=== PATIENT | female | born 1955 | race Caucasian/White ===

== ENCOUNTER 2017-11-27 12:50 | Emergency (ER) | payer BC ==
[2017-11-27] MEDS ORDERED: KETOROLAC 30 MG/ML INJ ONE (13:36)
[2017-11-27] MEDS ORDERED: NA CHLORIDE 0.9% 1,000 ML ONE (13:36)
[2017-11-27 13:37] LABS: Absolute Lymphocytes (CBC) 1.9 K/uL (0.7-4.9); Absolute Monocytes 0.3 K/uL (0.1-1.3); Absolute Neutrophil 3.4 K/uL (1.8-8.0); Basophils % 0.6 % (0-1.3); Eosinophils % 1.9 % (0-4.4); Hematocrit 38.2 % (36.0-45.0); Lymphocytes % 33.7 % (15.3-44.8); MCH 29.7 pg (27.0-35.0); MCV 87.5 fL (80-100); MPV 7.9 fL (7.6-11.3); Monocytes % 4.6 % (3.3-12.3); RBC Red Blood Cell Count 4.36 M/uL (3.86-4.86)
[2017-11-27 13:57] LABS: ALT/SGPT 28 U/L (12-78); AST/SGOT 16 U/L (15-37); Albumin 3.6 g/dL (3.4-5.0); Alkaline Phosphatase 112 U/L (45-117); BUN Blood Urea Nitrogen 13 mg/dL (7-18); Bicarbonate 28 mmol/L (21-32); Bilirubin Direct < 0.1 mg/dL (0-0.2); Bilirubin Total 0.4 mg/dL (0.2-1.0); Glucose Level 192 mg/dL (74-106); Lipase 107 U/L (73-393); Potassium 3.7 mmol/L (3.5-5.1); Protein, Total 7.3 g/dL (6.4-8.2); Sodium Level 146 mmol/L (136-145)
[2017-11-27 14:32] LABS: Urine Blood TRACE (NEG); Urine Glucose NEGATIVE (NEG); Urine Protein NEGATIVE (NEG); Urine Specific Gravity >1.030 (1.005-1.030); Urine pH 5.5 (5.0-7.0)
[2017-11-27 14:33] LABS: Urine Bacteria <20 /HPF (<20); Urine Culture Reflex Order NOT NEEDED; Urine Mucus 2+ /HPF (NONE SEEN); Urine RBC <5 /HPF (NONE SEEN)
--- NOTE | 2017-11-27 16:10 | RAD REPORT ---
EXAM DESCRIPTION: CT - Abdomen Pelvis W Contrast - 11/27/2017 3:13 pm CLINICAL HISTORY: Abdominal pain. Left lower quadrant pain COMPARISON: 2008 TECHNIQUE: Computed axial tomography of the abdomen and pelvis was obtained. 100 cc Isovue-300 is ad ministered intravenously. Oral contrast was given. All CT scans are performed using dose optimization technique as appropriate and may include automated exposure control or mA/KV adjustment according to patient size. FINDINGS: The gallbladder has been removed. The liver, spleen, pancreas, adrenals and kidneys appear unremarkable. There is no evidence of diverticulitis IMPRESSION: No acute abnormality is displayed
[2017-11-27] MEDS ORDERED: FENTANYL CITR 100 MCG/2 ML ONE (16:13)
--- NOTE | 2017-11-27 16:54 | EDPHYS ---
Physician Documentation [facility] Name: Ina Colmenares Age: 62 yrs Sex: Female : 1955 Arrival Date: 11/27/2017 Time: 12:52 Bed 27 Private MD: Shar Webb R ED Physician Kike Pro HPI: 11/27 17:13 This 62 yrs old Female presents to ER via Ambulatory with complaints of wa Abdominal Pain - x1 Week. 17:13 The patient presents with abdominal pain in the left lower quadrant. Onset: The wa symptoms/episode began/occurred 1 week(s) ago. The symptoms do not radiate. Associated signs and symptoms: Pertinent negatives: nausea and vomiting, diarrhea, fever, palpitations, shortness of breath, vomiting. Associated signs and symptoms:. The symptoms are described as sharp. Modifying factors: The symptoms are alleviated by nothing, the symptoms are aggravated by nothing. Severity of pain: At its worst the pain was moderate in the emergency department the pain is actually worse moderately. The patient has not experienced similar symptoms in the past. The patient has not recently seen a physician. Historical: - Allergies: 13:11 No Known Allergies; ph - PMHx: 13:11 Hypothyroidism; breast cancer; Hyperlipidemia; Depression; ph - PSHx: 13:11 bilateral mastectomy; cyst removal to dorsal right foot; ; Appendectomy; ph shoulder sx; Knee surgery; Hysterectomy; - Immunization history:: Adult Immunizations unknown. - Social history:: Smoking status: Patient/guardian denies using tobacco. - Ebola Screening: : No symptoms or risks identified at this time. - Family history:: not pertinent. - Hospitalizations: : No recent hospitalization is reported. ROS: 17:15 Constitutional: Negative for fever, chills, and weight loss, Eyes: Negative for injury, wa pain, redness, and discharge, ENT: Negative for injury, pain, and discharge, Neck: Negative for injury, pain, and swelling, Cardiovascular: Negative for chest pain, palpitations, and edema, Respiratory: Negative for shortness of breath, cough, wheezing, and pleuritic chest pain, Back: Negative for injury and pain, : Negative for injury, bleeding, discharge, and swelling, MS/Extremity: Negative for injury and deformity, Skin: Negative for injury, rash, and discoloration, Neuro: Negative for headache, weakness, numbness, tingling, and seizure. 17:15 Abdomen/GI: Positive for abdominal pain, of the left lower quadrant, Negative for nausea, vomiting, diarrhea. 17:15 All other systems are negative. Exam: 17:15 Constitutional: This is a well developed, well nourished patient who is awake, alert, wa and in no acute distress. Head/Face: Normocephalic, atraumatic. Eyes: Pupils equal round and reactive to light, extra-ocular motions intact. Lids and lashes normal. Conjunctiva and sclera are non-icteric and not injected. Cornea within normal limits. Periorbital areas with no swelling, redness, or edema. ENT: Nares patent. No nasal discharge, no septal abnormalities noted. Tympanic membranes are normal and external auditory canals are clear. Oropharynx with no redness, swelling, or masses, exudates, or evidence of obstruction, uvula midline. Mucous membranes moist. Neck: Trachea midline, no thyromegaly or masses palpated, and no cervical lymphadenopathy. Supple, full range of motion without nuchal rigidity, or vertebral point tenderness. No Meningismus. Cardiovascular: Regular rate and rhythm with a normal S1 and S2. No gallops, murmurs, or rubs. Normal PMI, no JVD. No pulse deficits. Respiratory: Lungs have equal breath sounds bilaterally, clear to auscultation and percussion. No rales, rhonchi or wheezes noted. No increased work of breathing, no retractions or nasal flaring. Back: No spinal tenderness. No costovertebral tenderness. Full range of motion. Skin: Warm, dry with normal turgor. Normal color with no rashes, no lesions, and no evidence of cellulitis. MS/ Extremity: Pulses equal, no cyanosis. Neurovascular intact. Full, normal range of motion. Neuro: Awake and alert, GCS 15, oriented to person, place, time, and situation. Cranial nerves II-XII grossly intact. Motor strength 5/5 in all extremities. Sensory grossly intact. Cerebellar exam normal. Normal gait. Psych: Awake, alert, with orientation to person, place and time. Behavior, mood, and affect are within normal limits. 17:15 Abdomen/GI: Inspection: abdomen appears normal, Bowel sounds: normal, in all quadrants, Palpation: soft, in all quadrants, moderate abdominal tenderness, in the suprapubic area, left upper quadrant and left lower quadrant. Vital Signs: 13:11 BP 129 / 76; Pulse 100; Resp 16; Temp 97.4; Pulse Ox 98% on R/A; Weight 81.65 kg; ph Height 5 ft. 7 in. (170.18 cm); Pain 9/10; 14:27 BP 116 / 71; Pulse 78; Resp 17; Pulse Ox 98% on R/A; kr2 14:45 BP 114 / 70; Pulse 76; Resp 19; Pulse Ox 99% on R/A; kr2 16:08 BP 148 / 82; Pulse 74; Resp 17; Pulse Ox 98% on R/A; kr2 17:11 BP 136 / 78; Pulse 72; Resp 16; Pulse Ox 99% on R/A; kr2 13:11 Body Mass Index 28.19 (81.65 kg, 170.18 cm) ph MDM: 13:01 Patient medically screened. me 17:16 Differential diagnosis: bowel obstruction, diverticulitis, non-specific abd pain, wa Pyelonephritis, Ureterolithiasis, urinary tract infection. 17:16 Data reviewed: vital signs, nurses notes, lab test result(s), radiologic studies. Test wa interpretation: by ED physician or midlevel provider: labs noted wnl. CT abd/pelvis: no acute process.. Test interpretation: by ED physician or midlevel provider: labs noted for hyperglycemia. Response to treatment: the patient's symptoms have markedly improved after treatment. Special discussion: negative work up in pt with LLQ abd pain. discussed hyperglycemia and the need to get f/u. will have f/u closely with GI and or PMD. 11/27 13:24 Order name: Basic Metabolic Panel 11/27 13:24 Order name: CBC with Diff; Complete Time: 15:08 11/27 13:24 Order name: Hepatic Function 11/27 13:24 Order name: Lipase; Complete Time: 15: me 11/27 13:24 Order name: Urine Microscopic Only; Complete Time: 15:11/27 13:25 Order name: Basic Metabolic Panel; Complete Time: 15:08 EDMS 11/27 13:24 Order name: IV Saline Lock; Complete Time: 13:31 me 11/27 13:24 Order name: Labs collected and sent; Complete Time: 13:31 me 11/27 13:25 Order name: Liver (Hepatic) Function; Complete Time: 15:08 [facility] 11/27 13:25 Order name: CT Abd/Pelvis - W/Contrast; Complete Time: 16:37 me 11/27 14:08 Order name: Urine Dipstick--Ancillary (enter results); Complete Time: 15:07 11/27 13:24 Order name: Urine Dipstick-Ancillary (obtain specimen); Complete Time: 13:31 me Administered Medications: 13:37 Drug: NS 0.9% 1000 ml Route: IV; Rate: 1 bolus; Site: right forearm; kr2 14:45 Follow up: Response: No adverse reaction; IV Status: Completed infusion kr2 13:37 Drug: TORadol 30 mg Route: IVP; Site: right forearm; kr2 14:00 Follow up: Response: No adverse reaction; Pain is decreased kr2 16:40 Drug: fentaNYL (PF) 50 mcg Route: IVP; Site: right forearm; kr2 17:10 Follow up: Response: No adverse reaction; Pain is decreased kr2 Disposition: 11/27/17 16:53 Discharged to Home. Impression: Acute left-Sided Abdominal Pain. - Condition is Stable. - Discharge Instructions: Abdominal Pain, Adult. - Prescriptions for Zofran 4 mg Oral Tablet - take 1 tablet by ORAL route every 12 hours As needed; 6 tablet. Woodson 5- 325 mg Oral Tablet - take 1 tablet by ORAL route every 6 hours As needed; 15 tablet. - Medication Reconciliation Form, Thank You Letter, Antibiotic Education, Prescription Opioid Use form. - Follow up: Kike Gloria MD; When: 1 - 2 days; Reason: Recheck today's complaints. - Problem is new. - Symptoms have improved. - Notes: return immediately for rapidly worsening pain adn or vomiting and or fever. see your doctor or the gastro doctor prescribed you within 72 hours for further assessment as the reason for your pain is not entirely clear at the moment Signatures: Dispatcher [employer] Susan Rivas RN RN Kike Pro MD MD wa Reaves, Karey, RN RN kr2 Corrections: (The following items were deleted from the chart) 17:12 16:53 11/27/2017 16:53 Discharged to Home. Impression: Acute left-Sided Abdominal Pain. kr2 Condition is Stable. Forms are Medication Reconciliation Form, Thank You Letter, Antibiotic Education, Prescription Opioid Use. Follow up: Kike Gloria; When: 1 - 2 days; Reason: Recheck today's complaints. Problem is new. Symptoms have improved. wa
--- NOTE | 2017-11-27 16:54 | ER ---
Nurse's Notes [facility] Name: Ina Colmenares Age: 62 yrs Sex: Female : 1955 Arrival Date: 11/27/2017 Time: 12:52 Bed 27 Private MD: Shar Webb R Diagnosis: Acute left-Sided Abdominal Pain Presentation: 11/27 13:08 Presenting complaint: Patient states: " I have been having pain in my side that comes ph around, I can't even stand up straight." Pt reports L flank pain that radiates to LLQ, also reports diarrhea, denies N/V or urinary symptoms. Transition of care: patient was not received from another setting of care. Onset of symptoms was November 27, 2017. Risk Assessment: Do you want to hurt yourself or someone else? Patient reports no desire to harm self or others. Initial Sepsis Screen: Does the patient meet any 2 criteria? No. Patient's initial sepsis screen is negative. Does the patient have a suspected source of infection? No. Patient's initial sepsis screen is negative. Care prior to arrival: None. 13:08 Method Of Arrival: Ambulatory ph 13:08 Acuity: SHE 3 ph Historical: - Allergies: 13:11 No Known Allergies; ph - PMHx: 13:11 Hypothyroidism; breast cancer; Hyperlipidemia; Depression; ph - PSHx: 13:11 bilateral mastectomy; cyst removal to dorsal right foot; ; Appendectomy; ph shoulder sx; Knee surgery; Hysterectomy; - Immunization history:: Adult Immunizations unknown. - Social history:: Smoking status: Patient/guardian denies using tobacco. - Ebola Screening: : No symptoms or risks identified at this time. - Family history:: not pertinent. - Hospitalizations: : No recent hospitalization is reported. Screenin:10 Abuse screen: Denies threats or abuse. Denies injuries from another. Nutritional kr2 screening: No deficits noted. Tuberculosis screening: No symptoms or risk factors identified. Fall Risk None identified. Assessment: 13:10 General: Appears in no apparent distress. uncomfortable, well groomed, well developed, kr2 well nourished, Behavior is cooperative, appropriate for age, anxious. Pain: Complains of pain in suprapubic area, anterior aspect of left lateral abdomen, left upper quadrant and left lower quadrant Pain currently is 8 out of 10 on a pain scale. Quality of pain is described as sharp, shooting, stabbing, Pain began 1 week ago, worse today Is continuous, Alleviated by rest, Aggravated by increased activity, repositioning. Neuro: Level of Consciousness is awake, alert, obeys commands, Oriented to person, place, time, situation, Appropriate for age. Cardiovascular: Capillary refill < 3 seconds in bilateral fingers. Respiratory: Airway is patent Respiratory effort is even, unlabored, Respiratory pattern is regular, symmetrical. GI: Bowel sounds present X 4 quads. Abd is soft X 4 quads Abdomen is tender to palpation in suprapubic area, left upper quadrant and left lower quadrant Reports upper abdominal pain. : Urine is clear. EENT: Oral mucosa is moist. Derm: Skin is intact, is healthy with good turgor, Skin is pink, warm \\T\\ dry. Musculoskeletal: Circulation, motion, and sensation intact. 14:26 Reassessment: Patient appears in no apparent distress at this time. Patient and/or kr2 family updated on plan of care and expected duration. Pain level reassessed. Patient is alert, oriented x 3, equal unlabored respirations, skin warm/dry/pink. Patient states symptoms have improved. 14:44 Reassessment: Patient appears in no apparent distress at this time. Patient and/or kr2 family updated on plan of care and expected duration. Pain level reassessed. Patient is alert, oriented x 3, equal unlabored respirations, skin warm/dry/pink. Patient reports having diarrhea, more than usual. States she normally takes a laxative so it is not unusual for her to have diarrhea but she has had more frequent "bouts today". 15:23 Reassessment: Patient appears in no apparent distress at this time. Patient and/or kr2 family updated on plan of care and expected duration. Pain level reassessed. Patient is alert, oriented x 3, equal unlabored respirations, skin warm/dry/pink. Patient states feeling better. 16:07 Reassessment: Patient appears in no apparent distress at this time. Patient and/or kr2 family updated on plan of care and expected duration. Pain level reassessed. Patient is alert, oriented x 3, equal unlabored respirations, skin warm/dry/pink. Patient reports pain is starting to return to left lower quadrant, provider notified. 17:11 Reassessment: Patient appears in no apparent distress at this time. Patient and/or kr2 family updated on plan of care and expected duration. Pain level reassessed. Patient is alert, oriented x 3, equal unlabored respirations, skin warm/dry/pink. Patient states feeling better. Patient states symptoms have improved. Vital Signs: 13:11 BP 129 / 76; Pulse 100; Resp 16; Temp 97.4; Pulse Ox 98% on R/A; Weight 81.65 kg; ph Height 5 ft. 7 in. (170.18 cm); Pain 9/10; 14:27 BP 116 / 71; Pulse 78; Resp 17; Pulse Ox 98% on R/A; kr2 14:45 BP 114 / 70; Pulse 76; Resp 19; Pulse Ox 99% on R/A; kr2 16:08 BP 148 / 82; Pulse 74; Resp 17; Pulse Ox 98% on R/A; kr2 17:11 BP 136 / 78; Pulse 72; Resp 16; Pulse Ox 99% on R/A; kr2 13:11 Body Mass Index 28.19 (81.65 kg, 170.18 cm) ph ED Course: 12:52 Patient arrived in ED. as 12:53 Shar Webb MD is Private Physician. as 13:01 Kike Pro MD is Attending Physician. wa 13:01 Josseline Cohen, ALBERT is Primary Nurse. kr2 13:10 Triage completed. ph 13:10 Patient has correct armband on for positive identification. Bed in low position. Call kr2 light in reach. Side rails up X 1. Pulse ox on. NIBP on. Door closed. Warm blanket given. Head of bed elevated. 13:12 Arm band placed on. ph 13:20 Urine collected: clean catch specimen, clear. Inserted saline lock: 20 gauge in right kr2 forearm, using aseptic technique. Blood collected. 15:13 CT Abd/Pelvis - W/Contrast In Process Unspecified. EDMS 16:52 Kike Gloria MD is Referral Physician. wa 17:10 No provider procedures requiring assistance completed. IV discontinued, intact, kr2 bleeding controlled, No redness/swelling at site. Pressure dressing applied. Administered Medications: 13:37 Drug: NS 0.9% 1000 ml Route: IV; Rate: 1 bolus; Site: right forearm; kr2 14:45 Follow up: Response: No adverse reaction; IV Status: Completed infusion kr2 13:37 Drug: TORadol 30 mg Route: IVP; Site: right forearm; kr2 14:00 Follow up: Response: No adverse reaction; Pain is decreased kr2 16:40 Drug: fentaNYL (PF) 50 mcg Route: IVP; Site: right forearm; kr2 17:10 Follow up: Response: No adverse reaction; Pain is decreased kr2 Outcome: 16:53 Discharge ordered by . naveen 17:10 Discharged to home via wheelchair, with family. kr2 17:10 Condition: stable 17:10 Discharge instructions given to patient, family, Instructed on discharge instructions, follow up and referral plans. medication usage, Demonstrated understanding of instructions, follow-up care, medications, Prescriptions given X 2. 17:12 Patient left the ED. kr2 Signatures: Dispatcher [employer] EDTaniya Jones Patricia, RN RN Kike Pro MD MD wa Reaves, Karey, RN RN kr2
[2017-11-27 17:19] VITALS: TEMP 97.4
[2017-11-27 17:24] VITALS: BP 136/78; O2SAT 99
== END 2017-11-27 17:12 | disposition home or self-care (01) ==
LOC: ER 12:50
DX: R10.32 Left lower quadrant pain (principal); E03.9 Hypothyroidism, unspecified; Z85.3 Personal history of malignant neoplasm of breast; Z90.13 Acquired absence of bilateral breasts and nipples
CPT/HCPCS: 36415; 74177; 80048; 80076; 81003; 81015; 83690; 85025; 96361; 96374; 96375; 99284; J3010; J7030; Q9967

== ENCOUNTER 2018-02-14 16:29 | Emergency (ER) | payer BC ==
[2018-02-14 17:21] LABS: Absolute Lymphocytes (CBC) 2.9 K/uL (0.7-4.9); Absolute Monocytes 0.3 K/uL (0.1-1.3); Absolute Neutrophil 5.7 K/uL (1.8-8.0); Basophils % 0.5 % (0-1.3); Eosinophils % 0.5 % (0-4.4); Hematocrit 35.4 % (36.0-45.0); Lymphocytes % 32.3 % (15.3-44.8); MCH 30.3 pg (27.0-35.0); MCV 88.5 fL (80-100); MPV 7.9 fL (7.6-11.3); Monocytes % 3.5 % (3.3-12.3)
[2018-02-14] MEDS ORDERED: NA CHLORIDE 0.9% 1,000 ML ONE (17:23)
[2018-02-14] MEDS ORDERED: ONDANSETRON 4 MG/2 ML VIAL ONE (17:23)
--- NOTE | 2018-02-14 17:23 | RAD REPORT ---
EXAM DESCRIPTION: CT - Head Brain Wo Cont - 02/14/2018 5:16 pm CLINICAL HISTORY: DIZZINESS Syncope, head injury COMPARISON: Head Brain Wo Cont dated 03/06/2017; HEAD BRAIN W O CONTRAST dated 03/04/2014 TECHNIQUE: All CT scans are performed using dose optimization technique as appropriate and may inclu de automated exposure control or mA/KV adjustment according to patient size. FINDINGS: No intracranial hemorrhage, hydrocephalus or extra-axial fluid collection.No areas of brai n edema or evidence of midline shift. The paranasal sinuses and mastoids are clear. The calvarium is intact. IMPRESSION: No acute intracranial abnormality.
[2018-02-14 17:27] LABS: Protime INR 1.05
--- NOTE | 2018-02-14 17:31 | RAD REPORT ---
EXAM DESCRIPTION: RAD - Chest Single View - 02/14/2018 5:25 pm CLINICAL HISTORY: Dizziness Chest pain. COMPARISON: CHEST PA AND LAT 2 VIEW dated 03/10/2015; CHEST SINGLE VIEW dated 03/04/2014; ABDOMEN 1 VIEW KUB dated 09/17/2013; CHEST PA AND LAT 2 VIEW dated 09/17/2013 FINDINGS: Portable technique limits examination quality. The lungs are grossly clear. The heart is normal in size. No displaced fractures. IMPRESSION: No acute intrathoracic process suspected.
[2018-02-14] MEDS ORDERED: MECLIZINE HCL 12.5 MG TAB ONE (17:38)
[2018-02-14 17:43] LABS: ALT/SGPT 23 U/L (12-78); AST/SGOT 12 U/L (15-37); Albumin 3.3 g/dL (3.4-5.0); Alkaline Phosphatase 97 U/L (45-117); BUN Blood Urea Nitrogen 40 mg/dL (7-18); Bicarbonate 25 mmol/L (21-32); Bilirubin Direct < 0.1 mg/dL (0-0.2); Bilirubin Total 0.3 mg/dL (0.2-1.0); Glucose Level 161 mg/dL (74-106); Magnesium 2.2 mg/dL (1.8-2.4); NT PRO-BNP 40 pg/mL (<125); Potassium 3.8 mmol/L (3.5-5.1); Protein, Total 6.9 g/dL (6.4-8.2); Sodium Level 144 mmol/L (136-145); Troponin (Emerg Dept Use Only) < 0.02 ng/mL (0.0-0.045)
--- NOTE | 2018-02-14 18:32 | RAD REPORT ---
EXAM DESCRIPTION: CT - Neck Angio - 02/14/2018 6:19 pm CLINICAL HISTORY: dizziness,weakness TIA, CVA COMPARISON: Head Brain Wo Cont dated 02/14/2018 TECHNIQUE: CT angiography of the neck vessels was performed with MIPs. All CT scans are performed using dose optimization technique as appropriate and may include automated exposure control or mA/KV adjustment according to patient size. FINDINGS: A left aortic arch is identified with normal three vessel configuration of the great vesse ls. No significant flow abnormality is seen of the common carotid bilaterally. No significant stenosis is identified involving the cervical segments of both internal carotid arteri es. Normal flow is seen within both vertebral arteries. Cervical spine postsurgical fusion changes are noted spanning C4-7. IMPRESSION: No significant flow abnormality of the neck vessels is identified.
--- NOTE | 2018-02-14 18:34 | RAD REPORT ---
EXAM DESCRIPTION: CT - Head angio - 02/14/2018 6:19 pm CLINICAL HISTORY: dizziness,weakness TIA, CVA COMPARISON: Head Brain Wo Cont dated 02/14/2018; Head Brain Wo Cont dated 03/06/2017 TECHNIQUE: CT angiography of the head was performed with MIPs. All CT scans are performed using dose optimization technique as appropriate and may include automated exposure control or mA/KV adjustment according to patient size. FINDINGS: No evidence of aneurysm is detected. No flow-limiting stenosis or vascular malformation id entified. Antegrade flow is seen in the vertebral arteries. The vertebral arteries are codominant. The visualized dural venous sinuses are patent. IMPRESSION: No significant flow abnormality is detected.
--- NOTE | 2018-02-14 18:51 | ER ---
Nurse's Notes [facility] Name: Ina Gaffney Age: 62 yrs Sex: Female : 1955 Arrival Date: 02/14/2018 Time: 16:30 Bed 8 Private MD: Shar Webb R Diagnosis: CVA;Dizziness;Blurred Vision Presentation: 02/14 16:39 Presenting complaint: Patient states: "When I stand up and walk I get really dizzy and aj1 I everything is blurry and I start sweating." Patient denies any other symptoms. Denies N/V/D. Denies fever. Denies cough,congestion. Denies CP, SOB. Transition of care: patient was not received from another setting of care. 16:39 Method Of Arrival: Wheelchair aj1 16:41 Onset of symptoms was February 14, 2018 at 09:00. Risk Assessment: Do you want to hurt aj1 yourself or someone else? Patient reports no desire to harm self or others. Initial Sepsis Screen: Does the patient meet any 2 criteria? HR > 90 bpm. No. Patient's initial sepsis screen is negative. Care prior to arrival: None. 16:41 Acuity: SHE 2 aj1 17:06 Initial Sepsis Screen: Does the patient have a suspected source of infection? No. ph Patient's initial sepsis screen is negative. Triage Assessment: 16:44 General: Appears uncomfortable, Behavior is calm, cooperative, appropriate for age. aj1 Pain: Complains of pain in left lateral anterior chest Pain currently is 9 out of 10 on a pain scale. Neuro: Level of Consciousness is awake, alert, obeys commands. Cardiovascular: Denies chest pain, shortness of breath. Respiratory: Airway is patent Respiratory effort is even, unlabored, Respiratory pattern is regular, symmetrical. Derm: Skin is clammy, Skin is pale. Historical: - Allergies: 16:44 No Known Allergies; aj1 - Home Meds: 16:44 atorvastatin oral oral [Active]; Zoloft Oral [Active]; Omeprazole Oral [Active]; aj1 Bupropion Oral [Active]; sertraline oral oral [Active]; - PMHx: 16:44 breast cancer; Depression; Hyperlipidemia; Hypothyroidism; aj1 - PSHx: 16:44 mass removed from stomach; Mastectomy, Left; aj1 - Immunization history:: Flu vaccine is not up to date. - Social history:: Smoking status: Patient/guardian denies using tobacco, the patient reports quitting approximately 0.5 years ago. - Ebola Screening: : Patient denies travel to an Ebola-affected area in the 21 days before illness onset. Screenin:04 Abuse screen: Denies threats or abuse. Denies injuries from another. Nutritional ph screening: No deficits noted. Tuberculosis screening: No symptoms or risk factors identified. Fall Risk No fall in past 12 months (0 pts). No secondary diagnosis (0 pts). IV access (20 points). Ambulatory Aid- None/Bed Rest/Nurse Assist (0 pts). Gait- Weak (10 pts.). Mental Status- Oriented to own ability (0 pts). 17:40 Patient has been NPO before screening. The patient is alert, able to follow commands. ph The patient does not exhibit slurred or garbled speech The patient is not exhibiting difficulty speaking. The patient does not exhibit difficulty understanding words. The patient is able to swallow own secretions with no drooling or need for suction. Patient tolerated one teaspoon of water. No drooling, immediate coughing, gurgling, or clearing of the throat was noted. The patient tolerated 90mL of water. No drooling, immediate coughing, gurgling, or clearing of the throat was noted. The patient passed the bedside swallow screening. Oral medications may be given as ordered. Contact Physician for further diet orders. Assessment: 17:02 General: Appears in no apparent distress. comfortable, well groomed, Behavior is calm, ph cooperative, appropriate for age, Denies fever, feeling ill. Pain: Denies pain. Neuro: Level of Consciousness is awake, alert, obeys commands, Oriented to person, place, time, situation, Bellows Assembler are equal bilaterally Moves all extremities. Full function Speech is normal, Facial symmetry appears normal, Facial symmetry: tongue is midline, Pupils are PERRLA, Intact Reports dizziness, weakness " all over". Cardiovascular: Capillary refill < 3 seconds in bilateral fingers Patient's skin is warm and dry. Respiratory: Airway is patent Respiratory effort is even, unlabored. GI: Reports nausea, Patient currently denies abdominal pain, vomiting. Derm: Skin is intact, Skin is pale. Musculoskeletal: Circulation, motion, and sensation intact. Range of motion: intact in all extremities. 17:45 Reassessment: Patient appears in no apparent distress at this time. Patient and/or ph family updated on plan of care and expected duration. Pain level reassessed. Patient is alert, oriented x 3, equal unlabored respirations, skin warm/dry/pink. Pt resting quietly, awaiting lab and radiology results, family at bedside. 18:00 Reassessment: Patient appears in no apparent distress at this time. Patient is alert, ph oriented x 3, equal unlabored respirations, skin warm/dry/pink. Pt c/o headache, states, " My head started hurting all of a sudden." ERP notified and Dr Manuel at bedside to see pt. Neuro: Reports blurred vision headache frontal area. 18:40 Reassessment: Pt assisted up to the bedside commode. c/o dizziness. Urine specimen sv obtained. 20:23 Reassessment: Patient and/or family updated on plan of care and expected duration. Pain ea level reassessed. Patient is alert, oriented x 3, equal unlabored respirations, skin warm/dry/pink. [facility] at facility for transport to [facility] in the [facility]. Pt transported via stretcher per EMS. Vital Signs: 16:44 BP 92 / 67; Pulse 121; Resp 20; Temp 98.1; Pulse Ox 97% on R/A; Weight 79.38 kg (R); aj1 Height 5 ft. 6 in. (167.64 cm) (R); Pain 9/10; 17:44 BP 99 / 68; Pulse 94; Resp 20; Pulse Ox 98% on R/A; ph 18:18 BP 113 / 71; Pulse 96; Resp 16; Pulse Ox 98% on R/A; ph 19:09 BP 117 / 74; Pulse 87; Resp 18; Pulse Ox 97% on R/A; tl2 20:21 BP 121 / 78; Pulse 80; Resp 18; Temp 97.6; Pulse Ox 98% ; ea 16:44 Body Mass Index 28.25 (79.38 kg, 167.64 cm) aj1 NIH Stroke Scale Scores: 17:05 NIHSS Score: 0 ph ED Course: 16:30 Patient arrived in ED. as 16:31 Shar Webb MD is Private Physician. as 16:42 Triage completed. aj1 16:44 Arm band placed on Patient placed in an exam room. aj1 16:48 Susan Garcia, RN is Primary Nurse. ph 16:49 Allan Nevarez PA is PHCP. jmm 16:49 Saad Manuel MD is Attending Physician. jmm 17:05 Inserted saline lock: 20 gauge in right forearm, using aseptic technique. Blood ph collected. 17:06 Patient has correct armband on for positive identification. Placed in gown. Bed in low ph position. Call light in reach. Side rails up X2. rubber printing machine operator on. Pulse ox on. NIBP on. Warm blanket given. 17:12 EKG done, by medical technologist prn. reviewed by Allan MCGINNIS. sm3 17:[address] jg6 17:15 CT completed. Patient tolerated procedure well. Patient moved back from [place]. n[place] 17:15 CT Head Brain wo Cont In Process Unspecified. EDMS 17:25 XRAY Chest (1 view) In Process Unspecified. EDMS 18:19 Head angio In Process Unspecified. EDMS 18:19 Neck Angio In Process Unspecified. EDMS 18:43 initiated transfer with Ligia Cisse from the [facility] transfer center. eb 18:45 Urine collected: clean catch specimen, clear. sv 18:[address] Harvey with Allan MCGINNIS for patient transfer consultation. eb 18:57 connected the hospitalist production planning manager from [facility] with Allan MCGINNIS. eb 18:58 No provider procedures requiring assistance completed. Patient transferred, IV remains ph in place. 19:08 Received admin approval for transfer from Ligia Cisse. Pt to go to Room 2263. cc Administered Medications: 17:42 Drug: NS 0.9% 1000 ml Route: IV; Rate: 1 bolus; Site: right forearm; ph 20:26 Follow up: Response: No adverse reaction; IV Status: Completed infusion ea 17:43 Drug: Zofran 4 mg Route: IVP; Site: right forearm; ph 19:01 Follow up: Response: No adverse reaction ph 17:44 Drug: Meclizine 25 mg Route: PO; ph 19:01 Follow up: Response: No adverse reaction ph Output: 18:53 Urine: 120ml (Voided); Total: 120ml. sv Outcome: 18:51 ER care complete, transfer ordered by MD. weller 20:22 Transferred by ground [place] [facility] [place]. kailee 20:22 Condition: stable 20:22 Instructed on the need for transfer. 20:26 Patient left the ED. kailee NIH Stroke Scale - NIH Stroke Score Date: 02/14/2018 Time: 17:05 Total Score = 0 1a. Level of Consciousness (LOC) - 0(Alert) 1b. Level of Consciousness (LOC) (Year \\T\\ Age) - 0(Both) 1c. LOC Commands (Open \\T\\ Closes Eyes/Maintenance Service Dispatcher) - 0(Both) 2. Best Gaze (Lateral Gaze Paresis) - 0(Normal) 3. Visual Field Loss - 0(No visual loss) 4. Facial Palsy - 0(Normal) 5a. Left Arm: Motor (10-second hold) - 0(No drift) 5b. Right Arm: Motor (10-second hold) - 0(No drift) 6a. Left Leg: Motor (5-second hold - always test supine) - 0(No drift) 6b. Right Leg: Motor (5-second hold - always test supine) - 0(No drift) 7. Limb Ataxia (finger/nose \\T\\ heel/zelaya - test with eyes open) - 0(Absent) 8. Sensory Loss (pinprick arms/legs/face) - 0(Normal) 9. Best Language: Aphasia (description/naming/reading) - 0(No aphasia) 10. Dysarthria (speech clarity - read or repeat words) - 0(Normal) 11. Extinction and Inattention (visual/tactile/auditory/spatial/personal) - 0(No abnormality) Initials: ph Signatures: Dispatcher [employer] EDMS Linda Wilkinson RN RN ajJennifer Morton RN RN Allan Love PA PA jmm Martinez, Amelia as Christian, Chelsea cc Hall, Patricia, RN RN ph Knox, Taylor, RN RN tl2 Boo Goodwin Elena, RN RN ea Botello, Elizabeth eb Montes, Shakira 3 Saida Hall Corrections: (The following items were deleted from the chart) 17:19 17:02 GI: No signs and/or symptoms were reported involving the gastrointestinal ph system. ph 18:50 18:49 initiated transfer with Ligia Cisse from the [facility] transfer eb center eb
--- NOTE | 2018-02-14 18:51 | EDPHYS ---
Physician Documentation [facility] Name: Ina Gaffney Age: 62 yrs Sex: Female : 1955 Arrival Date: 02/14/2018 Time: 16:30 Bed 8 Private MD: Shar Webb R ED Physician Saad Manuel HPI: 02/14 17:02 This 62 yrs old Female presents to ER via Wheelchair with complaints of [facility] Dizziness, Weakness. 17:02 The patient presents with dizziness. Onset: The symptoms/episode began/occurred at [facility] 09:30. Modifying factors: The symptoms are alleviated by holding head still, the symptoms are aggravated by movement of head, standing up, changing position. Associated signs and symptoms: Pertinent positives: headache, nausea. This is a 62 year old female with a history of HLP that presents to the ED with acute onset dizziness beginning at 0930 that is exacerbated by change in position. Patient complains of headache, denies chest pain. Patient also states having blurred vision which is not exacerbated by change in position or movement. . Historical: - Allergies: 16:44 No Known Allergies; aj1 - Home Meds: 16:44 atorvastatin oral oral [Active]; Zoloft Oral [Active]; Omeprazole Oral [Active]; aj1 Bupropion Oral [Active]; sertraline oral oral [Active]; - PMHx: 16:44 breast cancer; Depression; Hyperlipidemia; Hypothyroidism; aj1 - PSHx: 16:44 mass removed from stomach; Mastectomy, Left; aj1 - Immunization history:: Flu vaccine is not up to date. - Social history:: Smoking status: Patient/guardian denies using tobacco, the patient reports quitting approximately 0.5 years ago. - Ebola Screening: : Patient denies travel to an Ebola-affected area in the 21 days before illness onset. ROS: 17:02 Constitutional: Negative for fever, chills, and weight loss, Eyes: Negative for injury, jmm pain, redness, and discharge, Cardiovascular: Negative for chest pain, palpitations, and edema, Respiratory: Negative for shortness of breath, cough, wheezing, and pleuritic chest pain, Abdomen/GI: Negative for abdominal pain, nausea, vomiting, diarrhea, and constipation. 17:02 Neuro: Positive for dizziness, headache. 17:02 All other systems are negative. Exam: 17:02 Constitutional: This is a well developed, well nourished patient who is awake, alert, jmm and in no acute distress. 17:02 Constitutional: The patient appears alert, awake, anxious, uncomfortable. 17:02 Eyes: Extraocular movements: intact throughout, Conjunctiva: normal. 17:02 Cardiovascular: Rate: tachycardic, Rhythm: regular. 17:02 Respiratory: the patient does not display signs of respiratory distress, Respirations: normal, Breath sounds: are clear throughout. 17:02 Abdomen/GI: Inspection: abdomen appears normal, Bowel sounds: normal, Palpation: abdomen is soft and non-tender. 17:02 Musculoskeletal/extremity: ROM: intact in all extremities. 17:02 Skin: Appearance: Color: normal in color. 17:02 Neuro: Orientation: is normal, Mentation: is normal, Memory: is normal, Cerebellar function: normal finger to nose testing. 17:02 Psych: Behavior/mood is pleasant, cooperative. Vital Signs: 16:44 BP 92 / 67; Pulse 121; Resp 20; Temp 98.1; Pulse Ox 97% on R/A; Weight 79.38 kg (R); aj1 Height 5 ft. 6 in. (167.64 cm) (R); Pain 9/10; 17:44 BP 99 / 68; Pulse 94; Resp 20; Pulse Ox 98% on R/A; ph 18:18 BP 113 / 71; Pulse 96; Resp 16; Pulse Ox 98% on R/A; ph 19:09 BP 117 / 74; Pulse 87; Resp 18; Pulse Ox 97% on R/A; tl2 20:21 BP 121 / 78; Pulse 80; Resp 18; Temp 97.6; Pulse Ox 98% ; ea 16:44 Body Mass Index 28.25 (79.38 kg, 167.64 cm) aj1 NIH Stroke Scale Scores: 17:05 NIHSS Score: 0 ph MDM: 17:02 Patient medically screened. [facility] 18:49 Data reviewed: vital signs, nurses notes. Counseling: I had a detailed discussion with janee the patient and/or guardian regarding: the historical points, exam findings, and any diagnostic results supporting the discharge/admit diagnosis, the need to transfer to another facility. ED course: I discussed the patient with Dr. Mcbride whom accepted transfer. . 18:49 Data reviewed: lab test result(s), EKG, radiologic studies, CT scan. [facility] 02/14 17:03 Order name: Basic Metabolic Panel; Complete Time: 17:44 [facility] 02/14 17:03 Order name: CBC with Diff; Complete Time: 17:29 [facility] 02/14 17:03 Order name: LFT's; Complete Time: 17:44 [facility] 02/14 17:03 Order name: Magnesium; Complete Time: 17:44 [facility] 02/14 17:03 Order name: NT PRO-BNP; Complete Time: 17:44 [facility] 02/14 17:03 Order name: PT-INR; Complete Time: 17:29 [facility] 02/14 17:03 Order name: Troponin (emerg Dept Use Only); Complete Time: 17:44 [facility] 02/14 17:03 Order name: XRAY Chest (1 view); Complete Time: 17:42 [facility] 02/14 17:03 Order name: CT Head Brain wo Cont; Complete Time: 17:29 [facility] 02/14 17:58 Order name: Head angio; Complete Time: 18:37 [facility] 02/14 17:58 Order name: Neck Angio; Complete Time: 18:37 [facility] 02/14 18:54 Order name: Urine Dipstick--Ancillary (enter results); Complete Time: 19:24 02/14 17:03 Order name: EKG; Complete Time: 17:04 [facility] 02/14 17:03 Order name: Cardiac monitoring; Complete Time: 17:09 [facility] 02/14 17:03 Order name: EKG - Nurse/Tech; Complete Time: 17:09 [facility] 02/14 17:03 Order name: IV Saline Lock; Complete Time: 17:09 [facility] 02/14 17:03 Order name: Labs collected and sent; Complete Time: 17:09 [facility] 02/14 17:03 Order name: O2 Per Protocol; Complete Time: 17:09 [facility] 02/14 17:03 Order name: O2 Sat Monitoring; Complete Time: 17:09 [facility] 02/14 18:43 Order name: Urine Dipstick-Ancillary (obtain specimen); Complete Time: 18:52 [facility] Administered Medications: 17:42 Drug: NS 0.9% 1000 ml Route: IV; Rate: 1 bolus; Site: right forearm; ph 20:26 Follow up: Response: No adverse reaction; IV Status: Completed infusion ea 17:43 Drug: Zofran 4 mg Route: IVP; Site: right forearm; ph 19:01 Follow up: Response: No adverse reaction ph 17:44 Drug: Meclizine 25 mg Route: PO; ph 19:01 Follow up: Response: No adverse reaction ph Disposition: 02/15 10:24 Co-signature as Attending Physician, Saad Manuel MD I agree with the assessment and rn plan of care. PA/OPHTHALMIC ASSISTANT's history reviewed, patient interviewed, and examined. Attestation: The patient's history, exam findings, diagnostics, and a summary of any interventions or procedures was reviewed in detail with Allan MCGINNIS. Disposition: 02/14/18 18:[address] [facility]. Diagnosis are CVA, Dizziness, Blurred Vision. - Reason for transfer: Higher level of care. - Accepting physician is Reed. - Condition is Stable. - Problem is new. - Symptoms are unchanged. NIH Stroke Scale - NIH Stroke Score Date: 02/14/2018 Time: 17:05 Total Score = 0 1a. Level of Consciousness (LOC) - 0(Alert) 1b. Level of Consciousness (LOC) (Year \T\ Age) - 0(Both) 1c. LOC Commands (Open \T\ Closes Eyes/Studio Musician) - 0(Both) 2. Best Gaze (Lateral Gaze Paresis) - 0(Normal) 3. Visual Field Loss - 0(No visual loss) 4. Facial Palsy - 0(Normal) 5a. Left Arm: Motor (10-second hold) - 0(No drift) 5b. Right Arm: Motor (10-second hold) - 0(No drift) 6a. Left Leg: Motor (5-second hold - always test supine) - 0(No drift) 6b. Right Leg: Motor (5-second hold - always test supine) - 0(No drift) 7. Limb Ataxia (finger/nose \T\ heel/zelaya - test with eyes open) - 0(Absent) 8. Sensory Loss (pinprick arms/legs/face) - 0(Normal) 9. Best Language: Aphasia (description/naming/reading) - 0(No aphasia) 10. Dysarthria (speech clarity - read or repeat words) - 0(Normal) 11. Extinction and Inattention (visual/tactile/auditory/spatial/personal) - 0(No abnormality) Initials: ph Signatures: Dispatcher [employer] EDLinda Gordon RN RN aj1 Allan Nevarez PA PA jmm Nieto, Roman, MD MD rn Hall, Patricia, RN RN ph Antunez, Elena, RN RN ea Corrections: (The following items were deleted from the chart) 02/14 20:26 18:51 02/14/2018 18:[address] [facility]. ea Diagnosis is CVA; Dizziness; Blurred Vision. Reason for transfer: Higher level of care. Accepting physician is Reed. Condition is Stable. Problem is new. Symptoms are unchanged. janee
[2018-02-14 19:10] LABS: Urine Blood NEGATIVE (NEG); Urine Glucose NEGATIVE (NEG); Urine Protein NEGATIVE (NEG)
[2018-02-14 20:42] VITALS: BP 121/78; TEMP 97.6; O2SAT 98
--- NOTE | 2018-02-15 07:50 | EKG ---
Test Date: 2018-02-14 Test Time: 17:05:17 Business Advisor: AYALA MEASUREMENT RESULTS: Intervals: Rate: 110 CO: 150 QRSD: 78 QT: 346 QTc: 468 [place]: P: 37 CO: 150 QRS: 24 T: 33 INTERPRETIVE STATEMENTS: Sinus tachycardia Otherwise normal ECG Compared to ECG 10/27/2007 00:25:31 No significant changes Electronically Signed On 02-15-18 07:48:47 CDT by Brenden Vaz
== END 2018-02-14 20:26 | disposition short-term general hospital (02) ==
LOC: ER 16:29
DX: I63.9 Cerebral infarction, unspecified (principal); H53.8 Other visual disturbances; E03.9 Hypothyroidism, unspecified; E78.5 Hyperlipidemia, unspecified; F32.9 Major depressive disorder, single episode, unspecified; Z85.3 Personal history of malignant neoplasm of breast; Z90.12 Acquired absence of left breast and nipple
CPT/HCPCS: 36415; 70450; 70496; 70498; 71045; 80048; 80076; 81003; 83735; 83880; 84484; 85025; 85610; 93005; 96361; 96374; 99285; J2405; J7030; Q9967

== ENCOUNTER 2020-12-22 18:58 | Emergency (ER) | payer BC, OTHER ==
--- OUTSIDE RECORDS SUMMARY | 2020-12-22 19:02 | XMS REPORT | Continuity of Care Document ---
:1955 Author Organization [facility] t Address [address] [place] [address] Care Team Providers Name Role Phone Alberto Bautista Primary Care Physician Unavailable Kike Kendrick Attending Clinician Stephie SANDERSON Attending Clinician Unavailable Stephie SANDERSON Admitting Clinician Unavailable Problems Condition Condition Condition Status Onset Resolution Last Treating Co mments Source Name Details Category Date Date Treatment Clinician Date Diplopia Diplopia Disease [facility] Anemia, Anemia, Disease Active 2017-[address] [facility] unspecifie unspecifie 0-09 Sharon kes - d type d type 00:00: [facility] Dizziness Dizziness Disease Active 2017-[address] [facility] Hypothyroi Hypothyroi Disease Active 2017-[address] [facility]m [facility]m [facility] Hyperlipid Hyperlipid Disease Active 2017-[address] emia emia [facility] Depression Depression Disease Active 2017-[address] [facility] Anemia Anemia Disease Active 2017-[address] [facility] Headache Headache Disease Active 2017[facility] [address] [place] [address] Cobalamin Problem Active 2019-09-05 Me moria deficiency 21:43:33 l (disorder) René n Cobalamin deficiency (disorder) Active Problem 09/05/2019 [facility] Malignant Problem Active 2019-09-05 Me moria tumor of 21:43:33 l breast [place] (disorder) Malignant tumor of breast (disorder) Active Problem 09/05/2019 [facility] Simple Problem Active 2019-09-05 Memor ia obesity 21:43:33 l (disorder) Simple Herm alan obesity (disorder) Active Problem 09/05/2019 [facility] Tremor Problem Active 2019-09-05 Memor ia (finding) 21:43:33 l Tremor [place] (finding) Active Problem 09/05/2019 [facility] Vertigo Problem Active 2019-09-05 Brandt filemon (finding) 21:43:33 l Vertigo Servando (finding) Active Problem 09/05/2019 [facility] Allergies, Adverse Reactions, Alerts This patient has no known allergies or adverse reactions. Social History Social Habit Start Date Stop Date Quantity Comments Source Sex Assigned At [facility] Cigarettes smoked 2015-09-13 2015-09-13 [facility] - current (pack per 00:00:00 00:00:00 [facility] Center day) - Reported Cigarette 2015-09-13 2015-09-13 [facility] - pack-years 00:00:00 00:00:00 [facility] Tobacco use and 2015-09-13 2015-09-13 Never used [facility] - exposure 00:00:00 00:00:00 [facility] Alcohol intake 2015-09-13 2015-09-13 [facility]00 of alcohol [facility] (finding) Alcohol Comment 2015-09-08 2015-09-08 twice monthly [facility] - 00:00:00 00:00:00 [facility] Smoking Status Start Date Stop Date Source Social History 2019-01-14 14:04:35 Chris handley Current every day smoker 2015-09-13 00:00:00 [facility] Medications Ordered Filled Start Stop Current Ordering Indication Dosage Frequency Signature Comments Components Source Medication Medication Date Date Medication? Clinician (SIG) Name Name topiramate 2018-05 Yes 50 mg = 1 Me moria 50 mg oral 0-01 cap, PO, l capsule, 12:50: Daily, # Rachel nn extended 00 30 cap, 3 release Refill(s), Pharmacy: [facility] #[id number] primidone 2019-0 Yes 50 mg = 1 Mem oria 50 mg oral 9-10 tab, PO, l tablet 14:36: BID, # 180 Rachel nn 37 tab, 3 Refill(s), Pharmacy: [facility] #[id number] primidone 2018-0 Yes 50 mg = 1 Mem oria 50 mg oral 9-04 tab, PO, l tablet 14:12: BID, # 60 René n 00 tab, 3 Refill(s), Pharmacy: [facility] #[id number] 24 HR Yes 50 mg = 1 Memoria topiramate 8-14 cap, PO, l 50 MG 15:55: Daily, # [place] Extended 00 30 cap, 4 Release Refill(s), Capsule Pharmacy: [[facility]] [id number] 24 HR Yes 25 mg = 1 Memoria topiramate 4-16 cap, PO, l 25 MG 14:15: Bedtime, # René n Extended 00 30 cap, 3 Release Refill(s), Capsule Pharmacy: [[facility]] [id number] topiramate 2018- No 25 mg = 1 Me moria 25 MG Oral 1-11 tab, PO, l Tablet 19:11: Bedtime, # Rachel nn [Topamax] 00 90 tab, 2 Refill(s), Pharmacy: [id number] topiramate 2017-05 No 25 mg = 1 Me moria 25 MG Oral 2-11 tab, PO, l Tablet 18:30: Bedtime, X Rachel nn [Topamax] 00 30 day, # 30 tab, 3 Refill(s), Pharmacy: [id number] Vitamin B12 2017-05 Yes 1,000 Memor ia 1000 mcg/mL 1-27 microgram l injectable 15:43: = 1 mL, Herm alan solution 00 IM, qWeek, # 10 mL, 0 Refill(s) atorvastati 2017-05 Yes 10 mg = 1 M emoria n 10 mg 1-27 tab, PO, l oral tablet 14:28: Bedtime, # [place] 00 30 tab, 0 Refill(s) levothyroxi 2017-05 Yes 50 Memori a ne 50 mcg 1-27 microgram l (0.05 mg) 14:28: = 1 tab, Herm alan oral tablet 00 PO, Daily, # 30 tab, 0 Refill(s) sertraline 2017-05 Yes 50 mg = 1 Me moria 50 mg oral 1-27 tab, PO, l tablet 14:28: Daily, # [place] 00 30 tab, 0 Refill(s) Aspirin 81 2017-05 Yes 81 mg = 1 Me moria MG Enteric -27 tab, PO, l Coated 14:28: Daily, # [place] Tablet 00 90 tab, 3 Refill(s) buPROPion 2017-05 Yes 100 mg = 1 Me moria 100 mg oral -27 tab, PO, l tablet 14:28: BID, # 180 Rachel nn 00 tab, 0 Refill(s) omeprazole 2017-05 Yes 10 mg = 1 Me moria 10 mg oral - cap, PO, l delayed 14:28: Daily, # René n release 00 30 cap, 0 capsule Refill(s) atorvastati 2017-05 Yes 10mg QD Take [address] [facility] (LIPITOR) 0-13 by mouth [facility] - 10 MG 10:56: daily. Medical tablet 59 Center sertraline 2017-05 Yes 50mg QD Take [address] (ZOLOFT) 50 0-13 by mouth [facility] - MG tablet 10:56: daily. Medica l 59 Center omeprazole 2017-05 Yes heartburn 10mg QD Take [address] [facility] (PRILOSEC) 0-13 [facility] - 10 MG 10:56: daily. Medical capsule 59 Center buPROPion 2017-05 Yes smoking 100mg Q.5D Take [address] [facility] [facility] (WELLBUTRIN 0-13 cessation mg by Sharon kes - ) 100 MG 10:56: mouth 2 Medica l tablet 59 (two) Center times daily. cyanocobala 2017-05 Yes 1000ug Q7D Inject [address] [facility] [facility] min 0-13 mL (1,000 [facility] - (VITAMIN 00:00: mcg total) Med ical B-12) 1,000 00 intramuscu Ce nter mcg/mL larly once injection a week. sod 2017-05 Yes 1{packe QD [address] chlor-bicar 0-12 t} by Nasal [facility] - b-squeez 00:00: route Medical bottle (AYR 00 daily. Center SALINE NASAL RINSE) pkdv Vital Signs Vital Name Observation Time Observation Value Comments Source Systolic (mm Hg) 2019-01-14 13:49:00 Brandt rial Servando Diastolic (mm Hg) 2019-01-14 13:49:00 Mem orial Servando Heart Rate 2019-01-14 13:49:00 [facility] [place] Respitory Rate 2019-01-14 13:49:00 Memori al [place] Height 2019-01-14 13:49:00 162.56 cm [facility] Weight 2019-01-14 13:49:00 [facility] BMI Calculated 2019-01-14 13:49:00 Memori al [place] Systolic (mm Hg) 2018-12-24 15:02:00 Brandt rial [place] Diastolic (mm Hg) 2018-12-24 15:02:00 Mem orial [place] Heart Rate 2018-12-24 15:02:00 [facility] [place] Respitory Rate 2018-12-24 15:02:00 Memori al [place] Height 2018-12-24 15:02:00 162.56 cm [facility] Weight 2018-12-24 15:02:00 [facility] [place] BMI Calculated 2018-12-24 15:02:00 Memori al [place] Height 2018-08-26 13:55:00 162.56 cm [facility] BMI Calculated 2018-08-26 13:55:00 Memori al [place] Weight 2018-08-26 13:55:00 [facility] [place] Respitory Rate 2018-08-26 13:55:00 Memori al [place] Systolic (mm Hg) 2018-08-26 13:55:00 Brandt rial [place] Diastolic (mm Hg) 2018-08-26 13:55:00 Mem orial Servando Heart Rate 2018-08-26 13:55:00 [facility] Weight 2018-06-03 20:29:00 [facility] [place] Height 2018-06-03 20:29:00 162.56 cm [facility] BMI Calculated 2018-06-03 20:29:00 Memori al [place] BMI Calculated 2018-04-08 14:16:00 Memori al [place] Weight 2018-04-08 14:16:00 [facility] [place] Systolic (mm Hg) 2018-04-08 14:16:00 Brandt ch [place] Diastolic (mm Hg) 2018-04-08 14:16:00 Mem mathieu [place] Height 2018-04-08 14:16:00 160.02 cm [facility] [place] Respitory Rate 2018-04-08 14:16:00 Kayla mcgarry [place] Heart Rate 2018-04-08 14:16:00 [facility] [place] Procedures This patient has no known procedures. Plan of Care Planned Activity Planned Date Details Comments Source Future Scheduled 2023-02-[address] [facility]:00 (procedure) [code = [facility] 67669398] Future Scheduled 2020-01-[address] [facility] Test 00:00:00 (#1) [code = [facility] INFLUENZA VACCINE (#1)] Future Scheduled 2019-02-[address] [facility] - [facility] 00:[facility]:00 malignant neoplasm Medical C enter of colon (procedure) [code = 791242754] Future Scheduled 2007 SHINGLES VACCINES ([address] [facility] - Test 00:00:00 of 2) [code = [facility] SHINGLES VACCINES (1 of 2)] Future Scheduled [address] [facility] - Test 00:00:00 malignant neoplasm Medical C enter of cervix (procedure) [code = 585509976] Future Scheduled 1976-02-20 DTAP/TDAP/TD [facility] - Test 00:[facility]:00 VACCINES (1 - Tdap) [facility] [code = DTAP/TDAP/TD VACCINES (1 - Tdap)] Future Scheduled [address] [facility] - Test 00:00:00 SCREENING [code = [facility] HEPATITIS C SCREENING] Future Scheduled [address] [facility] - Test 00:00:00 malignant neoplasm Medical C enter of breast (procedure) [code = 116372903] Encounters Start End Encounter Admission Attending Care Care Encounter Source Date/Time Date/Time Type Type Clinicians Facility Department ID 2020-02-16 2020-02-16 Outpatient STLMLC [facility] [id number] Nazia - Kamala l Outpati ent Clinics 2019-09-03 2019-09-03 Ambulatory nullFlavo MNA [id number] Memoria 19:45:00 19:45:00 Pre-Reg r Neurology 10 jorge [place] Servando 2019-09-03 2019-09-03 Outpatient MHIE MHIE [id number] Memoria 14:45:00 14:45:00 10 jorge [place] 2019-09-03 2019-09-03 Outpatient YAZMIN KendrickMISCHER MISCHER [id number] 14:45:00 14:45:00 Star Papi Kike 2019-03-26 2019-03-26 Ambulatory nullFlavo MNA [id number] Memoria 17:30:00 17:30:00 Pre-Reg r Neurology 07 jorge [place] Servando 2019-03-26 2019-03-26 Outpatient MHIE MHIE [id number] Memoria 11:30:00 11:30:00 Deanna patel Servando 2019-03-26 2019-03-26 Outpatient YAZMIN KendrickMISCHER MISCHER [id number] 11:30:00 11:30:00 Star Deanna Kike 2019-02-25 2019-02-25 Ambulatory nullFlavo MNA [id number] Memoria 14:15:00 14:15:00 Pre-Reg r Neurology 09 jorge Vladislav Al 2019-02-25 2019-02-25 Outpatient MHIE MHIE [id number] Memoria 09:15:00 09:15:00 09 jorge Servando 2019-02-25 2019-02-25 [id number] 09:15:00 09:15:00 Star 09 Kike 2019-01-14 2019-01-15 Outpatient nullFlavo MNA [id number] Memoria 14:00:00 04:59:59 r Neurology 08 jorge [place] Servando 2019-01-14 2019-01-14 Outpatient MIKHAIL KendrickSCHER MISCHER [id number] 09:00:00 23:59:59 Star 08 Kike 2019-01-14 2019-01-14 Outpatient MHIE MHIE [id number] Memoria 09:00:00 09:00:00 08 jorge Servando 2018-12-24 2018-12-25 Outpatient nullFlavo MNA [id number] Memoria 15:15:00 04:59:59 r Neurology 06 jorge Al 2018-12-24 2018-12-24 Outpatient Mireille MHMISCHER MHMISCHER [id number] 10:15:00 23:59:59 Star Gerard Stokes 2018-12-24 2018-12-24 Outpatient MHIE MHIE [id number] Memoria 10:15:00 10:15:00 06 jorge Al 2018-08-26 2018-08-27 Outpatient nullFlavo MNA [id number] Memoria 14:00:00 04:59:59 r Neurology 05 jorge Al 2018-08-26 2018-08-26 Outpatient Mireille MHMISCHER MHMISCHER [id number] 09:00:00 23:59:59 Star Holger Stokes 2018-08-26 2018-08-26 Outpatient MHIE MHIE [id number] Memoria 09:00:00 09:00:00 05 jorge Al 2018-06-03 2018-06-04 Outpatient nullFlavo MNA [id number] Memoria 20:30:00 05:59:59 r Neurology 04 jorge Loomis Servando 2018-06-03 2018-06-03 Outpatient YAZMIN KendrickMISCHER MISCHER [id number] 14:30:00 23:59:59 Star Tim Stokes 2018-06-03 2018-06-03 Outpatient MHIE MHIE [id number] Memoria 14:30:00 14:30:00 Tim Al 2018-05-23 2018-05-25 Phone nullFlavo MNA [id number] Memoria 16:45:00 05:59:59 Message r Neurology 01 jorge [place] Servando 2018-05-23 2018-05-24 Outpatient MHMISCHER MHMISCHER [id number] 10:45:00 23:59:59 2018-05-09 2018-05-09 Ambulatory nullFlavo MNA [id number] Memoria 21:45:00 21:45:00 Pre-Reg r Neurology 02 jorge [place] Servando 2018-05-09 2018-05-09 Outpatient MHIE MHIE [id number] Memoria 15:45:00 15:45:00 02 jorge Al 2018-05-09 2018-05-09 Outpatient Mireille MHMISCHER MHMISCHER [id number] 15:45:00 15:45:00 Star 02 Kike 2018-04-22 2018-04-23 Outpatient nullFlavo MNA [id number] Memoria 20:30:00 05:59:59 r Neurology 03 l Vladislav Al 2018-04-22 2018-04-22 Outpatient Patriciaganesh MHMISCHER MHMISCHER [id number] 14:30:00 23:59:59 Star 03 Kike 2018-04-22 2018-04-22 Outpatient MHIE MHIE [id number] Memoria 14:30:00 14:30:00 03 jorge Al 2018-04-15 2018-04-17 Phone nullFlavo MNA [id number] Memoria 21:03:00 05:59:59 Message r Neurology 00 l Vladislav Al 2018-04-15 2018-04-16 Outpatient MHMISCHER MHMISCHER [id number] 15:03:00 23:59:59 00 2018-04-11 2018-04-12 Outpatient nullFlavo MNA [id number] Memoria 21:00:00 05:59:59 r Neurology 01 l Vladislav Al 2018-04-11 2018-04-11 Outpatient Mireille, MHMISCHER MHMISCHER [id number] 15:00:00 23:59:59 Star 01 Kike 2018-04-11 2018-04-11 Outpatient MHIE MHIE [id number] Memoria 15:00:00 15:00:00 01 jorge Al 2018-04-08 2018-04-09 Outpatient nullFlavo MNA [id number] Memoria 15:45:00 05:59:59 r Neurology 00 l Vladislav Al 2018-04-08 2018-04-08 Outpatient Mireille, MHMISCHER MHMISCHER [id number] 09:45:00 23:59:59 Star 00 Kike 2018-04-08 2018-04-08 Outpatient MHIE MHIE [id number] Memoria 09:45:00 09:45:00 00 jorge [place] Results Test Description Test Time Test Comments Results Result Comments Source CHEM PANEL 2019-01-14 16 [facility] Rachel nn 14:39:00 CHEM PANEL 2019-01-14 0.74 [facility] Rachel nn 14:39:00 CHEM PANEL 2019-01-14 87 [facility] Rachel nn 14:39:00 CHEM PANEL 2019-01-14 101 [facility] Rachel nn 14:39:00 CHEM PANEL 2019-01-14 13 [facility] Rachel nn 14:39:00 CHEM PANEL 2019-01-14 14 [facility] Rachel nn 14:39:00 ELECTROLYTES 2019-01-14 143 Memorial Her handley 14:39:00 ELECTROLYTES 2019-01-14 3.5 Memorial Her handley 14:39:00 ELECTROLYTES 2019-01-14 106 Memorial Her handley 14:39:00 ELECTROLYTES 2019-01-14 29 Memorial Her handley 14:39:00 HEMATOLOGY 2019-01-14 6.0 [facility] Rachel nn 14:39:00 HEMATOLOGY 2019-01-14 4.54 [facility] Rachel nn 14:39:00 HEMATOLOGY 2019-01-14 13.0 [facility] Rachel nn 14:39:00 HEMATOLOGY 2019-01-14 38.8 [facility] Rachel nn 14:39:00 HEMATOLOGY 2019-01-14 85.5 [facility] Rachel nn 14:39:00 HEMATOLOGY 2019-01-14 14:39:00 Test Item Value Reference Range Interpretation Comme nts MCH (test code = MCH) 28.6 pg 27.0-33.0 Memorial [id number] 14:39:0033.5[facility] HermannHEMATOLOGY 2019-01-14 14:39:0013.4[facility] JbiahgdCDHXRSKZLD3057-56-19 14:39:03142Ybwnoysv FpaybybHTRJLPFCVH3671-22-34 14:39:0010.3[facility]orial XqimgzvHQSXZBMBKJ3541-54-68 14:39:200383Yvmqomvm IikagyjFZBENPQWHR0167-53-80 14:39:642896Dpyznvnv Servando UCWCGGFAVZ7670-70-59 14:39:56174Rtfhnrql WteecnaCXDIGFQBGT6602-03-76 14:39:40850 Memorial HhfdlsxSNQLUALIAZ6559-27-98 14:39:0030[facility] HermannHEMATOLOGY 2019-01-14 14:39:0060[facility] CeqbpvvDXMYMXNNAE1084-33-76 14:39:0032.2[facility] LrsiiikSVYXOCURYK5701-63-99 14:39:005.3[facility] HzdriifRXSZNUVLAA0803-62-15 14:39:002.0[facility] YgnnfxxLCQXLOWQEQ1424-69-68 14:39:000.5[facility] HermannAMINO ZZEP3809-96-37 18:41:12941Wtqcupqk HermannANEMIA HCXHT1064-53-37 18:41:49172 [facility] HermannCHEM EPTVZ0410-14-39 18:41:06567Rwfjhxuy HermannHEMATOLOGY 2018-04-08 18:41:0019[facility] KmadmhwEFSLJGQMTV8431-91-69 18:41:00<15[facility] LovsbteCYRVMYUEQS0014-31-21 18:41:00<0.30[facility] HermannCBC W/PLT COUNT & AUTO [id number] 06:12:00 Test Item Value Reference Range Interpretation Comments WHITE BLOOD CELL COUNT (BEAKER) 6.2 K/ L 3.5-10.5 (test code = 775) RED BLOOD CELL COUNT (BEAKER) 3.36 M/ L 3.93-5.22 L (test code = 761) HEMOGLOBIN (BEAKER) (test code = 9.9 GM/DL 11.2-15.7 L 410) HEMATOCRIT (BEAKER) (test code = 30.7 % 34.1-44.9 L 411) MEAN CORPUSCULAR VOLUME (BEAKER) 91.4 fL 79.4-94.8 (test code = 753) MEAN CORPUSCULAR HEMOGLOBIN 29.5 pg 25.6-32.2 (BEAKER) (test code = 751) MEAN CORPUSCULAR HEMOGLOBIN CONC 32.2 GM/DL 32.2-35.5 (BEAKER) (test code = 752) RED CELL DISTRIBUTION WIDTH 13.6 % 11.7-14.4 (BEAKER) (test code = 412) PLATELET COUNT (BEAKER) (test 229 K/CU MM 150-450 code = 756) MEAN PLATELET VOLUME (BEAKER) 9.2 fL 9.4-12.3 L (test code = 754) NUCLEATED RED BLOOD CELLS 0 /100 WBC 0-0 (BEAKER) (test code = 413) NEUTROPHILS RELATIVE PERCENT 51 % (BEAKER) (test code = 429) LYMPHOCYTES RELATIVE PERCENT 40 % (BEAKER) (test code = 430) MONOCYTES RELATIVE PERCENT 5 % (BEAKER) (test code = 431) EOSINOPHILS RELATIVE PERCENT 3 % (BEAKER) (test code = 432) BASOPHILS RELATIVE PERCENT 1 % (BEAKER) (test code = 437) NEUTROPHILS ABSOLUTE COUNT 3.18 K/ L 1.56-6.13 (BEAKER) (test code = 670) LYMPHOCYTES ABSOLUTE COUNT 2.50 K/ L 1.18-3.74 (BEAKER) (test code = 414) MONOCYTES ABSOLUTE COUNT (BEAKER) 0.28 K/ L 0.24-0.36 (test code = 415) EOSINOPHILS ABSOLUTE COUNT 0.20 K/ L 0.04-0.36 (BEAKER) (test code = 416) BASOPHILS ABSOLUTE COUNT (BEAKER) 0.03 K/ L 0.01-0.08 (test code = 417) IMMATURE GRANULOCYTES-RELATIVE 0 % 0-1 PERCENT (BEAKER) (test code = 2801) CBC W/PLT COUNT & AUTO [id number] 05:39:00 Test Item Value Reference Range Interpretation Comments WHITE BLOOD CELL COUNT (BEAKER) 5.8 K/ L 3.5-10.5 (test code = 775) RED BLOOD CELL COUNT (BEAKER) 3.21 M/ L 3.93-5.22 L (test code = 761) HEMOGLOBIN (BEAKER) (test code = 9.4 GM/DL 11.2-15.7 L 410) HEMATOCRIT (BEAKER) (test code = 29.4 % 34.1-44.9 L 411) MEAN CORPUSCULAR VOLUME (BEAKER) 91.6 fL 79.4-94.8 (test code = 753) MEAN CORPUSCULAR HEMOGLOBIN 29.3 pg 25.6-32.2 (BEAKER) (test code = 751) MEAN CORPUSCULAR HEMOGLOBIN CONC 32.0 GM/DL 32.2-35.5 L (BEAKER) (test code = 752) RED CELL DISTRIBUTION WIDTH 13.4 % 11.7-14.4 (BEAKER) (test code = 412) PLATELET COUNT (BEAKER) (test 216 K/CU MM 150-450 code = 756) MEAN PLATELET VOLUME (BEAKER) 9.1 fL 9.4-12.3 L (test code = 754) NUCLEATED RED BLOOD CELLS 0 /100 WBC 0-0 (BEAKER) (test code = 413) NEUTROPHILS RELATIVE PERCENT 51 % (BEAKER) (test code = 429) LYMPHOCYTES RELATIVE PERCENT 40 % (BEAKER) (test code = 430) MONOCYTES RELATIVE PERCENT 5 % (BEAKER) (test code = 431) EOSINOPHILS RELATIVE PERCENT 4 % (BEAKER) (test code = 432) BASOPHILS RELATIVE PERCENT 0 % (BEAKER) (test code = 437) NEUTROPHILS ABSOLUTE COUNT 2.90 K/ L 1.56-6.13 (BEAKER) (test code = 670) LYMPHOCYTES ABSOLUTE COUNT 2.30 K/ L 1.18-3.74 (BEAKER) (test code = 414) MONOCYTES ABSOLUTE COUNT (BEAKER) 0.29 K/ L 0.24-0.36 (test code = 415) EOSINOPHILS ABSOLUTE COUNT 0.20 K/ L 0.04-0.36 (BEAKER) (test code = 416) BASOPHILS ABSOLUTE COUNT (BEAKER) 0.02 K/ L 0.01-0.08 (test code = 417) IMMATURE GRANULOCYTES-RELATIVE 1 % 0-1 PERCENT (BEAKER) (test code = 2801) CBC W/PLT COUNT & AUTO [id number] 06:32:00 Test Item Value Reference Range Interpretation Comments WHITE BLOOD CELL COUNT (BEAKER) 6.5 K/ L 3.5-10.5 (test code = 775) RED BLOOD CELL COUNT (BEAKER) 3.41 M/ L 3.93-5.22 L (test code = 761) HEMOGLOBIN (BEAKER) (test code = 9.9 GM/DL 11.2-15.7 L 410) HEMATOCRIT (BEAKER) (test code = 31.3 % 34.1-44.9 L 411) MEAN CORPUSCULAR VOLUME (BEAKER) 91.8 fL 79.4-94.8 (test code = 753) MEAN CORPUSCULAR HEMOGLOBIN 29.0 pg 25.6-32.2 (BEAKER) (test code = 751) MEAN CORPUSCULAR HEMOGLOBIN CONC 31.6 GM/DL 32.2-35.5 L (BEAKER) (test code = 752) RED CELL DISTRIBUTION WIDTH 13.6 % 11.7-14.4 (BEAKER) (test code = 412) PLATELET COUNT (BEAKER) (test 240 K/CU MM 150-450 code = 756) MEAN PLATELET VOLUME (BEAKER) 9.4 fL 9.4-12.3 (test code = 754) NUCLEATED RED BLOOD CELLS 0 /100 WBC 0-0 (BEAKER) (test code = 413) NEUTROPHILS RELATIVE PERCENT 55 % (BEAKER) (test code = 429) LYMPHOCYTES RELATIVE PERCENT 37 % (BEAKER) (test code = 430) MONOCYTES RELATIVE PERCENT 5 % (BEAKER) (test code = 431) EOSINOPHILS RELATIVE PERCENT 3 % (BEAKER) (test code = 432) BASOPHILS RELATIVE PERCENT 0 % (BEAKER) (test code = 437) NEUTROPHILS ABSOLUTE COUNT 3.52 K/ L 1.56-6.13 (BEAKER) (test code = 670) LYMPHOCYTES ABSOLUTE COUNT 2.38 K/ L 1.18-3.74 (BEAKER) (test code = 414) MONOCYTES ABSOLUTE COUNT (BEAKER) 0.32 K/ L 0.24-0.36 (test code = 415) EOSINOPHILS ABSOLUTE COUNT 0.17 K/ L 0.04-0.36 (BEAKER) (test code = 416) BASOPHILS ABSOLUTE COUNT (BEAKER) 0.02 K/ L 0.01-0.08 (test code = 417) IMMATURE GRANULOCYTES-RELATIVE 1 % 0-1 PERCENT (BEAKER) (test code = 2801) CBC W/PLT COUNT & AUTO [id number] 05:43:00 Test Item Value Reference Range Interpretation Comments WHITE BLOOD CELL COUNT (BEAKER) 7.7 K/ L 3.5-10.5 (test code = 775) RED BLOOD CELL COUNT (BEAKER) 3.14 M/ L 3.93-5.22 L (test code = 761) HEMOGLOBIN (BEAKER) (test code = 9.2 GM/DL 11.2-15.7 L 410) HEMATOCRIT (BEAKER) (test code = 28.3 % 34.1-44.9 L 411) MEAN CORPUSCULAR VOLUME (BEAKER) 90.1 fL 79.4-94.8 (test code = 753) MEAN CORPUSCULAR HEMOGLOBIN 29.3 pg 25.6-32.2 (BEAKER) (test code = 751) MEAN CORPUSCULAR HEMOGLOBIN CONC 32.5 GM/DL 32.2-35.5 (BEAKER) (test code = 752) RED CELL DISTRIBUTION WIDTH 13.5 % 11.7-14.4 (BEAKER) (test code = 412) PLATELET COUNT (BEAKER) (test 220 K/CU MM 150-450 code = 756) MEAN PLATELET VOLUME (BEAKER) 9.2 fL 9.4-12.3 L (test code = 754) NUCLEATED RED BLOOD CELLS 0 /100 WBC 0-0 (BEAKER) (test code = 413) NEUTROPHILS RELATIVE PERCENT 63 % (BEAKER) (test code = 429) LYMPHOCYTES RELATIVE PERCENT 30 % (BEAKER) (test code = 430) MONOCYTES RELATIVE PERCENT 5 % (BEAKER) (test code = 431) EOSINOPHILS RELATIVE PERCENT 2 % (BEAKER) (test code = 432) BASOPHILS RELATIVE PERCENT 0 % (BEAKER) (test code = 437) NEUTROPHILS ABSOLUTE COUNT 4.86 K/ L 1.56-6.13 (BEAKER) (test code = 670) LYMPHOCYTES ABSOLUTE COUNT 2.31 K/ L 1.18-3.74 (BEAKER) (test code = 414) MONOCYTES ABSOLUTE COUNT (BEAKER) 0.37 K/ L 0.24-0.36 H (test code = 415) EOSINOPHILS ABSOLUTE COUNT 0.13 K/ L 0.04-0.36 (BEAKER) (test code = 416) BASOPHILS ABSOLUTE COUNT (BEAKER) 0.03 K/ L 0.01-0.08 (test code = 417) IMMATURE GRANULOCYTES-RELATIVE 1 % 0-1 PERCENT (BEAKER) (test code = 2801) ANTI-NUCLEAR ANTIBODY (YENI)2018 04:06:00 Test Item Value Reference Range Interpretation Comments ANTI-NUCLEAR ANTIBODY (YENI) (BEAKER) Positive Negative A (test code = 418) Test performed by IFA method.YENI TITER AND [id number] 04:06:00 Test Item Value Reference Range Interpretation Comments YENI TITER (BEAKER) (test code = :160 1541) YENI PATTERN (BEAKER) (test code = Homogeneous 1781) BASIC METABOLIC [id number] 16:49:00 Test Item Value Reference Range Interpretation Comments SODIUM (BEAKER) 143 meq/L 136-145 (test code = 381) POTASSIUM (BEAKER) 4.0 meq/L 3.5-5.1 Specimen slightly (test code = 379) hemolyzed CHLORIDE (BEAKER) 108 meq/L 98-107 H (test code = 382) CO2 (BEAKER) (test 28 meq/L 22-29 code = 355) BLOOD UREA NITROGEN 13 mg/dL 7-21 (BEAKER) (test code = 354) CREATININE (BEAKER) 0.76 mg/dL 0.57-1.25 Specimen slightly (test code = 358) hemolyzed GLUCOSE RANDOM 128 mg/dL 70-105 H (BEAKER) (test code = 652) CALCIUM (BEAKER) 9.0 mg/dL 8.4-10.2 (test code = 697) EGFR (BEAKER) (test 78 mL/min/1.73 ESTIMA AICHA GFR IS code = 1092) sq m NOT ACCURATE CREATININE CLEARANCE IN PREDICTING GLOMERULAR FILTRATION RATE . ESTIMATED GFR I S NOT APPLICABLE FOR DIALYSIS PATIEN TS. BASIC METABOLIC [id number] 07:04:00 Test Item Value Reference Range Interpretation Comments SODIUM (BEAKER) 142 meq/L 136-145 (test code = 381) POTASSIUM (BEAKER) 3.4 meq/L 3.5-5.1 L (test code = 379) CHLORIDE (BEAKER) 107 meq/L 98-107 (test code = 382) CO2 (BEAKER) (test 27 meq/L 22-29 code = 355) BLOOD UREA NITROGEN 11 mg/dL 7-21 (BEAKER) (test code = 354) CREATININE (BEAKER) 0.72 mg/dL 0.57-1.25 (test code = 358) GLUCOSE RANDOM 96 mg/dL 70-105 (BEAKER) (test code = 652) CALCIUM (BEAKER) 8.6 mg/dL 8.4-10.2 (test code = 697) EGFR (BEAKER) (test 83 mL/min/1.73 ESTIMA AICHA GFR IS code = 1092) sq m NOT ACCURATE CREATININE CLEARANCE IN PREDICTING GLOMERULAR FILTRATION RATE . ESTIMATED GFR I S NOT APPLICABLE FOR DIALYSIS PATIEN TS. CBC W/PLT COUNT & AUTO [id number] 06:36:00 Test Item Value Reference Range Interpretation Comments WHITE BLOOD CELL COUNT (BEAKER) 5.8 K/ L 3.5-10.5 (test code = 775) RED BLOOD CELL COUNT (BEAKER) 3.13 M/ L 3.93-5.22 L (test code = 761) HEMOGLOBIN (BEAKER) (test code = 9.2 GM/DL 11.2-15.7 L 410) HEMATOCRIT (BEAKER) (test code = 28.2 % 34.1-44.9 L 411) MEAN CORPUSCULAR VOLUME (BEAKER) 90.1 fL 79.4-94.8 (test code = 753) MEAN CORPUSCULAR HEMOGLOBIN 29.4 pg 25.6-32.2 (BEAKER) (test code = 751) MEAN CORPUSCULAR HEMOGLOBIN CONC 32.6 GM/DL 32.2-35.5 (BEAKER) (test code = 752) RED CELL DISTRIBUTION WIDTH 13.1 % 11.7-14.4 (BEAKER) (test code = 412) PLATELET COUNT (BEAKER) (test 222 K/CU MM 150-450 code = 756) MEAN PLATELET VOLUME (BEAKER) 9.5 fL 9.4-12.3 (test code = 754) NUCLEATED RED BLOOD CELLS 0 /100 WBC 0-0 (BEAKER) (test code = 413) NEUTROPHILS RELATIVE PERCENT 55 % (BEAKER) (test code = 429) LYMPHOCYTES RELATIVE PERCENT 37 % (BEAKER) (test code = 430) MONOCYTES RELATIVE PERCENT 6 % (BEAKER) (test code = 431) EOSINOPHILS RELATIVE PERCENT 2 % (BEAKER) (test code = 432) BASOPHILS RELATIVE PERCENT 0 % (BEAKER) (test code = 437) NEUTROPHILS ABSOLUTE COUNT 3.19 K/ L 1.56-6.13 (BEAKER) (test code = 670) LYMPHOCYTES ABSOLUTE COUNT 2.14 K/ L 1.18-3.74 (BEAKER) (test code = 414) MONOCYTES ABSOLUTE COUNT (BEAKER) 0.32 K/ L 0.24-0.36 (test code = 415) EOSINOPHILS ABSOLUTE COUNT 0.11 K/ L 0.04-0.36 (BEAKER) (test code = 416) BASOPHILS ABSOLUTE COUNT (BEAKER) 0.02 K/ L 0.01-0.08 (test code = 417) IMMATURE GRANULOCYTES-RELATIVE 1 % 0-1 PERCENT (BEAKER) (test code = 2801) OCCULT BLOOD, [id number] 05:30:00 Test Item Value Reference Range Interpretation Comments FECAL OCCULT BLOOD (BEAKER) (test Positive Negative A code = 618) [id number] 06:02:00 Test Item Value Reference Range Interpretation Comments PHOSPHORUS (BEAKER) (test code = 3.8 mg/dL 2.3-4.7 604) [id number] 06:02:00 Test Item Value Reference Range Interpretation Comments MAGNESIUM (BEAKER) (test code = 2.0 mg/dL 1.6-2.6 627) BASIC METABOLIC [id number] 06:02:00 Test Item Value Reference Range Interpretation Comments SODIUM (BEAKER) 143 meq/L 136-145 (test code = 381) POTASSIUM (BEAKER) 3.6 meq/L 3.5-5.1 (test code = 379) CHLORIDE (BEAKER) 108 meq/L 98-107 H (test code = 382) CO2 (BEAKER) (test 26 meq/L 22-29 code = 355) BLOOD UREA NITROGEN 13 mg/dL 7-21 (BEAKER) (test code = 354) CREATININE (BEAKER) 0.69 mg/dL 0.57-1.25 (test code = 358) GLUCOSE RANDOM 120 mg/dL 70-105 H (BEAKER) (test code = 652) CALCIUM (BEAKER) 8.9 mg/dL 8.4-10.2 (test code = 697) EGFR (BEAKER) (test 87 mL/min/1.73 ESTIMA AICHA GFR IS code = 1092) sq m NOT ACCURATE CREATININE CLEARANCE IN PREDICTING GLOMERULAR FILTRATION RATE . ESTIMATED GFR I S NOT APPLICABLE FOR DIALYSIS PATIEN TS. CBC W/PLT COUNT & AUTO [id number] 05:39:00 Test Item Value Reference Range Interpretation Comments WHITE BLOOD CELL COUNT (BEAKER) 6.7 K/ L 3.5-10.5 (test code = 775) RED BLOOD CELL COUNT (BEAKER) 3.03 M/ L 3.93-5.22 L (test code = 761) HEMOGLOBIN (BEAKER) (test code = 8.9 GM/DL 11.2-15.7 L 410) HEMATOCRIT (BEAKER) (test code = 27.8 % 34.1-44.9 L 411) MEAN CORPUSCULAR VOLUME (BEAKER) 91.7 fL 79.4-94.8 (test code = 753) MEAN CORPUSCULAR HEMOGLOBIN 29.4 pg 25.6-32.2 (BEAKER) (test code = 751) MEAN CORPUSCULAR HEMOGLOBIN CONC 32.0 GM/DL 32.2-35.5 L (BEAKER) (test code = 752) RED CELL DISTRIBUTION WIDTH 13.1 % 11.7-14.4 (BEAKER) (test code = 412) PLATELET COUNT (BEAKER) (test 190 K/CU MM 150-450 code = 756) MEAN PLATELET VOLUME (BEAKER) 9.5 fL 9.4-12.3 (test code = 754) NUCLEATED RED BLOOD CELLS 0 /100 WBC 0-0 (BEAKER) (test code = 413) NEUTROPHILS RELATIVE PERCENT 58 % (BEAKER) (test code = 429) LYMPHOCYTES RELATIVE PERCENT 34 % (BEAKER) (test code = 430) MONOCYTES RELATIVE PERCENT 5 % (BEAKER) (test code = 431) EOSINOPHILS RELATIVE PERCENT 2 % (BEAKER) (test code = 432) BASOPHILS RELATIVE PERCENT 0 % (BEAKER) (test code = 437) NEUTROPHILS ABSOLUTE COUNT 3.90 K/ L 1.56-6.13 (BEAKER) (test code = 670) LYMPHOCYTES ABSOLUTE COUNT 2.26 K/ L 1.18-3.74 (BEAKER) (test code = 414) MONOCYTES ABSOLUTE COUNT (BEAKER) 0.36 K/ L 0.24-0.36 (test code = 415) EOSINOPHILS ABSOLUTE COUNT 0.12 K/ L 0.04-0.36 (BEAKER) (test code = 416) BASOPHILS ABSOLUTE COUNT (BEAKER) 0.03 K/ L 0.01-0.08 (test code = 417) IMMATURE GRANULOCYTES-RELATIVE 1 % 0-1 PERCENT (BEAKER) (test code = 2801) CT, TEMPORAL BONES, WO [id number] 10:09:00FINAL REPORT CT temporal bones Comparison: None Reason for exam: Left ear pain, otorrhea Discussion: Axial and coronal high resolution CT imaging of the temporal bones was provided evaluated with bone and soft tissue windows. Dose modulation, iterative reconstruction, and/or weight based adjustment of the mA/kV was utilized to reduce the radiation dose to as low as reasonably ac hievable. On both sides, the external auditory canal, tympanic membrane, middle ear cavity, ossicles, mastoid air cells, inner ear structures, and IAC are within normal limits. The visualized orbital contents, remaining bones, and remaining soft tissues are unremarkable. Mucosal thickening and fluid are again noted left sphenoid sinus. Correlate clinically for sphenoid sinusitis. Impressions: 1. Temporal bones themselves are unremarkable. 2. Left-sided sphenoid sinus mucosal thickening and fluid may represent acute sphenoid sinusitis. Signed: Titus Gonzalez MDReport Verified Date/Time: 02/16/2018 10 :09:40 Reading Location: [address] Neuro Reading Room [id number] 07:09:00 Test Item Value Reference Range Interpretation Comments RPR SCREEN (BEAKER) (test code = Nonreactive Nonreactive 420) [id number] 06:11:00 Test Item Value Reference Range Interpretation Comments PHOSPHORUS (BEAKER) (test code = 3.9 mg/dL 2.3-4.7 604) [id number] 06:11:00 Test Item Value Reference Range Interpretation Comments MAGNESIUM (BEAKER) (test code = 2.0 mg/dL 1.6-2.6 627) BASIC METABOLIC [id number] 06:11:00 Test Item Value Reference Range Interpretation Comments SODIUM (BEAKER) 143 meq/L 136-145 (test code = 381) POTASSIUM (BEAKER) 3.2 meq/L 3.5-5.1 L (test code = 379) CHLORIDE (BEAKER) 108 meq/L 98-107 H (test code = 382) CO2 (BEAKER) (test 29 meq/L 22-29 code = 355) BLOOD UREA NITROGEN 15 mg/dL 7-21 (BEAKER) (test code = 354) CREATININE (BEAKER) 0.70 mg/dL 0.57-1.25 (test code = 358) GLUCOSE RANDOM 107 mg/dL 70-105 H (BEAKER) (test code = 652) CALCIUM (BEAKER) 8.6 mg/dL 8.4-10.2 (test code = 697) EGFR (BEAKER) (test 85 mL/min/1.73 ESTIMA AICHA GFR IS code = 1092) sq m NOT ACCURATE CREATININE CLEARANCE IN PREDICTING GLOMERULAR FILTRATION RATE . ESTIMATED GFR I S NOT APPLICABLE FOR DIALYSIS PATIEN TS. CBC W/PLT COUNT & AUTO [id number] 05:50:00 Test Item Value Reference Range Interpretation Comments WHITE BLOOD CELL COUNT (BEAKER) 6.0 K/ L 3.5-10.5 (test code = 775) RED BLOOD CELL COUNT (BEAKER) 3.04 M/ L 3.93-5.22 L (test code = 761) HEMOGLOBIN (BEAKER) (test code = 8.9 GM/DL 11.2-15.7 L 410) HEMATOCRIT (BEAKER) (test code = 27.8 % 34.1-44.9 L 411) MEAN CORPUSCULAR VOLUME (BEAKER) 91.4 fL 79.4-94.8 (test code = 753) MEAN CORPUSCULAR HEMOGLOBIN 29.3 pg 25.6-32.2 (BEAKER) (test code = 751) MEAN CORPUSCULAR HEMOGLOBIN CONC 32.0 GM/DL 32.2-35.5 L (BEAKER) (test code = 752) RED CELL DISTRIBUTION WIDTH 13.2 % 11.7-14.4 (BEAKER) (test code = 412) PLATELET COUNT (BEAKER) (test 188 K/CU MM 150-450 code = 756) MEAN PLATELET VOLUME (BEAKER) 9.6 fL 9.4-12.3 (test code = 754) NUCLEATED RED BLOOD CELLS 0 /100 WBC 0-0 (BEAKER) (test code = 413) NEUTROPHILS RELATIVE PERCENT 52 % (BEAKER) (test code = 429) LYMPHOCYTES RELATIVE PERCENT 41 % (BEAKER) (test code = 430) MONOCYTES RELATIVE PERCENT 5 % (BEAKER) (test code = 431) EOSINOPHILS RELATIVE PERCENT 2 % (BEAKER) (test code = 432) BASOPHILS RELATIVE PERCENT 0 % (BEAKER) (test code = 437) NEUTROPHILS ABSOLUTE COUNT 3.10 K/ L 1.56-6.13 (BEAKER) (test code = 670) LYMPHOCYTES ABSOLUTE COUNT 2.43 K/ L 1.18-3.74 (BEAKER) (test code = 414) MONOCYTES ABSOLUTE COUNT (BEAKER) 0.29 K/ L 0.24-0.36 (test code = 415) EOSINOPHILS ABSOLUTE COUNT 0.11 K/ L 0.04-0.36 (BEAKER) (test code = 416) BASOPHILS ABSOLUTE COUNT (BEAKER) 0.02 K/ L 0.01-0.08 (test code = 417) IMMATURE GRANULOCYTES-RELATIVE 1 % 0-1 PERCENT (BEAKER) (test code = 2801) MR, MRA, BRAIN, WITHOUT [id number] 16:33:00FINAL REPORT MRA head and neck Comparison: None Reason for exam: Stroke Discussion: 2 D and 3-D [id number] MRA of the head and neck was provided with maximal intensity projection 3-D reconstructions of the cervical and intracranial arterial vasculatures. NASCET criteria are utilized when considering stenosis. Normal flow cervical carotid systems and cervical segment vertebral arteries with no stenosis by NASCET criteria. Normal flow intracranial internal carotid arteries and in the carotid terminus branches proximally both sides. Normal vertebrobasilar and proximal posterior cerebral artery flow. There is an apparent subtle downward directed outpouching from the communicator segment of the right-sided carotid siphon with base to apex dimension of approximately 2 to 3 mm. Infundibulum versus tiny aneurysm are the possibilities. Refer to source images 87 through 91. Impressions: Suspected small infundibulum versus aneurysm right carotid siphon but otherwise negative MRA neck and head. Signed: Titus Gonzalezort Verified Date/Time: 02/15/2018 16:33:17 Reading Location: [address] Neuro Reading Room MR, MRA, NECK, WITHOUT IV [id number] 16:33:00FINAL REPORT MRA head and neck Comparison: None Reason for exam: StrokeDiscussion: 2 D and 3-D efsh-sa-[id number] MRA of the head and neck was provided with maximal intensity p rojection 3-D reconstructions of the cervical and intracranial arterial vasculatures. NASCET criteria are utilized when considering stenosis. Normal flow cervical carotid systems and cervical segment vertebral arteries with no stenosis by NASCET criteria. Normal flow intracranial internal carotid arteries and in the carotid terminus branches proximally both sides. Normal vertebrobasilar and proximal posterior cerebral artery flow. There is an apparent subtle downward directed outpouching from the communicator segment of the right-sided carotid siphon with base to apex dimension of approximately 2 to 3 mm. Infundibulum versus tiny aneurysm are the possibilities. Refer to source images 87 through 91. Impressions: Suspected small infundibulum versus aneurysm right carotid siphon but otherwise negative MRA neck and head. Signed: Titus Gonzalez Verified Date/Time: 02/15/2018 16:33:17 Reading Location: [address] Neuro Reading Room MR, BRAIN, WITHOUT [id number] 16:29:00Reason for exam:->rule out strokeFINAL REPORT MRI brain Comparison: None Reason for exam: rule out strokeDizziness, r/o posterior circulation stroke. Discussion: Multiplanar MR imaging the brain was performed using T1, T2, FLAIR, FFE, diffusion, and ADC map imaging. There are no intracranial hematomas, mass effect, hydrocephalus, shift, or extra-axial collections. There are no areas of abnormal diffusion restriction. Flow- voids are seen in the basilar and internal carotid arteries as well as in the large posterior dural sinuses. The pineal, sella, and craniocervical junction regions are unremarkable. The visualized orbital contents, skullbase and surrounding soft tissues are unremarkable. Thereis minimal fluid or mucosal thickening left sphenoid sinus.. Impressions: Unremarkable for age intracranial appearance. Left sphenoid sinus mucosal thickening versus fluid. Signed: Titus Gonzalez Verified Date/Time: 02/15/2018 16:29:08 Reading Location: [address] Neuro Reading Room TSH/FREE T4 IF [id number] 14:41:00 Test Item Value Reference Range Interpretation Comments THYROID STIMULATING HORMONE 2.89 uIU/mL 0.35-4.94 (BEAKER) (test code = 772) VITAMIN B12 AND [id number] 14:41:00 Test Item Value Reference Range Interpretation Comments VITAMIN B12 (BEAKER) (test code = 212 pg/mL 213-816 L 774) FOLATE (BEAKER) (test code = 362) 13.9 ng/mL >=7.0 CBC W/PLT COUNT & AUTO [id number] 13:41:00 Test Item Value Reference Range Interpretation Comments WHITE BLOOD CELL COUNT (BEAKER) 6.9 K/ L 3.5-10.5 (test code = 775) RED BLOOD CELL COUNT (BEAKER) 3.18 M/ L 3.93-5.22 L (test code = 761) HEMOGLOBIN (BEAKER) (test code = 9.4 GM/DL 11.2-15.7 L 410) HEMATOCRIT (BEAKER) (test code = 29.1 % 34.1-44.9 L 411) MEAN CORPUSCULAR VOLUME (BEAKER) 91.5 fL 79.4-94.8 (test code = 753) MEAN CORPUSCULAR HEMOGLOBIN 29.6 pg 25.6-32.2 (BEAKER) (test code = 751) MEAN CORPUSCULAR HEMOGLOBIN CONC 32.3 GM/DL 32.2-35.5 (BEAKER) (test code = 752) RED CELL DISTRIBUTION WIDTH 13.2 % 11.7-14.4 (BEAKER) (test code = 412) PLATELET COUNT (BEAKER) (test 195 K/CU MM 150-450 code = 756) MEAN PLATELET VOLUME (BEAKER) 9.7 fL 9.4-12.3 (test code = 754) NUCLEATED RED BLOOD CELLS 0 /100 WBC 0-0 (BEAKER) (test code = 413) NEUTROPHILS RELATIVE PERCENT 52 % (BEAKER) (test code = 429) LYMPHOCYTES RELATIVE PERCENT 42 % (BEAKER) (test code = 430) MONOCYTES RELATIVE PERCENT 5 % (BEAKER) (test code = 431) EOSINOPHILS RELATIVE PERCENT 1 % (BEAKER) (test code = 432) BASOPHILS RELATIVE PERCENT 0 % (BEAKER) (test code = 437) NEUTROPHILS ABSOLUTE COUNT 3.57 K/ L 1.56-6.13 (BEAKER) (test code = 670) LYMPHOCYTES ABSOLUTE COUNT 2.88 K/ L 1.18-3.74 (BEAKER) (test code = 414) MONOCYTES ABSOLUTE COUNT (BEAKER) 0.37 K/ L 0.24-0.36 H (test code = 415) EOSINOPHILS ABSOLUTE COUNT 0.07 K/ L 0.04-0.36 (BEAKER) (test code = 416) BASOPHILS ABSOLUTE COUNT (BEAKER) 0.02 K/ L 0.01-0.08 (test code = 417) IMMATURE GRANULOCYTES-RELATIVE 0 % 0-1 PERCENT (BEAKER) (test code = 2801) HEMOGLOBIN [id number] 09:36:00 Test Item Value Reference Range Interpretation Comments HEMOGLOBIN A1C (BEAKER) (test code = 5.9 % 4.3-6.1 368) [id number] 06:30:00 Test Item Value Reference Range Interpretation Comments PHOSPHORUS (BEAKER) (test code = 3.2 mg/dL 2.3-4.7 604) [id number] 06:30:00 Test Item Value Reference Range Interpretation Comments MAGNESIUM (BEAKER) (test code = 2.1 mg/dL 1.6-2.6 627) BASIC METABOLIC [id number] 06:30:00 Test Item Value Reference Range Interpretation Comments SODIUM (BEAKER) 142 meq/L 136-145 (test code = 381) POTASSIUM (BEAKER) 3.3 meq/L 3.5-5.1 L (test code = 379) CHLORIDE (BEAKER) 110 meq/L 98-107 H (test code = 382) CO2 (BEAKER) (test 27 meq/L 22-29 code = 355) BLOOD UREA NITROGEN 27 mg/dL 7-21 H (BEAKER) (test code = 354) CREATININE (BEAKER) 0.69 mg/dL 0.57-1.25 (test code = 358) GLUCOSE RANDOM 97 mg/dL 70-105 (BEAKER) (test code = 652) CALCIUM (BEAKER) 8.5 mg/dL 8.4-10.2 (test code = 697) EGFR (BEAKER) (test 87 mL/min/1.73 ESTIMA AICHA GFR IS code = 1092) sq m NOT ACCURATE CREATININE CLEARANCE IN PREDICTING GLOMERULAR FILTRATION RATE . ESTIMATED GFR I S NOT APPLICABLE FOR DIALYSIS PATIEN TS. LIPID [id number] 06:30:00 Test Item Value Reference Range Interpretation Comments TRIGLYCERIDES (BEAKER) (test code = 232 mg/dL 540) CHOLESTEROL (BEAKER) (test code = 159 mg/dL 631) HDL CHOLESTEROL (BEAKER) (test code 36 mg/dL = 976) LDL CHOLESTEROL CALCULATED (BEAKER) 77 mg/dL (test code = 633) Triglyceride Reference Range: Low Risk <150 Borderline 150-199 High Risk 200-499 Very High Risk >=500Cholesterol Reference Range: Low Risk <200 Borderline 200-239 High Risk >240HDL Cholesterol Reference Range: Low Risk >=60 High Risk <40LDL Cholesterol Reference Range: Optimal <100 Near Optimal 100-129 Borderline 130-159 High 160-189 Very High >=190HEPATIC FUNCTION [id number] 06:30:00 Test Item Value Reference Range Interpretation Comments TOTAL PROTEIN (BEAKER) (test code = 5.9 gm/dL 6.0-8.3 L 770) ALBUMIN (BEAKER) (test code = 1145) 3.4 g/dL 3.5-5.0 L BILIRUBIN TOTAL (BEAKER) (test code 0.4 mg/dL 0.2-1.2 = 377) BILIRUBIN DIRECT (BEAKER) (test 0.2 mg/dL 0.1-0.5 code = 706) ALKALINE PHOSPHATASE (BEAKER) (test 78 U/L 40-150 code = 346) AST (SGOT) (BEAKER) (test code = 10 U/L 5-34 353) ALT (SGPT) (BEAKER) (test code = 11 U/L 6-55 347) CREATINE KINASE (CK), TOTAL AND [id number] 06:30:00 Test Item Value Reference Range Interpretation Comments CREATINE KINASE TOTAL (BEAKER) 21 U/L 29-200 L (test code = 380) CREATINE KINASE-MB (BEAKER) (test 0.5 ng/mL 0.0-6.6 code = 750) CREATINE KINASE-MB INDEX (BEAKER) 2.4 % (test code = 395) CK-MB Reference Range:<6.7 Normal6.7-10.0 Borderline>10.0 AbnormalC-REACTIVE [id number] 06:30:00 Test Item Value Reference Range Interpretation Comments C-REACTIVE PROTEIN (BEAKER) (test 0.19 mg/dL 0.00-0.50 code = 676) TSH/FREE T4 IF [id number] 06:17:00 Test Item Value Reference Range Interpretation Comments THYROID STIMULATING HORMONE 1.58 uIU/mL 0.35-4.94 (BEAKER) (test code = 772) TROPONIN [id number] 05:39:00 Test Item Value Reference Range Interpretation Comments TROPONIN I (BEAKER) (test code = 397) < ng/mL 0.00-0.03 Troponin I (TnI) levels must be interpreted in the context of the presenting symptoms and the clinical findings. Elevated TnI levels indicate myocardial damage, but are not specific for ischemic heart disease. Elevated TnI levels are seen in patients with other cardiac conditions (including myocarditis and congestive heart failure), and slight TnI elevations occur in patients with other conditions, including sepsis, renal failure, acidosis, acute neurological disease, and persistent tachyarrhythmia.CBC W/PLT COUNT & AUTO DIFFERENTIAL 2018-02-15 04:46:00 Test Item Value Reference Range Interpretation Comments WHITE BLOOD CELL COUNT (BEAKER) 7.6 K/ L 3.5-10.5 (test code = 775) RED BLOOD CELL COUNT (BEAKER) 3.36 M/ L 3.93-5.22 L (test code = 761) HEMOGLOBIN (BEAKER) (test code = 9.9 GM/DL 11.2-15.7 L 410) HEMATOCRIT (BEAKER) (test code = 30.7 % 34.1-44.9 L 411) MEAN CORPUSCULAR VOLUME (BEAKER) 91.4 fL 79.4-94.8 (test code = 753) MEAN CORPUSCULAR HEMOGLOBIN 29.5 pg 25.6-32.2 (BEAKER) (test code = 751) MEAN CORPUSCULAR HEMOGLOBIN CONC 32.2 GM/DL 32.2-35.5 (BEAKER) (test code = 752) RED CELL DISTRIBUTION WIDTH 13.1 % 11.7-14.4 (BEAKER) (test code = 412) PLATELET COUNT (BEAKER) (test 221 K/CU MM 150-450 code = 756) MEAN PLATELET VOLUME (BEAKER) 9.6 fL 9.4-12.3 (test code = 754) NUCLEATED RED BLOOD CELLS 0 /100 WBC 0-0 (BEAKER) (test code = 413) NEUTROPHILS RELATIVE PERCENT 56 % (BEAKER) (test code = 429) LYMPHOCYTES RELATIVE PERCENT 38 % (BEAKER) (test code = 430) MONOCYTES RELATIVE PERCENT 5 % (BEAKER) (test code = 431) EOSINOPHILS RELATIVE PERCENT 1 % (BEAKER) (test code = 432) BASOPHILS RELATIVE PERCENT 0 % (BEAKER) (test code = 437) NEUTROPHILS ABSOLUTE COUNT 4.24 K/ L 1.56-6.13 (BEAKER) (test code = 670) LYMPHOCYTES ABSOLUTE COUNT 2.88 K/ L 1.18-3.74 (BEAKER) (test code = 414) MONOCYTES ABSOLUTE COUNT (BEAKER) 0.40 K/ L 0.24-0.36 H (test code = 415) EOSINOPHILS ABSOLUTE COUNT 0.07 K/ L 0.04-0.36 (BEAKER) (test code = 416) BASOPHILS ABSOLUTE COUNT (BEAKER) 0.02 K/ L 0.01-0.08 (test code = 417) IMMATURE GRANULOCYTES-RELATIVE 0 % 0-1 PERCENT (BEAKER) (test code = 2801)
[2020-12-22] MEDS ORDERED: ACETAMINOPHEN 500 MG TAB ONE (21:22)
--- NOTE | 2020-12-22 21:41 | RAD REPORT ---
EXAM DESCRIPTION: CT - Head C Spine Cap Wo Con - 12/22/2020 9:22 pm CLINICAL HISTORY: PAIN PAIN, fall, head, neck, chest and abdomen pain COMPARISON: No comparisons TECHNIQUE: Axial [address] head images were obtained. Axial [address] cervical spine images were obtain ed with sagittal and coronal reconstruction images reviewed. Axial 5 mm images of the chest, abdomen and pelvis were obtained without IV contrast. Sagittal and coronal reconstruction of the chest, abdo men and pelvis performed. All CT scans are performed using dose optimization technique as appropriate and may include automated exposure control or mA/KV adjustment according to patient size. FINDINGS: No intracranial hemorrhage, mass or edema. No midline shift or abnormal fluid collection. Mastoid air cells and paranasal sinuses are clear. No skull fracture. CT cervical spine shows normal height and alignment. C4-C7 fusion changes are present. No fracture or acute finding. No disc space narrowing. No suspicious soft tissue finding. Central canal detail is i nherently limited. CT chest shows no pneumothorax, pulmonary contusion or pleural fluid collection. No mediastinal hemat corky and the aorta and pulmonary arteries are unremarkable for non contrast study. No chest will mass or abnormal axillary finding. No displaced rib fracture or other significant bony finding. Bilatera l mastectomy changes are present. CT abdomen and pelvis show no injury to the solid abdominal viscera. Gallbladder is absent. No biliar y tree dilatation. No bowel injury or significant finding. No free air, free fluid or abnormal strand ing. No urinary bladder abnormality. No significant bony finding. IMPRESSION: No significant CT Head finding. No significant CT cervical spine finding. No significant CT Chest finding. No significant CT Abdomen and Pelvis finding.
--- NOTE | 2020-12-22 22:22 | ER ---
Nurse's Notes [facility] Name: Ina Gaffney Age: 65 yrs Sex: Female : 1955 Arrival Date: 12/22/2020 Time: 19:02 Bed Waiting Private MD: Diagnosis: Contusion of unspecified part of head, initial encounter;Strain of muscle, fascia and tendon at neck level;Fall due to bumping against object Presentation: 12/22 20:48 Chief complaint: Patient states: Reports she was outside sweeping porch and fell lp1 backward, hit back of head on concrete, + LOC; reports blurry vision, feeling off balance since fall; family member reports fall previously a month ago; Reports pain to back of head, and buttocks. Care prior to arrival: None. Mechanism of Injury: Fall from standing position. 20:48 Method Of Arrival: Wheelchair lp1 20:48 Acuity: SHE 2 lp1 20:51 Coronavirus screen: Client denies travel out of the [place] in the last 14 days. At this lp1 time, the client does not indicate any symptoms associated with coronavirus-19. Ebola Screen: No symptoms or risks identified at this time. Risk Assessment: Do you want to hurt yourself or someone else? Patient reports no desire to harm self or others. Onset of symptoms was December 22, 2020 at 16:45. 20:54 Initial Sepsis Screen: Does the patient meet any 2 criteria? No. Patient's initial lp1 sepsis screen is negative. Does the patient have a suspected source of infection? No. Patient's initial sepsis screen is negative. 21:00 Trauma event details: Injury occurred in the [facility], Injury occurred: at lp1 home. Injury occurred: December 22, 2020 Injury occurred at: 16:45. Triage Assessment: 20:56 General: Appears in no apparent distress. Behavior is calm, C-collar applied to patient lp1 during triage. Neuro: Level of Consciousness is awake, alert, obeys commands. Cardiovascular: Patient's skin is warm and dry. Respiratory: Respiratory effort is even, unlabored. Derm: Skin is pink, warm \T\ dry. Trauma Activation: Alert Physician: ED Physician; Name: Dr. Lin; Notified At: ; Arrived At: Physician: General Surgeon; Name: ; Notified At: ; Arrived At: Physician: Radiology; Name: Stefani; Notified At: ; Arrived At: Physician: Respiratory; Name: ; Notified At: ; Arrived At: Physician: Lab; Name: Mari; Notified At: ; Arrived At: Historical: - Allergies: 20:51 No Known Allergies; lp1 - Home Meds: 20:51 atorvastatin Oral [Active]; Bupropion Oral [Active]; Omeprazole Oral [Active]; lp1 sertraline Oral [Active]; Zoloft Oral [Active]; - PMHx: 20:51 breast cancer; Depression; Hyperlipidemia; Hypothyroidism; lp1 - PSHx: 20:51 Neck surgery; lp1 - Immunization history:: Adult Immunizations up to date. - Social history:: Smoking status: Patient denies any tobacco usage or history of. - Family history:: not pertinent. Screenin:00 Abuse screen: Denies threats or abuse. Denies injuries from another. Nutritional lp1 screening: No deficits noted. Tuberculosis screening: No symptoms or risk factors identified. Fall Risk None identified. Primary Survey: 21:00 NO uncontrolled hemorrhage observed. A: The patient is alert. Airway: patent, No lp1 supplemental oxygen in use on arrival. Breathing/Chest: Respiratory pattern: regular, Respiratory effort: spontaneous, unlabored, Chest inspection: symmetrical rise and fall of the chest. Circulation: Skin color: pink, Skin temperature: warm, dry. Disability Alert. Exposure/Environment: Obvious injury(ies) are noted at this time: Reports pain to neck, sacrum, back of head. Secondary Survey: 21:00 HEENT: No deficits noted. Gastrointestinal: No deficits noted. : No signs and/or lp1 symptoms were reported regarding the genitourinary system. Musculoskeletal: Circulation, motion, and sensation intact. Assessment: 21:00 General: Appears in no apparent distress. Behavior is calm, cooperative, appropriate lp1 for age. Pain: Complains of pain in back of head, back of neck and buttocks Pain currently is 7 out of 10 on a pain scale. Quality of pain is described as aching. Neuro: Level of Consciousness is awake, alert, obeys commands, Oriented to person, place, time, situation. Cardiovascular: Patient's skin is warm and dry. Respiratory: Respiratory effort is even, unlabored. Derm: Skin is pink, warm \T\ dry. Musculoskeletal: No deficits noted. Vital Signs: 20:54 BP 153 / 83; Pulse 74; Resp 16; Temp 98.4; Pulse Ox 99% on R/A; Weight 76.2 kg (R); lp1 Height 5 ft. 4 in. (162.56 cm); Pain 8/10; 22:07 BP 118 / 67; Pulse 77; Resp 16; Temp 98.8; Pulse Ox 97% on R/A; Pain 8/10; lp1 20:54 Body Mass Index 28.84 (76.20 kg, 162.56 cm) lp1 [place] Coma Score: 22:07 Eye Response: spontaneous(4). Verbal Response: oriented(5). Motor Response: obeys lp1 commands(6). Total: 15. 22:14 Eye Response: spontaneous(4). Verbal Response: oriented(5). Motor Response: obeys cristhian commands(6). Total: 15. 22:18 Eye Response: spontaneous(4). Verbal Response: oriented(5). Motor Response: obeys cristhian commands(6). Total: 15. Trauma Score (Adult): 22:07 Eye Response: spontaneous(1); Verbal Response: oriented(1); Motor Response: obeys lp1 commands(2); Systolic BP: > 89 mm Hg(4); Respiratory Rate: 10 to 29 per min(4); [place] Score: 15; Trauma Score: 12 ED Course: 19:02 Patient arrived in ED. bp1 20:51 Triage completed. lp1 20:53 Arm band placed on. lp1 21:00 Patient has correct armband on for positive identification. lp1 21:00 Patient maintains SpO2 saturation greater than 95% on room air. lp1 21:22 CT Traumagram (Head C Spine CAP wo con) In Process Unspecified. EDMS 22:01 Jamil Lin MD is Attending Physician. cristhian 22:30 No provider procedures requiring assistance completed. Patient did not have IV access lp1 during this emergency room visit. Administered Medications: 20:59 Drug: Tylenol 1000 mg Route: PO; lp1 22:29 Drug: Motrin (ibuprofen) 600 mg Route: PO; lp1 Outcome: 22:21 Discharge ordered by . cristhian 22:30 Patient left the ED. lp1 22:30 Discharged to home via wheelchair, with family. lp1 22:30 Condition: good 22:30 Discharge instructions given to patient, Instructed on discharge instructions, follow up and referral plans. medication usage, Demonstrated understanding of instructions, follow-up care, medications, Prescriptions given X 2. 22:30 Patient's length of stay was not longer than 2 hours. lp1 Signatures: Dispatcher [employer] EDJamil Gallardo MD MD cha Pena, Laura RN RN lp1 Amber Suresh bp1 Corrections: (The following items were deleted from the chart) 20:53 20:48 Chief complaint: Patient states: Reports she was outside sweeping [employer] and fell lp1 backward, hit back of head on concrete, + LOC; reports blurry vision, feeling off balance since fall; family member reports fall previously a month ago lp1 20:57 20:48 Acuity: SHE 3 lp1 lp1
--- NOTE | 2020-12-22 22:22 | EDPHYS ---
Physician Documentation [facility] Name: Ina Gaffney Age: 65 yrs Sex: Female : 1955 Arrival Date: 12/22/2020 Time: 19:02 Bed Waiting Private MD: SAMANTHA Physician Jamil Lin HPI: 12/22 22:14 This 65 yrs old Female presents to ER via Wheelchair with complaints of Head cristhian Injury Without LOC-Adult, Fall Injury, Elbow Injury. 22:14 The patient or guardian reports tenderness. The complaints affect the left side of the cristhian back of head, left occipital area, left base of the skull, right side of the back of head, right occipital area and right base of the skull. Context of injury: The problem was sustained at home. Onset: The symptoms/episode began/occurred just prior to arrival. Associated signs and symptoms: The patient has no apparent associated signs or symptoms. Severity of symptoms: At their worst the symptoms were mild, in the emergency department the symptoms are unchanged. The patient has not experienced similar symptoms in the past. Historical: - Allergies: 20:51 No Known Allergies; lp1 - Home Meds: 20:51 atorvastatin Oral [Active]; Bupropion Oral [Active]; Omeprazole Oral [Active]; lp1 sertraline Oral [Active]; Zoloft Oral [Active]; - PMHx: 20:51 breast cancer; Depression; Hyperlipidemia; Hypothyroidism; lp1 - PSHx: 20:51 Neck surgery; lp1 - Immunization history:: Adult Immunizations up to date. - Social history:: Smoking status: Patient denies any tobacco usage or history of. - Family history:: not pertinent. ROS: 22:14 Constitutional: Negative for fever, chills, and weight loss, Eyes: Negative for injury, cristhian pain, redness, and discharge, ENT: Negative for injury, pain, and discharge, Neck: Negative for injury, pain, and swelling, Cardiovascular: Negative for chest pain, palpitations, and edema, Respiratory: Negative for shortness of breath, cough, wheezing, and pleuritic chest pain, Abdomen/GI: Negative for abdominal pain, nausea, vomiting, diarrhea, and constipation, Back: Negative for injury and pain, : Negative for injury, bleeding, discharge, and swelling, MS/Extremity: Negative for injury and deformity, Skin: Negative for injury, rash, and discoloration, Psych: Negative for depression, anxiety, suicide ideation, homicidal ideation, and hallucinations, Allergy/Immunology: Negative for hives, rash, and allergies, Endocrine: Negative for neck swelling, polydipsia, polyuria, polyphagia, and marked weight changes, Hematologic/Lymphatic: Negative for swollen nodes, abnormal bleeding, and unusual bruising. 22:14 Neuro: Positive for headache. Exam: 22:14 Constitutional: This is a well developed, well nourished patient who is awake, alert, cristhian and in no acute distress. Eyes: Pupils equal round and reactive to light, extra-ocular motions intact. Lids and lashes normal. Conjunctiva and sclera are non-icteric and not injected. Cornea within normal limits. Periorbital areas with no swelling, redness, or edema. ENT: Nares patent. No nasal discharge, no septal abnormalities noted. Tympanic membranes are normal and external auditory canals are clear. Oropharynx with no redness, swelling, or masses, exudates, or evidence of obstruction, uvula midline. Mucous membranes moist. Neck: Trachea midline, no thyromegaly or masses palpated, and no cervical lymphadenopathy. Supple, full range of motion without nuchal rigidity, or vertebral point tenderness. No Meningismus. Chest/axilla: Normal chest wall appearance and motion. Nontender with no deformity. No lesions are appreciated. Cardiovascular: Regular rate and rhythm with a normal S1 and S2. No gallops, murmurs, or rubs. Normal PMI, no JVD. No pulse deficits. Respiratory: Lungs have equal breath sounds bilaterally, clear to auscultation and percussion. No rales, rhonchi or wheezes noted. No increased work of breathing, no retractions or nasal flaring. Abdomen/GI: Soft, non-tender, with normal bowel sounds. No distension or tympany. No guarding or rebound. No evidence of tenderness throughout. Back: No spinal tenderness. No costovertebral tenderness. Full range of motion. Skin: Warm, dry with normal turgor. Normal color with no rashes, no lesions, and no evidence of cellulitis. MS/ Extremity: Pulses equal, no cyanosis. Neurovascular intact. Full, normal range of motion. Neuro: Awake and alert, GCS 15, oriented to person, place, time, and situation. Cranial nerves II-XII grossly intact. Motor strength 5/5 in all extremities. Sensory grossly intact. Cerebellar exam normal. Normal gait. Psych: Awake, alert, with orientation to person, place and time. Behavior, mood, and affect are within normal limits. 22:14 Head/face: Noted is contusion, that is superficial, of the left side of the back of head, left occipital area, left base of the skull, right side of the back of head, right occipital area and right base of the skull, tenderness. Vital Signs: 20:54 BP 153 / 83; Pulse 74; Resp 16; Temp 98.4; Pulse Ox 99% on R/A; Weight 76.2 kg (R); lp1 Height 5 ft. 4 in. (162.56 cm); Pain 8/10; 22:07 BP 118 / 67; Pulse 77; Resp 16; Temp 98.8; Pulse Ox 97% on R/A; Pain 8/10; lp1 20:54 Body Mass Index 28.84 (76.20 kg, 162.56 cm) lp1 [place] Coma Score: 22:07 Eye Response: spontaneous(4). Verbal Response: oriented(5). Motor Response: obeys lp1 commands(6). Total: 15. 22:14 Eye Response: spontaneous(4). Verbal Response: oriented(5). Motor Response: obeys cristhian commands(6). Total: 15. 22:18 Eye Response: spontaneous(4). Verbal Response: oriented(5). Motor Response: obeys cristhian commands(6). Total: 15. Trauma Score (Adult): 22:07 Eye Response: spontaneous(1); Verbal Response: oriented(1); Motor Response: obeys lp1 commands(2); Systolic BP: > 89 mm Hg(4); Respiratory Rate: 10 to 29 per min(4); [place] Score: 15; Trauma Score: 12 MDM: 22:18 Differential diagnosis: Contusion of Hematoma on Laceration of Intracranial bleed-. cristhian Data reviewed: vital signs, nurses notes. Data interpreted: quality assurance monitor body: rate is 77 beats/min, rhythm is regular, Pulse oximetry: on room air is 77 %. Counseling: I had a detailed discussion with the patient and/or guardian regarding: the historical points, exam findings, and any diagnostic results supporting the discharge/admit diagnosis, lab results, radiology results, the need for outpatient follow up, for definitive care, a family practitioner. 22:21 Patient medically screened. [facility] 12/22 20:53 Order name: CT Traumagram (Head C Spine CAP wo con); Complete Time: 22:01 lp1 Administered Medications: 20:59 Drug: Tylenol 1000 mg Route: PO; lp1 22:29 Drug: Motrin (ibuprofen) 600 mg Route: PO; lp1 Disposition Summary: 12/22/20 22:21 Discharge Ordered Location: Home cristhian Problem: new cristhian Symptoms: have improved cristhian Condition: Stable cristhian Diagnosis - Contusion of unspecified part of head, initial encounter cristhian - Strain of muscle, fascia and tendon at neck level cristhian - Fall due to bumping against object cristhian Followup: cristhian - With: Private Physician - When: 2 - 3 days - Reason: Recheck today's complaints, Continuance of care, Re-evaluation by your physician Discharge Instructions: - Discharge Summary Sheet cristhian - Facial or Scalp Contusion cristhian - Head Injury, Adult cristhian - Head Injury, Adult, [id number] cristhian - Facial or Scalp Contusion, [id number] cristhian Forms: - Medication Reconciliation Form [facility] - Thank You Letter cristhian - Antibiotic Education cristhian - Prescription Opioid Use [facility] Prescriptions: - Ibuprofen 600 mg Oral Tablet - take 1 tablet by ORAL route every 6 hours As needed take with food; 21 tablet; cristhian Refills: 0, Product Selection Permitted - Cyclobenzaprine 5 mg Oral Tablet - take 1 tablet by ORAL route 3 times per day As needed; 15 tablet; Refills: 0, [facility] Product Selection Permitted Signatures: Dispatcher [employer] Jamil Donaldson MD MD cha Pena, Laura, RN RN lp1
[2020-12-22] MEDS ORDERED: IBUPROFEN 400 MG TAB ONE (22:49)
[2020-12-22] MEDS ORDERED: IBUPROFEN 200 MG TAB PO ONE (22:50)
[2020-12-22 23:05] VITALS: BP 118/67; TEMP 98.8; O2SAT 97
== END 2020-12-22 22:30 | disposition home or self-care (01) ==
LOC: ER 18:58
DX: S16.1XXA Strain of muscle, fascia and tendon at neck level, initial encounter (principal); W18.00XA Striking against unspecified object with subsequent fall, initial encounter; F32.9 Major depressive disorder, single episode, unspecified; Z85.3 Personal history of malignant neoplasm of breast
CPT/HCPCS: 70450; 71250; 72125; 99284; G0390

== ENCOUNTER 2022-12-24 19:42 | Emergency (ER) | payer OTHER ==
--- OUTSIDE RECORDS SUMMARY | 2022-12-24 19:49 | XMS REPORT | Continuity of Care Document ---
:1955 Author Organization [facility] t Address [address] [facility] [address] [place] [address] Care Team Providers Name Role Phone Michele Shar Alberto Primary Care Physician Unavailable Elroy Weinberg Attending Clinician Unavailable Star Kendrick Attending Clinician VALERIANO SANDERSON Attending Clinician Unavailable VALERIANO SANDERSON Admitting Clinician Unavailable Payers Payer Name Policy Type Policy Number Effective Date Expiration Date S [facility] eWise [id number] 2022 (MEDICARE 00:00:00 REPLACEMENT HMO) MEDICAID [id number] 2020 Common 00:00:00 [facility] Problems Condition Condition Condition Status Onset Resolution Last Treating Co mments Source Name Details Category Date Date Treatment Clinician Date Diplopia Diplopia Disease Active 2017-[address] [facility] [address] [facility] 00:00: Medical [address] [place] [address] Anemia, Anemia, Disease Active 2017-[address] unspecifie unspecifie 0-09 Sharon kes d type d type 00:00: Medical 00 Center Dizziness Dizziness Disease Active 2017-[address] [facility] Hypothyroi Hypothyroi Disease Active 2017-[address] [facility]m [facility]m [facility] Hyperlipid Hyperlipid Disease Active 2017-[address] emia emia [facility] Depression Depression Disease Active 2017-[address] [facility] Center Anemia Anemia Disease Active 2017-[address] [facility] [facility] Headache Headache Disease Active 2017-05 [facility] Center 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 21:43:33 l (disorder) (disorder) He rmann Active Problem 09/05/2019 [facility] Malignant Malignant Problem Active 2019-09-05 Memoria tumor of tumor of 21:43:33 l breast breast Servando (disorder) (disorder) Active Problem 09/05/2019 [facility] Simple Simple Problem Active 2019-09-05 Brandt filemon obesity obesity 21:43:33 l (disorder) (disorder) He rmann Active Problem 09/05/2019 [facility] Tremor Tremor Problem Active 2019-09-05 Brandt filemon (finding) (finding) 21:43:33 l Active Servando Problem 09/05/2019 [facility] Vertigo Vertigo Problem Active 2019-09-05 Me moria (finding) (finding) 21:43:33 l Active [place] Problem 09/05/2019 [facility] [id number] Moderate Problem Commo n major Spirit depression - [facility] , single [facility] [id number] S/P Problem Common bilateral [facility] mastectomy - [facility] [id number] Mixed Problem Common hyperlipid Spirit emia - [facility] [id number] Hypothyroi Problem Co mmon dism Spirit (acquired) - [facility] [id number] Constipati Problem Com mon on, [facility] [id number] TED Problem Common (generaliz Spirit ed anxiety - [facility] disorder) [facility] [id number] Tobacco Problem Commo n use Spirit disorder - [facility] [id number] History of Problem Co mmon breast Spirit cancer - [facility] Allergies, Adverse Reactions, Alerts Allergy Allergy Status Severity Reaction(s) Onset Inactive Treating Comm ents Source Name Type Date Date Clinician No Known No Known Active Memori a Medicati Medicati l on on Servando michel s Social History Social Habit Start Date Stop Date Quantity Comments Source History of Tobacco Current Smoker Co mmon Spirit - Use [facility] Tobacco use and 2015-09-13 2015-09-13 Never used [facility] Sharon kes exposure 00:00:00 00:00:00 [facility] Alcohol intake 2015-09-13 2015-09-13 [facility]00 of [facility] (finding) Cigarettes smoked 2015-09-08 2015-09-08 [facility] current (pack per 00:00:00 00:00:00 Medical Center day) - Reported Cigarette 2015-09-08 2015-09-[address] [facility] pack-years 00:00:00 00:00:00 [facility] Alcohol Comment 2015-09-08 2015-09-08 twice monthly [facility]00 [facility] Sex Ass[birth year] At [birth year] [facility] 00:00:00 00:00:00 [facility] Smoking Status Start Date Stop Date Source Current Smoker 2022-04-04 00:00:00 Common Spiri t [facility] Social History 2019-01-14 14:04:35 [facility] Medications Ordered Filled Start Stop Current Ordering Indication Dosage Frequency Signature Comments Components Source Medication Medication Date Date Medication? Clinician (SIG) Name Name Andreina Hdz No 40mg Common (Triamcinol (Triamcinol 8-23 S pirit one) one) 00:00: - [facility] Andreina Hdz No 40mg Common (Triamcinol (Triamcinol 8-23 S pirit one) one) 00:00: - [facility] Andreina Hdz No 40mg Common (Triamcinol (Triamcinol 8-23 S pirit one) one) 00:00: - [facility] Kenalog Kenalog 2-0 No 40mg Common (Triamcinol (Triamcinol 8-23 S pirit one) one) 00:00: - [facility] 00 [facility] Augmentin Augmentin 2-0 2022- No 1{table BID Augmentin 875-125 MG 875-125 MG 8- 08-30 t} 875-125 MG 00:00: 00:00 00 :00 Bupivicaine Bupivicaine 2020-1 No 5mg [facility] 00:00: - [facility] 00 [facility] Kenalog Kenalog 2020-1 No 40mg Common (Triamcinol (Triamcinol 0-06 S pirit one) one) 00:00: - [facility] 00 [facility] Bupivicaine Bupivicaine 2020-1 No 5mg [facility] 0-06 [facility] 00:00: - [facility] 00 [facility] Kenalog Kenalog 2020-1 No 40mg Common (Triamcinol (Triamcinol 0-06 S pirit one) one) 00:00: - [facility]I 00 [facility] Bupivicaine Bupivicaine 2020-1 No 5mg [facility] 0-06 [facility] 00:00: - [facility] 00 [facility] Kenalog Kenalog 2020-1 No 40mg Common (Triamcinol (Triamcinol 0-06 S pirit one) one) 00:00: - [facility]I 00 [facility] Bupivicaine Bupivicaine 2020-1 No 5mg Common [facility] 0-06 Spirit 00:00: - [facility] 00 [facility] Kenalog Kenalog 2020-1 No 40mg Common (Triamcinol (Triamcinol 0-06 S pirit one) one) 00:00: - [facility]I 00 [facility] Bupivicaine Bupivicaine 2020-1 No 5mg Common [facility] 0-06 Spirit 00:00: - [facility] 00 [facility] Kenalog Kenalog 2020-1 No 40mg Common (Triamcinol (Triamcinol 0-06 S pirit one) one) 00:00: - [facility]I 00 [facility] Bupivicaine Bupivicaine 2020-1 No 5mg Common [facility] 0-06 Spirit 00:00: - [facility] 00 [facility] Kenalog Kenalog 2020-1 No 40mg Common (Triamcinol (Triamcinol 0-06 S pirit one) one) 00:00: - [facility]I 00 [facility] Bupivicaine Bupivicaine 2020-1 No 5mg Common [facility] 0-06 Spirit 00:00: - [facility] 00 [facility] Kenalog Kenalog 2020-1 No 40mg Common (Triamcinol (Triamcinol 0-06 S pirit one) one) 00:00: - [facility]I 00 [facility] Bupivicaine Bupivicaine 2020-1 No 5mg Common [facility] 0-06 Spirit 00:00: - [facility] 00 [facility] Kenalog Kenalog 2020-1 No 40mg Common (Triamcinol (Triamcinol 0-06 S pirit one) one) 00:00: - [facility] topiramate 2018- Yes 50 mg = 1 Me moria 50 mg oral 0-01 cap, PO, l capsule, 12:50: Daily, # Rachel nn extended 00 30 cap, 3 release Refill(s), Pharmacy: [id number] topiramate 2018-05 Yes 50 mg = 1 Me moria 50 mg oral 0-01 cap, PO, l capsule, 12:50: Daily, # Rachel nn extended 00 30 cap, 3 release Refill(s), Pharmacy: [facility][id number] primidone 2019-0 Yes 50 mg = 1 Mem oria 50 mg oral 9-10 tab, PO, l tablet 14:36: BID, # 180 Rachel nn 37 tab, 3 Refill(s), Pharmacy: [facility][id number] primidone 2019-0 Yes 50 mg = 1 Mem oria 50 mg oral 9-10 tab, PO, l tablet 14:36: BID, # 180 Rachel nn 37 tab, 3 Refill(s), Pharmacy: [facility][id number] primidone 2019-0 Yes 50 mg = 1 Mem oria 50 mg oral 9-04 tab, PO, l tablet 14:12: BID, # 60 René n 00 tab, 3 Refill(s), Pharmacy: [facility] #[id number] primidone 2019-0 Yes 50 mg = 1 Mem oria 50 mg oral 9-04 tab, PO, l tablet 14:12: BID, # 60 René n 00 tab, 3 Refill(s), Pharmacy: [facility] #[id number] 24 HR Yes 50 mg = 1 Memoria topiramate 8-14 cap, PO, l 50 MG 15:55: Daily, # Servando Extended 00 30 cap, 4 Release Refill(s), Capsule Pharmacy: [[facility]] [facility] #[id number] HR 2018- Yes 50 mg = 1 Memoria topiramate 8-14 cap, PO, l 50 MG 15:55: Daily, # [place] Extended 00 30 cap, 4 Release Refill(s), Capsule Pharmacy: [[facility]] [facility] #[id number] HR 2018- Yes 25 mg = 1 Memoria topiramate 4-16 cap, PO, l 25 MG 14:15: Bedtime, # René n Extended 00 30 cap, 3 Release Refill(s), Capsule Pharmacy: [[facility]] [facility] #[id number] HR 2018- Yes 25 mg = 1 Memoria topiramate 4-16 cap, PO, l 25 MG 14:15: Bedtime, # René n Extended 00 30 cap, 3 Release Refill(s), Capsule Pharmacy: [[facility]] [facility] #[id number] topiramate 2019- No 25 mg = 1 Me moria 25 MG Oral 1-11 tab, PO, l Tablet 19:11: Bedtime, # Rachel nn [Topamax] 00 90 tab, 2 Refill(s), Pharmacy: [facility] topiramate 2019- No 25 mg = 1 Me moria 25 MG Oral 1-11 tab, PO, l Tablet 19:11: Bedtime, # Rachel nn [Topamax] 00 90 tab, 2 Refill(s), Pharmacy: [facility] topiramate 2017- No 25 mg = 1 Me moria 25 MG Oral 2-11 tab, PO, l Tablet 18:30: Bedtime, X Rachel nn [Topamax] 00 30 day, # 30 tab, 3 Refill(s), Pharmacy: [facility] topiramate 2017- No 25 mg = 1 Me moria 25 MG Oral 2-11 tab, PO, l Tablet 18:30: Bedtime, X Rachel nn [Topamax] 00 30 day, # 30 tab, 3 Refill(s), Pharmacy: [facility] [id number] Vitamin B12 2017-05 Yes 1,000 Memor ia 1000 mcg/mL 1-27 microgram l injectable 15:43: = 1 mL, Herm alan solution 00 IM, qWeek, # 10 mL, 0 Refill(s) Vitamin B12 2017-05 Yes 1,000 Memor ia 1000 mcg/mL 1-27 microgram l injectable 15:43: = 1 mL, Herm alan solution 00 IM, qWeek, # 10 mL, 0 Refill(s) atorvastati 2017-05 Yes 10 mg = 1 M emoria n 10 mg 1-27 tab, PO, l oral tablet 14:28: Bedtime, # Servando 00 30 tab, 0 Refill(s) levothyroxi 2017-05 Yes 50 Memori a ne 50 mcg 1-27 microgram l (0.05 mg) 14:28: = 1 tab, Herm alan oral tablet 00 PO, Daily, # 30 tab, 0 Refill(s) sertraline 2017-05 Yes 50 mg = 1 Me moria 50 mg oral 1-27 tab, PO, l tablet 14:28: Daily, # Servando 00 30 tab, 0 Refill(s) Aspirin 81 2017-05 Yes 81 mg = 1 Me moria MG Enteric 1-27 tab, PO, l Coated 14:28: Daily, # [place] Tablet 00 90 tab, 3 Refill(s) buPROPion 2017-05 Yes 100 mg = 1 Me moria 100 mg oral 1-27 tab, PO, l tablet 14:28: BID, # 180 Rachel nn 00 tab, 0 Refill(s) omeprazole 2017-05 Yes 10 mg = 1 Me moria 10 mg oral 1-27 cap, PO, l delayed 14:28: Daily, # René n release 00 30 cap, 0 capsule Refill(s) atorvastati 2017-05 Yes 10 mg = 1 M emoria n 10 mg 1-27 tab, PO, l oral tablet 14:28: Bedtime, # [place] 00 30 tab, 0 Refill(s) levothyroxi 2017-05 Yes 50 Memori a ne 50 mcg 1-27 microgram l (0.05 mg) 14:28: = 1 tab, Herm alan oral tablet 00 PO, Daily, # 30 tab, 0 Refill(s) sertraline 2017-05 Yes 50 mg = 1 Me moria 50 mg oral -27 tab, PO, l tablet 14:28: Daily, # Servando 00 30 tab, 0 Refill(s) Aspirin 81 2017-05 Yes 81 mg = 1 Me moria MG Enteric -27 tab, PO, l Coated 14:28: Daily, # Servando Tablet 00 90 tab, 3 Refill(s) buPROPion 2017-05 Yes 100 mg = 1 Me moria 100 mg oral 06-08 tab, PO, l tablet 14:28: BID, # 180 Rachel nn 00 tab, 0 Refill(s) omeprazole 2017-05 Yes 10 mg = 1 Me moria 10 mg oral 06-08 cap, PO, l delayed 14:28: Daily, # René n release 00 30 cap, 0 capsule Refill(s) atorvastati 2017-05 Yes 10mg QD Take [address] [facility] (LIPITOR) 0-13 by mouth Luke s 10 MG 10:56: daily. Medical tablet 59 [place] sertraline 2017-05 Yes 50mg QD Take [address] (ZOLOFT) 50 0-13 by mouth Luke s MG tablet 10:56: daily. Medica l [address] [place] omeprazole 2017-05 Yes heartburn 10mg QD Take [address] (PRILOSEC) 0-13 by mouth [facility]ukes 10 MG 10:56: daily. Medical capsule [address] [place] buPROPion 2017-05 Yes smoking 100mg Q.5D Take [address] (WELLBUTRIN 0-13 cessation mg by Sharon kes ) 100 MG 10:56: mouth 2 Medica l tablet 59 (two) Center times daily. atorvastati 2017-05 Yes 10mg QD Take [address] n (LIPITOR) 0-13 by mouth Luke s 10 MG 10:56: daily. Medical tablet 59 [place] sertraline 2017-05 Yes 50mg QD Take [address] (ZOLOFT) 50 0-13 by mouth Luke s MG tablet 10:56: daily. Medica l [address] [place] omeprazole 2017-05 Yes heartburn 10mg QD Take [address] (PRILOSEC) 0-13 by mouth [facility]ukes 10 MG 10:56: daily. Medical capsule 59 Center buPROPion 2017-05 Yes smoking 100mg Q.5D Take [address] (WELLBUTRIN 0-13 cessation mg by Sharon luna ) 100 MG 10:56: mouth 2 Medica l tablet 59 (two) Center times daily. cyanocobala 2017-05 Yes 1000ug Q7D Inject [address] min 0-13 mL (1,000 [facility] (VITAMIN 00:00: mcg total) Med ical B-12) 1,000 00 intramuscu Ce nter mcg/mL larly once injection a week. cyanocobala 2017-05 Yes 1000ug Q7D Inject [address] min 0-13 mL (1,000 [facility] (VITAMIN 00:00: mcg total) Med ical B-12) 1,000 00 intramuscu Ce nter mcg/mL larly once injection a week. sod 2017-05 Yes 1{packe QD [address] chlor-bicar 0-12 t} by Nasal Luke s b-squeez 00:00: route Medical bottle (AYR 00 daily. Center SALINE NASAL RINSE) pkdv sod 2017-05 Yes 1{packe QD [address] chlor-bicar 0-12 t} by Nasal Luke s b-squeez 00:00: route Medical bottle (AYR 00 daily. Center SALINE NASAL RINSE) pkdv Meloxicam Meloxicam No Meloxicam Atorvastati Atorvastati No 1{table QD Atorvastat n Calcium n Calcium t} in Calcium 10 MG 10 MG 10 MG Buprenorphi Buprenorphi No Buprenorph ne ne ine Levothyroxi Levothyroxi No QD Levothyrox ne Sodium ne Sodium ine Sodium 50 MCG 50 MCG 50 MCG Sertraline Sertraline No 1{table QD Sertraline HCl 100 MG HCl 100 MG t} HCl 100 MG Atorvastati Atorvastati No Atorvastat n Calcium n Calcium in Calcium 10 MG 10 MG 10 MG traMADol traMADol No traMADol HCl HCl HCl buPROPion buPROPion No 1{table QD buPROPion HCl 100 MG HCl 100 MG t} HCl 100 MG Meloxicam Meloxicam No Meloxicam Buprenorphi Buprenorphi No Buprenorph ne ne ine Levothyroxi Levothyroxi No Levothyrox ne Sodium ne Sodium ine Sodium 50 MCG 50 MCG 50 MCG Trokendi XR Trokendi XR No Trokendi XR Sertraline Sertraline No 1{table QD Sertraline HCl 100 MG HCl 100 MG t} HCl 100 MG Levothyroxi Levothyroxi No Levothyrox ne Sodium ne Sodium ine Sodium 50 MCG 50 MCG 50 MCG traMADol traMADol No traMADol HCl HCl HCl buPROPion buPROPion No 1{table QD buPROPion HCl 100 MG HCl 100 MG t} HCl 100 MG Buprenorphi Buprenorphi No Buprenorph ne ne ine Trokendi XR Trokendi XR No Trokendi XR Sertraline Sertraline No 1{table QD Sertraline HCl 100 MG HCl 100 MG t} HCl 100 MG Atorvastati Atorvastati No 1{table QD Atorvastat n Calcium n Calcium t} in Calcium 10 MG 10 MG 10 MG Levothyroxi Levothyroxi No QD Levothyrox ne Sodium ne Sodium ine Sodium 50 MCG 50 MCG 50 MCG Atorvastati Atorvastati No Atorvastat n Calcium n Calcium in Calcium 10 MG 10 MG 10 MG Meloxicam Meloxicam No Meloxicam Atorvastati Atorvastati No 1{table QD Atorvastat n Calcium n Calcium t} in Calcium 10 MG 10 MG 10 MG Levothyroxi Levothyroxi No Levothyrox ne Sodium ne Sodium ine Sodium 50 MCG 50 MCG 50 MCG buPROPion buPROPion No 1{table QD buPROPion HCl 100 MG HCl 100 MG t} HCl 100 MG Buprenorphi Buprenorphi No Buprenorph ne ne ine Trokendi XR Trokendi XR No Trokendi XR traMADol traMADol No traMADol HCl HCl HCl Levothyroxi Levothyroxi No QD Levothyrox ne Sodium ne Sodium ine Sodium 50 MCG 50 MCG 50 MCG Sertraline Sertraline No 1{table QD Sertraline HCl 100 MG HCl 100 MG t} HCl 100 MG Atorvastati Atorvastati No Atorvastat n Calcium n Calcium in Calcium 10 MG 10 MG 10 MG Meloxicam Meloxicam No Meloxicam Atorvastati Atorvastati No 1{table QD Atorvastat n Calcium n Calcium t} in Calcium 10 MG 10 MG 10 MG Trokendi XR Trokendi XR No Trokendi XR Escitalopra Escitalopra No 1{table QD Escitalopr m Oxalate m Oxalate t} am Oxalate 10 MG 10 MG 10 MG traMADol traMADol No traMADol HCl HCl HCl Levothyroxi Levothyroxi No QD Levothyrox ne Sodium ne Sodium ine Sodium 50 MCG 50 MCG 50 MCG Levothyroxi Levothyroxi No Levothyrox ne Sodium ne Sodium ine Sodium 50 MCG 50 MCG 50 MCG Sertraline Sertraline No 1{table QD Sertraline HCl 100 MG HCl 100 MG t} HCl 100 MG Buprenorphi Buprenorphi No Buprenorph ne ne ine buPROPion buPROPion No 1{table QD buPROPion HCl 100 MG HCl 100 MG t} HCl 100 MG Atorvastati Atorvastati No Atorvastat n Calcium n Calcium in Calcium 10 MG 10 MG 10 MG Meloxicam Meloxicam No Meloxicam Atorvastati Atorvastati No 1{table QD Atorvastat n Calcium n Calcium t} in Calcium 10 MG 10 MG 10 MG traMADol traMADol No traMADol HCl HCl HCl Buprenorphi Buprenorphi No Buprenorph ne ne ine Escitalopra Escitalopra No 1{table QD Escitalopr m Oxalate m Oxalate t} am Oxalate 10 MG 10 MG 10 MG Meloxicam Meloxicam No Meloxicam Levothyroxi Levothyroxi No QD Levothyrox ne Sodium ne Sodium ine Sodium 50 MCG 50 MCG 50 MCG Trokendi XR Trokendi XR No Trokendi XR Sertraline Sertraline No 1{table QD Sertraline HCl 100 MG HCl 100 MG t} HCl 100 MG buPROPion buPROPion No 1{table QD buPROPion HCl 100 MG HCl 100 MG t} HCl 100 MG Atorvastati Atorvastati No Atorvastat n Calcium n Calcium in Calcium 10 MG 10 MG 10 MG Levothyroxi Levothyroxi No Levothyrox ne Sodium ne Sodium ine Sodium 50 MCG 50 MCG 50 MCG buPROPion buPROPion No 1{table QD buPROPion HCl 100 MG HCl 100 MG t} HCl 100 MG Escitalopra Escitalopra No 1{table QD Escitalopr m Oxalate m Oxalate t} am Oxalate 10 MG 10 MG 10 MG Levothyroxi Levothyroxi No QD Levothyrox ne Sodium ne Sodium ine Sodium 50 MCG 50 MCG 50 MCG Sertraline Sertraline No 1{table QD Sertraline HCl 100 MG HCl 100 MG t} HCl 100 MG Atorvastati Atorvastati No 1{table QD Atorvastat n Calcium n Calcium t} in Calcium 10 MG 10 MG 10 MG buPROPion buPROPion No 1{table QD buPROPion HCl 100 MG HCl 100 MG t} HCl 100 MG Escitalopra Escitalopra No 1{table QD Escitalopr m Oxalate m Oxalate t} am Oxalate 10 MG 10 MG 10 MG Levothyroxi Levothyroxi No QD Levothyrox ne Sodium ne Sodium ine Sodium 50 MCG 50 MCG 50 MCG Sertraline Sertraline No 1{table QD Sertraline HCl 100 MG HCl 100 MG t} HCl 100 MG Atorvastati Atorvastati No 1{table QD Atorvastat n Calcium n Calcium t} in Calcium 10 MG 10 MG 10 MG Buprenorphi Buprenorphi No Buprenorph ne ne ine Meloxicam Meloxicam No Meloxicam traMADol traMADol No traMADol HCl HCl HCl Sertraline Sertraline No 1{table QD Sertraline HCl 100 MG HCl 100 MG t} HCl 100 MG Trokendi XR Trokendi XR No Trokendi XR buPROPion buPROPion No 1{table QD buPROPion HCl 100 MG HCl 100 MG t} HCl 100 MG Levothyroxi Levothyroxi No QD Levothyrox ne Sodium ne Sodium ine Sodium 50 MCG 50 MCG 50 MCG Atorvastati Atorvastati No 1{table QD Atorvastat n Calcium n Calcium t} in Calcium 10 MG 10 MG 10 MG Buprenorphi Buprenorphi No Buprenorph ne ne ine Meloxicam Meloxicam No Meloxicam traMADol traMADol No traMADol HCl HCl HCl Sertraline Sertraline No 1{table QD Sertraline HCl 100 MG HCl 100 MG t} HCl 100 MG Trokendi XR Trokendi XR No Trokendi XR buPROPion buPROPion No 1{table QD buPROPion HCl 100 MG HCl 100 MG t} HCl 100 MG Levothyroxi Levothyroxi No QD Levothyrox ne Sodium ne Sodium ine Sodium 50 MCG 50 MCG 50 MCG Atorvastati Atorvastati No 1{table QD Atorvastat n Calcium n Calcium t} in Calcium 10 MG 10 MG 10 MG Buprenorphi Buprenorphi No Buprenorph ne ne ine Meloxicam Meloxicam No Meloxicam traMADol traMADol No traMADol HCl HCl HCl Sertraline Sertraline No 1{table QD Sertraline HCl 100 MG HCl 100 MG t} HCl 100 MG Trokendi XR Trokendi XR No Trokendi XR buPROPion buPROPion No 1{table QD buPROPion HCl 100 MG HCl 100 MG t} HCl 100 MG Levothyroxi Levothyroxi No QD Levothyrox ne Sodium ne Sodium ine Sodium 50 MCG 50 MCG 50 MCG Atorvastati Atorvastati No 1{table QD Atorvastat n Calcium n Calcium t} in Calcium 10 MG 10 MG 10 MG Trokendi XR Trokendi XR No Trokendi XR traMADol traMADol No traMADol HCl HCl HCl buPROPion buPROPion No 1{table QD buPROPion HCl 100 MG HCl 100 MG t} HCl 100 MG Vital Signs Vital Name Observation Time Observation Value Comments Source height 2022-04-04 09:30:00 64 [in_i] [facility] weight 2022-04-04 09:30:00 166.8 [lb_av] [facility] temperature 2022-04-04 09:30:00 97.7 [degF] [facility] bmi 2022-04-04 09:30:00 28.63 kg/m2 [facility] oximetry 2022-04-04 09:30:00 97 % [facility] respiratory rate 2022-04-04 09:30:00 18 /min Comm on [facility] blood pressure 2022-04-04 09:30:00 115 mm[Hg] [facility] - systolic [facility] blood pressure 2022-04-04 09:30:00 65 mm[Hg] [facility] - diastolic [facility] height 2022-01-02 08:30:00 64 [in_i] [facility] weight 2022-01-02 08:30:00 165.5 [lb_av] [facility] temperature 2022-01-02 08:30:00 97.4 [degF] Common S pirit [facility] bmi 2022-01-02 08:30:00 28.4 kg/m2 [facility] oximetry 2022-01-02 08:30:00 96 % Common [facility] respiratory rate 2022-01-02 08:30:00 17 /min Comm on [facility] blood pressure 2022-01-02 08:30:00 137 mm[Hg] Common [facility] - systolic [facility] blood pressure 2022-01-02 08:30:00 73 mm[Hg] Common [facility] - diastolic [facility] height 2021-07-26 10:00:00 64 [in_i] Common [facility] weight 2021-07-26 10:00:00 174.5 [lb_av] [facility] temperature 2021-07-26 10:00:00 98.0 [degF] Common [facility] bmi 2021-07-26 10:00:00 29.95 kg/m2 [facility] oximetry 2021-07-26 10:00:00 98 % [facility] respiratory rate 2021-07-26 10:00:00 17 /min Comm on [facility] blood pressure 2021-07-26 10:00:00 132 mm[Hg] Common [facility] - systolic [facility] blood pressure 2021-07-26 10:00:00 63 mm[Hg] Common [facility] - diastolic [facility] height 2021-07-05 13:10:00 64 [in_i] [facility] weight 2021-07-05 13:10:00 176.7 [lb_av] [facility] temperature 2021-07-05 13:10:00 97.9 [degF] [facility] bmi 2021-07-05 13:10:00 30.33 kg/m2 Common [facility] oximetry 2021-07-05 13:10:00 98 % Common [facility] respiratory rate 2021-07-05 13:10:00 17 /min Comm on [facility] blood pressure 2021-07-05 13:10:00 132 mm[Hg] Common [facility] - systolic [facility] blood pressure 2021-07-05 13:10:00 65 mm[Hg] Common [facility] - diastolic [facility] height 2021-04-13 13:30:00 64 [in_i] [facility] weight 2021-04-13 13:30:00 172.4 [lb_av] [facility] temperature 2021-04-13 13:30:00 97.8 [degF] [facility] bmi 2021-04-13 13:30:00 29.59 kg/m2 [facility] oximetry 2021-04-13 13:30:00 98 % [facility] respiratory rate 2021-04-13 13:30:00 16 /min Comm on [facility] blood pressure 2021-04-13 13:30:00 114 mm[Hg] Common [facility] - systolic [facility] blood pressure 2021-04-13 13:30:00 66 mm[Hg] Common [facility] - diastolic [facility] Systolic (mm Hg) 2019-01-14 13:49:00 Brandt Niceann Diastolic (mm Hg) 2019-01-14 13:49:00 [facility] Heart Rate 2019-01-14 13:49:00 [facility] Respitory Rate 2019-01-14 13:49:00 Kayla Pritchett Height 2019-01-14 13:49:00 162.56 cm Chris Al Weight 2019-01-14 13:49:00 Chris Al BMI Calculated 2019-01-14 13:49:00 Kayla Pritchett Systolic (mm Hg) 2018-12-24 15:02:00 Brandt ch [place] Diastolic (mm Hg) 2018-12-24 15:02:00 Mem orial [place] Heart Rate 2018-12-24 15:02:00 [facility] [place] Respitory Rate 2018-12-24 15:02:00 Memori al Servando Height 2018-12-24 15:02:00 162.56 cm [facility] [place] Weight 2018-12-24 15:02:00 [facility] BMI Calculated 2018-12-24 15:02:00 Mem[facility] [place] BMI Calculated 2018-08-26 13:55:00 Memori al [place] Weight 2018-08-26 13:55:00 [facility] Respitory Rate 2018-08-26 13:55:00 [facility] [place] Systolic (mm Hg) 2018-08-26 13:55:00 Brandt rial Servando Diastolic (mm Hg) 2018-08-26 13:55:00 Mem [facility] [place] Heart Rate 2018-08-26 13:55:00 [facility] [place] Height 2018-08-26 13:55:00 162.56 cm [facility] [place] Weight 2018-06-03 20:29:00 [facility] [place] Height 2018-06-03 20:29:00 162.56 cm [facility] [place] BMI Calculated 2018-06-03 20:29:00 Memori al Servando Systolic (mm Hg) 2018-04-08 14:16:00 Brandt rial [place] Diastolic (mm Hg) 2018-04-08 14:16:00 [facility] [place] Height 2018-04-08 14:16:00 160.02 cm [facility] [place] Respitory Rate 2018-04-08 14:16:00 [facility] [place] Heart Rate 2018-04-08 14:16:00 [facility] BMI Calculated 2018-04-08 14:16:00 [facility] [place] Weight 2018-04-08 14:16:00 [facility] [place] Procedures This patient has no known procedures. Plan of Care Planned Activity Planned Date Details Comments Source Future Scheduled 2023-02-15 Lipid panel (procedure) [facility] Test 00:00:00 [code = 86290892] Medical Ce nter Future Scheduled 2023-01-11 Influenza Vaccine (#1) [facility] 00:00:00 [code = Influenza Medical Ce nter Vaccine (#1)] Future Scheduled 2022-05-[address] [facility] Test 00:00:00 (12+) [code = [facility] DEPRESSION SCREENING (12+)] Future Scheduled 2022-05-13 FALLS RISK SCREENING [facility] Test 00:00:00 [code = FALLS RISK Medical C enter SCREENING] Future Scheduled 2022 PNEUMOCOCCAL 65+ YRS ([address] [facility] Test 00:00:00 - PCV) [code = Medical Cente r PNEUMOCOCCAL 65+ YRS (1 - PCV)] Future Scheduled 2020-11-28 COVID-19 VACCINE (3 - [facility] 00:[facility]:00 Booster for Pfizer Medical C enter series) [code = COVID-19 VACCINE (3 - Booster for Pfizer series)] Future Scheduled 2020-01-12 INFLUENZA VACCINE (#1) [facility] 00:00:00 [code = INFLUENZA Medical Ce nter VACCINE (#1)] Future Scheduled 2019-02-17 Screening for malignant [facility] Test 00:00:00 neoplasm of colon Medical Ce nter (procedure) [code = 532828116] Future Scheduled 2019-02-17 Screening for malignant [facility] Test 00:00:00 neoplasm of colon Medical Ce nter (procedure) [code = 790557468] Future Scheduled 2019-02-17 Screening for malignant [facility] Test 00:00:00 neoplasm of colon Medical Ce nter (procedure) [code = 798499807] Future Scheduled 2007 SHINGLES VACCINES ([address] [facility] 00:00:00 [facility] Future Scheduled 2007 SHINGLES VACCINES ([address] [facility] Test 00:00:00 2) [code = SHINGLES [facility] VACCINES (1 of 2)] Future Scheduled 1978 Screening for malignant [facility] Test 00:00:00 neoplasm of cervix Medical C enter (procedure) [code = 546212582] Future Scheduled 1978 Screening for malignant [facility] Test 00:00:00 neoplasm of cervix Medical C enter (procedure) [code = 257464619] Future Scheduled 1976-02-20 DTAP/TDAP/TD VACCINES [facility] 00:00:00 (1 - Tdap) [code = Medical C enter DTAP/TDAP/TD VACCINES (1 - Tdap)] Future Scheduled 1976-02-20 DTAP/TDAP/TD VACCINES [facility] 00:00:00 (1 - Tdap) [code = Medical C enter DTAP/TDAP/TD VACCINES (1 - Tdap)] Future Scheduled 1975 HEPATITIS C SCREENING [facility] 00:00:00 [code = HEPATITIS C [facility] SCREENING] Future Scheduled [address] [facility] Test 00:00:00 Counseling and Medical Cente r Screening (12+) [code = Tobacco Cessation Counseling and Screening (12+)] Future Scheduled 1957 Screening for malignant [facility] Test 00:00:00 neoplasm of breast Medical C enter (procedure) [code = 140364157] Future Scheduled 1957 Screening for malignant [facility] Test 00:00:00 neoplasm of breast Medical C enter (procedure) [code = 779950477] Future Scheduled 1957 CT Colonography (combo) [facility] Test 00:00:00 [code = CT Colonography [facility] (combo)] Future Scheduled 1957 Screening for malignant [facility] Test 00:00:00 neoplasm of colon Medical Ce nter (procedure) [code = 195132723] Future Scheduled 1957 DXA SCAN [code = DXA [facility] Test 00:00:00 SCAN] [facility] Future Scheduled 1957 Screening for malignant [facility] Test 00:00:00 neoplasm of colon Medical Ce nter (procedure) [code = 212049249] Future Scheduled 1957 Sigmoidoscopy [code = [facility] 00:[facility]:00 Sigmoidoscopy] Medical Cente r Encounters Start End Encounter Admission Attending Care Care Encounter Source Date/Time Date/Time Type Type Clinicians Facility Department ID 2022-10-29 [facility] [id number] Common 10:47:01 [place] [address] [facility] 2022-09-04 [facility] [id number] Common 09:47:00 [place] [address] [facility] 2022-08-27 Outpatient Weinberg [facility] [id number] Common 13:10:00 [place] [address] [facility] 2022-08-13 Outpatient Weinberg, STLMLC STLMLC [id number] Common 13:36:00 [place] [address] [facility] 2022-07-06 Outpatient Weinberg, STLMLC STLMLC [id number] Common 08:38:00 [place] [address] [facility] 2022-04-03 Outpatient Weinberg, STLMLC STLMLC [id number] Common 07:57:00 [place] [facility] 2022-03-07 Outpatient Weinberg, STLMLC STLMLC [id number] Common 13:20:01 [place] [facility] 2022-02-21 Outpatient Weinberg, STLMLC STLMLC [id number] Common 10:52:01 [place] [facility] 2022-01-03 Outpatient Weinberg, STLMLC STLMLC [id number] Common 10:33:01 [place] [address] [facility] 2022-01-02 Outpatient Weinberg, STLMLC STLMLC [id number] Common 08:46:02 [place] [facility] 2021-08-30 Outpatient Weinberg, STLMLC STLMLC [id number] Common 16:03:02 [place] [facility] 2021-07-05 Outpatient Weinberg, STLMLC STLMLC [id number] Common 13:15:01 [place] [facility] 2021-06-07 Outpatient Weinberg, STLMLC STLMLC [id number] Common 14:19:53 [place] [facility] 2021-06-07 Outpatient STLMLC STLMLC [id number] Common 14:04:01 [address]0769 [facility] 2021-06-07 Outpatient STLMLC STLMLC [id number] Common 13:49:12 40206 [facility] 2021-06-07 Outpatient STLMLC STLMLC [id number] Common 12:48:24 21074 [facility] 2021-06-07 Outpatient STLMLC STLMLC [id number] Common 12:46:55 14436 [facility] 2021-06-07 Outpatient STLMLC STLMLC [id number] Common 11:52:30 97446 [facility] 2022-09-15 2022-09-15 Outpatient DMG DM [id number] [facility] 00:00:00 00:00:00 [id number] [facility] 2022-04-04 2022-04-04 OFFICE STLMLC STLMLC [id number] Co mmon 00:00:00 00:00:00 VISIT [facility] PT - CHI LEVEL [address] [place] [address] 2022-04-04 2022-04-04 (TEL) STLMLC STLMLC [id number] Co mmon 00:00:00 00:00:00 [facility] 2022-03-14 2022-03-14 (TEL) STLMLC STLMLC [id number] Co mmon 00:00:00 00:00:00 [facility] 2022-01-19 2022-01-19 Outpatient DMG [facility] [id number] [facility] 00:00:00 00:00:00 [id number] Medica l Group 2022-01-02 2022-01-02 OFFICE STLMLC STLMLC [id number] Co mmon 00:00:00 00:00:00 VISIT [facility] PT - CHI LEVEL [address] [place] [address] 2021-10-17 2021-10-17 (TEL) STLMLC STLMLC [id number] Co mmon 00:00:00 00:00:00 [facility] 2021-07-26 2021-07-26 OFFICE STLMLC STLMLC [id number] Co mmon 00:00:00 00:00:00 VISIT [facility] PT - CHI LEVEL [address] [place] [address] 2021-07-10 2021-07-10 (TEL) STLMLC STLMLC [id number] Co mmon 00:00:00 00:00:00 [facility] 2021-07-05 2021-07-05 PREV VISIT STLMLC STLMLC [id number] Common 00:00:00 00:00:00 EST AGE [facility] 40-64 [facility] 2021-05-10 2021-05-10 (TEL) STLMLC STLMLC [id number] Co mmon 00:00:00 00:00:00 [facility] 2021-04-19 2021-04-19 (TEL) STLMLC STLMLC [id number] Co mmon 00:00:00 00:00:00 [facility] 2021-04-13 2021-04-13 OFFICE STLMLC STLMLC [id number] Co mmon 00:00:00 00:00:00 VISIT NEW Spir it PT LEVEL 4 [facility] 2020-02-16 2020-02-16 Outpatient STLMLC STLMLC [id number] Common 00:00:00 00:00:00 [facility] 2019-09-03 2019-09-03 Ambulatory nullFlavo MNA [id number] Memoria 19:45:00 19:45:00 Pre-Reg r Neurology 10 l [facility] 2019-09-03 2019-09-03 Ambulatory nullFlavo MNA [id number] Memoria 19:45:00 19:45:00 Pre-Reg r Neurology 10 l [facility] 2019-09-03 2019-09-03 Outpatient MHIE MHIE [id number] Memoria 14:45:00 14:45:00 10 j[place] 2019-09-03 2019-09-03 [facility] [id number] 14:45:00 14:45:00 Star Stokes 2019-03-26 2019-03-26 Ambulatory nullFlavo MNA [id number] Memoria 17:30:00 17:30:00 Pre-Reg r Neurology 07 jorge Vladislav Al 2019-03-26 2019-03-26 Ambulatory nullFlavo MNA [id number] Memoria 17:30:00 17:30:00 Pre-Reg r Neurology 07 jorge Vladislav Al 2019-03-26 2019-03-26 Outpatient MHIE MHIE [id number] Memoria 11:30:00 11:30:00 Deanna Al 2019-03-26 2019-03-26 [id number] 11:30:00 11:30:00 Star 07 Kike 2019-02-25 2019-02-25 Ambulatory nullFlavo MNA [id number] Memoria 14:15:00 14:15:00 Pre-Reg r Neurology 09 jorge Al 2019-02-25 2019-02-25 Ambulatory nullFlavo MNA [id number] Memoria 14:15:00 14:15:00 Pre-Reg r Neurology 09 jorge Al 2019-02-25 2019-02-25 Outpatient MHIE MHIE [id number] Memoria 09:15:00 09:15:00 09 jorge [place] 2019-02-25 2019-02-25 [facility] [id number] 09:15:00 09:15:00 Star Annamaria Stokes 2019-01-14 2019-01-15 Outpatient nullFlavo MNA [id number] Memoria 14:00:00 04:59:59 r Neurology 08 jorge Al 2019-01-14 2019-01-15 Outpatient nullFlavo MNA [id number] Memoria 14:00:00 04:59:59 r Neurology 08 jorge Al 2019-01-14 2019-01-14 [facility] [id number] 09:00:00 23:59:59 Star Madison Stokes 2019-01-14 2019-01-14 Outpatient MHIE MHIE [id number] Memoria 09:00:00 09:00:00 08 jorge Al 2018-12-24 2018-12-25 Outpatient nullFlavo MNA [id number] Memoria 15:15:00 04:59:59 r Neurology 06 jorge Loomis Servando 2018-12-24 2018-12-25 Outpatient nullFlavo MNA [id number] Memoria 15:15:00 04:59:59 r Neurology 06 jorge Loomis Servando 2018-12-24 2018-12-24 Outpatient YAZMIN KendrickNESCHER MISCHER [id number] 10:15:00 23:59:59 Star Gerard Stokes 2018-12-24 2018-12-24 Outpatient MHIE MHIE [id number] Memoria 10:15:00 10:15:00 06 jorge Al 2018-08-26 2018-08-27 Outpatient nullFlavo MNA [id number] Memoria 14:00:00 04:59:59 r Neurology 05 jorge Al 2018-08-26 2018-08-27 Outpatient nullFlavo MNA [id number] Memoria 14:00:00 04:59:59 r Neurology 05 jorge Al 2018-08-26 2018-08-26 [facility] [id number] 09:00:00 23:59:59 Star 05 Kike 2018-08-26 2018-08-26 Outpatient MHIE MHIE [id number] Memoria 09:00:00 09:00:00 05 jorge Al 2018-06-03 2018-06-04 Outpatient nullFlavo MNA [id number] Memoria 20:30:00 05:59:59 r Neurology 04 jorge Al 2018-06-03 2018-06-04 Outpatient nullFlavo MNA [id number] Memoria 20:30:00 05:59:59 r Neurology 04 jorge Al 2018-06-03 2018-06-03 [facility] [id number] 14:30:00 23:59:59 Star Tim Stokes 2018-06-03 2018-06-03 Outpatient MHIE MHIE [id number] Memoria 14:30:00 14:30:00 04 jorge Al 2018-05-23 2018-05-25 Phone nullFlavo MNA [id number] Memoria 16:45:00 05:59:59 Message r Neurology 01 jorge Al 2018-05-23 2018-05-25 Phone nullFlavo MNA [id number] Memoria 16:45:00 05:59:59 Message r Neurology 01 jorge Al 2018-05-23 2018-05-24 Outpatient MHMISCHER MHMISCHER [id number] 10:45:00 23:59:59 2018-05-09 2018-05-09 Ambulatory nullFlavo MNA [id number] Memoria 21:45:00 21:45:00 Pre-Reg r Neurology 02 jorge Vladislav Al 2018-05-09 2018-05-09 Ambulatory nullFlavo MNA [id number] Memoria 21:45:00 21:45:00 Pre-Reg r Neurology 02 jorge Al 2018-05-09 2018-05-09 Outpatient MHIE MHIE [id number] Memoria 15:45:00 15:45:00 02 jorge Al 2018-05-09 2018-05-09 [facility] [id number] 15:45:00 15:45:00 Star 02 Kike 2018-04-22 2018-04-23 Outpatient nullFlavo MNA [id number] Memoria 20:30:00 05:59:59 r Neurology 03 jorge Al 2018-04-22 2018-04-23 Outpatient nullFlavo MNA [id number] Memoria 20:30:00 05:59:59 r Neurology 03 jorge Al 2018-04-22 2018-04-22 [id number] 14:30:00 23:59:59 Star 03 Kike 2018-04-22 2018-04-22 Outpatient MHIE MHIE [id number] Memoria 14:30:00 14:30:00 03 jorge Al 2018-04-15 2018-04-17 Phone nullFlavo MNA [id number] Memoria 21:03:00 05:59:59 Message r Neurology 00 l Vladislav Al 2018-04-15 2018-04-17 Phone nullFlavo MNA [id number] Memoria 21:03:00 05:59:59 Message r Neurology 00 l Vladislav Al 2018-04-15 2018-04-16 Outpatient MHMISCHER MHMISCHER [id number] 15:03:00 23:59:59 00 2018-04-11 2018-04-12 Outpatient nullFlavo MNA [id number] Memoria 21:00:00 05:59:59 r Neurology 01 jorge Al 2018-04-11 2018-04-12 Outpatient nullFlavo MNA [id number] Memoria 21:00:00 05:59:59 r Neurology 01 l Vladislav Niceann 2018-04-11 2018-04-11 [facility] [id number] 15:00:00 23:59:59 Star 01 Kike 2018-04-11 2018-04-11 Outpatient WOODY MCKAY [id number] Memoria 15:00:00 15:00:00 01 l Servando 2018-04-08 2018-04-09 Outpatient nullFlavo MNA [id number] Memoria 15:45:00 05:59:59 r Neurology 00 l Vladislav Al 2018-04-08 2018-04-09 Outpatient nullFlavo MNA [id number] Memoria 15:45:00 05:59:59 r Neurology 00 l Vladislav Al 2018-04-08 2018-04-08 Outpatient BRENDA [id number] 09:45:00 23:59:59 Star 00 Kike 2018-04-08 2018-04-08 Outpatient WOODY MCKAY [id number] Memoria 09:45:00 09:45:00 00 jorge [place] Results Test Description Test Time Test Comments Results Result Comments Source CHEM PANEL 2019-01-14 14:39:00 Test Item Value Reference Range Interpretation Comme nts BUN (test code = BUN) 16 12-04 [facility] [id number] 14:39:00 Test Item Value Reference Range Interpretation Comments Creatinine Lvl (test code = Creatinine 0.74 0.50-0.99 Lvl) [facility] [id number] 14:39:00 Test Item Value Reference Range Interpretation Comments eGFR NON-AFR. ECUADOREAN (test code = 87 eGFR NON-AFR. ECUADOREAN) [facility] [id number] 14:39:00 Test Item Value Reference Range Interpretation Comments eGFR (test code = eGFR 101 ) [facility] [id number] 14:39:00 Test Item Value Reference Range Interpretation Comments B/C Ratio (test code = B/C NOT APPLICABLE 6-22 Ratio) [facility] [id number] 14:39:00 Test Item Value Reference Range Interpretation Comments ALANINE AMINOTRANSFERASE (test code = 13 6-29 ALANINE AMINOTRANSFERASE) [facility] [id number] 14:39:00 Test Item Value Reference Range Interpretation Comments ASPARTATE TRANSAMINASE (test code = 14 10-35 ASPARTATE TRANSAMINASE) [facility] SrvdysaLDCFLPXZJOCK5936-18-98 14:39:00 Test Item Value Reference Range Interpretation Comments Sodium Lvl (test code = Sodium Lvl) 143 135-[address] [facility]CzggncgXBGZNBVFMCDV7014-94-45 14:39:00 Test Item Value Reference Range Interpretation Comments Potassium Lvl (test code = Potassium 3.5 3.5-5.3 Lvl) [facility] HospitalBwcwldwLKCRFVTEQRJM8137-52-32 14:39:00 Test Item Value Reference Range Interpretation Comments Chloride Lvl (test code = Chloride Lvl) 106 98-[address] [facility] HospitalRfgazkkHAZESQYEHFCG9515-91-96 14:39:00 Test Item Value Reference Range Interpretation Comments CO2 (test code = CO2) 29 20-[address] [facility] HospitalNtvpmhsOXRGMVZDPL9496-03-09 14:39:00 Test Item Value Reference Range Interpretation Comments WBC X 10x3 (test code = WBC X 10x3) 6.0 3.8-10.[address] [facility] [facility] HospitalJlbryvlWFDCOAQXFX8557-55-71 14:39:00 Test Item Value Reference Range Interpretation Comments RBC X 10x6 (test code = RBC X 10x6) 4.54 3.80-5.[address] [facility] [facility] HospitalGbqwtsbTKBLOIGBDA9763-80-86 14:39:00 Test Item Value Reference Range Interpretation Comments Hgb (test code = Hgb) 13.0 11.7-15.[address] [facility] [facility] HospitalVptleqeQYVLYJBCMF9661-67-54 14:39:00 Test Item Value Reference Range Interpretation Comments Hct (test code = Hct) 38.8 35.0-45.[address] [facility] HospitalUqhqazxOSSECCKTWL9829-30-81 14:39:00 Test Item Value Reference Range Interpretation Comments MCV (test code = MCV) 85.5 80.0-100.[address] [facility] HospitalUubymzmWFOVQLBLPY6427-63-31 14:39:00 Test Item Value Reference Range Interpretation Comments MCH (test code = MCH) 28.6 pg 27.0-33.[address] [facility] HospitalZzbgzzeFYMEEVGOKU4388-21-44 14:39:00 Test Item Value Reference Range Interpretation Comments MCHC (test code = MCHC) 33.5 32.0-36.[address] [facility] HospitalKzatdbkYBPYTBDAWX8013-61-83 14:39:00 Test Item Value Reference Range Interpretation Comments RDW (test code = RDW) 13.4 11.0-15.[address] [facility] HospitalNdyzrfmQIHEGPMOUZ8186-88-38 14:39:00 Test Item Value Reference Range Interpretation Comments Platelet (test code = Platelet) 213 140-[address] [facility] [facility] HospitalKjpemsrQIXZGEYHDD4990-72-18 14:39:00 Test Item Value Reference Range Interpretation Comments MPV (test code = MPV) 10.3 7.5-12.[address] [facility] HospitalUkzmkqpNGJPUVNMAQ8974-79-42 14:39:00 Test Item Value Reference Range Interpretation Comments Neutrophils # (test code = Neutrophils 3600 6315-0421 #) [facility] HospitalKqxtgynMCYFMGQQAB7787-53-42 14:39:00 Test Item Value Reference Range Interpretation Comments Lymphocytes # (test code = Lymphocytes 9313 328-9737 #) [facility] HospitalTwvfomgRLDCMXEXQP8039-18-77 14:39:00 Test Item Value Reference Range Interpretation Comments Monocytes # (test code = Monocytes #) 318 200-[address] [facility] [facility] HospitalKwvrmovGKHQQOMJLS0807-94-26 14:39:00 Test Item Value Reference Range Interpretation Comments Eosinophils # (test code = Eosinophils 120 15-500 #) [facility] HospitalElvnxskKMFXDXKOVW9084-68-74 14:39:00 Test Item Value Reference Range Interpretation Comments Basophils # (test code 30 See_Comment [Aut omated message] The = Basophils #) system which generated this result tra nsmitted reference range : <=200. The reference r marbella was not used to int erpret this result as normal/abnormal . [facility] HospitalLjdmyngFMTQFPPMUH2260-62-43 14:39:00 Test Item Value Reference Range Interpretation Comments Segs (test code = Segs) [address] [facility] [facility] HospitalUdiaywcQLVKBWJONY7659-73-24 14:39:00 Test Item Value Reference Range Interpretation Comments Lymphocytes (test code = Lymphocytes) 32.[address] [facility] [facility] HospitalLqrpumbKVSFHFDOJH5812-46-77 14:39:00 Test Item Value Reference Range Interpretation Comments Monocytes (test code = Monocytes) 5.[address] [facility] HospitalNkyyzlzBTEKHIIEBM1977-87-43 14:39:00 Test Item Value Reference Range Interpretation Comments Eosinophils (test code = Eosinophils) 2.[address] [facility] [facility] HospitalVnummopJXGOUQEOKR6270-09-89 14:39:00 Test Item Value Reference Range Interpretation Comments Basophils (test code = Basophils) 0.5 [facility]annCHE[facility] [id number] 14:39:0016[facility]annCHEM PANEL 2019-01-14 14:39:000.74[facility] HermannCHEM [id number] 14:39:0087[facility] HermannCHEM EZKHP8529-42-87 14:39:70602Wylsvoxe HermannCHEM GEQCV5199-50-25 14:39:0013[facility] HermannCHEM FAWBL6624-34-81 14:39:0014[facility] [place] LYHQMKKHURMD1169-87-61 14:39:27207Rqyuibgx NlnvzhmPRKIWNEQNSFL2445-09-75 14:39:003.5[facility]orial HlcagceMKXYSMMZZMEW1955-82-78 14:39:09315Njbjgsbr [place] STJIOYFVPHUE4239-49-46 14:39:0029[facility]orial CwwqmxhUIXHDFBXWR6083-77-37 14:39:00 6.0Memorial FavcvyfMMWWVXIOEL2543-75-30 14:39:004.54[facility] HermannHEMATOLOGY 2019-01-14 14:39:0013.0[facility]orial SbtqenrCMNMAUQJVM5733-28-18 14:39:0038.8[facility]orial SsapqhmZZYDVYXJBF1326-27-39 14:39:0085.5[facility]orial LufaooqDLGKIYCQKT4738-33-21 14:39:00 Test Item Value Reference Range Interpretation Comments MCH (test code = MCH) 28.6 pg 27.0-33.0 Memorial MpnyulqEUSRLVFEBK1237-49-05 14:39:0033.5[facility] HermannHEMATOLOGY 2019-01-14 14:39:0013.4[facility] CzozyasWRDNYCWNQD5497-57-53 14:39:13670Isdbatuc VkelsfxCXCAWCPPWI8601-30-51 14:39:0010.3[facility]orial GdjgkpyKZLCNZQSHJ0883-91-80 14:39:840192Oouqdgha HcqmoofXMJLILCFTM6551-63-44 14:39:962403Vlywfxwa Servando JQQHRSIOWL2106-02-28 14:39:72133Bzfpxskb DsuqvjeHYCIMKSHRA3308-81-79 14:39:15874 Memorial FpyoziuXQXDDWMPBT1879-89-19 14:39:0030[facility] HermannHEMATOLOGY 2019-01-14 14:39:0060[facility] OtkrvhuGUGKZBJZTJ7811-16-93 14:39:0032.2[facility]orial CpjmilpROVMMIVBPE3190-22-79 14:39:005.3[facility]orial EflbousNWVZRPASTS8752-32-53 14:39:002.0[facility]orial DdlmvlfYOOQMZCKNC5780-43-10 14:39:000.5[facility] HermannAMINO QDWA9239-43-97 18:41:00 Test Item Value Reference Range Interpretation Comments MMA Qnt (test code = MMA Qnt) 116 87-318 [facility] HermannANEMIA ETQAP1242-14-56 18:41:00 Test Item Value Reference Range Interpretation Comments Vitamin B12 Lvl (test code = Vitamin 460 341-1924 B12 Lvl) [facility]CHE[facility] MHLNL2891-01-33 18:41:00 Test Item Value Reference Range Interpretation Comments VITAMIN B1 (THIAMINE) WHOLE BLOOD (test 187 78-185 code = VITAMIN B1 (THIAMINE) WHOLE BLOOD) [facility] [id number] 18:41:00 Test Item Value Reference Range Interpretation Comments Sed Rate (test code = Sed Rate) 19 [facility] [id number] 18:41:00 Test Item Value Reference Range Interpretation Comments ACHr Block Ab (test code = ACHr Block no gt Ab) [facility] [id number] 18:41:00 Test Item Value Reference Range Interpretation Comments ACHr Binding Ab (test code = ACHr no gt Binding Ab) [facility] [id number] 18:41:15672Rojclkdv HermannANEMIA STUDY 2018-04-08 18:41:85968Sahcwyqc HermannCHEM [id number] 18:41:92534Cmvpdttx NwlyykpECMYVKQZBE0920-39-41 18:41:0019[facility] [id number] 18:41:00<15[facility] LmjtphlEZFEETZRUG6243-72-43 18:41:00<0.30[facility] HermannCBC W/PLT COUNT & AUTO [id number] 06:12:00 Test Item Value Reference Range Interpretation [...] = 2801) CBC W/PLT COUNT & AUTO [id number] 05:39:00 Test Item Value Reference Range Interpretation [...] = 2801) CBC W/PLT COUNT & AUTO [id number] 06:32:00 Test Item Value Reference Range Interpretation [...] = 2801) CBC W/PLT COUNT & AUTO [id number] 05:43:00 Test Item Value Reference Range Interpretation [...] Test performed by IFA method.YENI TITER AND [id number] 04:06:00 Test Item Value Reference Range Interpretation Comments YENI TITER (BEAKER) (test code = :160 1541) YENI PATTERN (BEAKER) (test code = Homogeneous 1781) BASIC METABOLIC [id number] 16:49:00 Test Item Value Reference Range Interpretation [...] APPLICABLE FOR DIALYSIS PATIEN TS. BASIC METABOLIC [id number] 07:04:00 Test Item Value Reference Range Interpretation [...] PATIEN TS. CBC W/PLT COUNT & AUTO [id number] 06:36:00 Test Item Value Reference Range Interpretation [...] (BEAKER) (test code = 2801) OCCULT BLOOD, [id number] 05:30:00 Test Item Value Reference Range Interpretation Comments FECAL OCCULT BLOOD (BEAKER) (test Positive Negative A code = 618) [id number] 06:02:00 Test Item Value Reference Range Interpretation Comments PHOSPHORUS (BEAKER) (test code = 3.8 mg/dL 2.3-4.7 604) [id number] 06:02:00 Test Item Value Reference Range Interpretation Comments MAGNESIUM (BEAKER) (test code = 2.0 mg/dL 1.6-2.6 627) BASIC METABOLIC [id number] 06:02:00 Test Item Value Reference Range Interpretation [...] PATIEN TS. CBC W/PLT COUNT & AUTO [id number] 05:39:00 Test Item Value Reference Range Interpretation [...] code = 2801) CT, TEMPORAL BONES, WO [id number] 10:09:00FINAL REPORT CT temporal bones Comparison: None Reason for exam: Left ear pain, otorrhea Discussion: Axial and coronal high resolution CT imaging of the temporal bones was providedevaluated with bone and soft tissue windows. Dose modulation, iterative reconstruction, and/or weight based adjustment of the mA/kV was utilized to reduce the radiation dose to as low as reasonably achi evable. On both sides, the external auditory canal, tympanic membrane, middle ear cavity, ossicles, mastoid air cells, inner ear structures, and IAC are within normal limits. The visualized orbital contents, remaining bones, and remaining soft tissues are unremarkable. Mucosal thickening and fluid areagain noted left sphenoid sinus. Correlate clinically for sphenoid sinusitis. Impressions: 1. Temporal bones themselves are unremarkable. 2. Left-sided sphenoid sinus mucosal thickening and fluid may represent acute sphenoid sinusitis. Signed: Titus Gonzalez Verified Date/Time: 02/16/2018 10:09:40 Reading Location: [address] Neuro Reading Room [id number] 07:09:00 Test Item Value Reference Range Interpretation Comments RPR SCREEN (BEAKER) (test code = Nonreactive Nonreactive 420) [id number] 06:11:00 Test Item Value Reference Range Interpretation Comments PHOSPHORUS (BEAKER) (test code = 3.9 mg/dL 2.3-4.7 604) [id number] 06:11:00 Test Item Value Reference Range Interpretation Comments MAGNESIUM (BEAKER) (test code = 2.0 mg/dL 1.6-2.6 627) BASIC METABOLIC [id number] 06:11:00 Test Item Value Reference Range Interpretation [...] PATIEN TS. CBC W/PLT COUNT & AUTO [id number] 05:50:00 Test Item Value Reference Range Interpretation [...] code = 2801) MR, MRA, BRAIN, WITHOUT [id number] 16:33:00FINAL REPORT MRA head and neck Comparison: None Reason for exam: Stroke Discussion: 2 D and 3-D kupk-ig-tetali MRA of the head and neck was provided with maximal intensity projection 3-D reconstructions of the cervical and intracranial arterial vasculatures. NASCET criteria are utilized when considering stenosis. Normal flow cervical carotid systems and cervical segment vertebralarteries with no stenosis by NASCET criteria. Normal flow intracranial internal carotid arteries andin the carotid terminus branches proximally both sides. [...] Titus Gonzalez Verified Date/Time: 02/15/2018 16:33:17 Reading Location:[address] Neuro Reading Room MR, MRA, NECK, WITHOUT IV [id number] 16:33:00FINAL REPORT MRA head and neck Comparison: None Reason for exam: Stroke Discussion: 2 D and 3-D ojfe-wk-doztyk MRA of the head and neck was provided with maximal intensity projection 3-D reconstructions of the cervical and intracranial arterial vasculatures. NASCET criteria are utilized when considering stenosis. Normal flow cervical carotid systems and cervical segment vertebralarteries with no stenosis by NASCET criteria. Normal flow intracranial internal carotid arteries andin the carotid terminus branches proximally both sides. [...] Titus Gonzalez Verified Date/Time: 02/15/2018 16:33:17 Reading Location:[address] Neuro Reading Room MR, BRAIN, WITHOUT CONTRAST 2018-02-15 16:29:00Reason for exam:->rule out strokeFINAL REPORT MRI brain Comparison: None Reason for exam: rule out strokeDizziness, r/o posterior circulation stroke. Discussion: Multiplanar MR imaging the brain was performed using T1, T2, FLAIR, FFE, diffusion, and ADC map imaging. There are no intracranial hematomas, mass effect, hydrocephalus, shift, or extra-axial collections. There are no areas of abnormal diffusion restriction. Flow-voids are seen in the basilar and internal carotid arteries as well as in the large posterior dural sinuses. The pineal, sella, and craniocervical junction regions are unremarkable. The visualized orbital contents, skullbase and surrounding soft tissues are unremarkable. There is minimal fluid or mucosal thickening left sphenoid sinus.. Impressions: Unremarkable for age intracranial appearance. Left sphenoid sinus mucosal thickening versus fluid. Signed: Titus Gonzalez Verified Date/Time: 02/15/2018 16:29:08 Reading Location: [facility] C013V Neuro Reading Room TSH/FREE T4 IF [id number] 14:41:00 Test Item Value Reference Range Interpretation Comments THYROID STIMULATING HORMONE 2.89 uIU/mL 0.35-4.94 (BEAKER) (test code = 772) VITAMIN B12 AND [id number] 14:41:00 Test Item Value Reference Range Interpretation Comments VITAMIN B12 (BEAKER) (test code = 212 pg/mL 213-816 L 774) FOLATE (BEAKER) (test code = 362) 13.9 ng/mL >=7.0 CBC W/PLT COUNT & AUTO [id number] 13:41:00 Test Item Value Reference Range Interpretation [...] PERCENT (BEAKER) (test code = 2801) HEMOGLOBIN [id number] 09:36:00 Test Item Value Reference Range Interpretation Comments HEMOGLOBIN A1C (BEAKER) (test code = 5.9 % 4.3-6.1 368) [id number] 06:30:00 Test Item Value Reference Range Interpretation Comments PHOSPHORUS (BEAKER) (test code = 3.2 mg/dL 2.3-4.7 604) [id number] 06:30:00 Test Item Value Reference Range Interpretation Comments MAGNESIUM (BEAKER) (test code = 2.1 mg/dL 1.6-2.6 627) BASIC METABOLIC [id number] 06:30:00 Test Item Value Reference Range Interpretation [...] NOT APPLICABLE FOR DIALYSIS PATIEN TS. LIPID [id number] 06:30:00 Test Item Value Reference Range Interpretation Comments TRIGLYCERIDES (BEAKER) (test code = 232 mg/dL 540) CHOLESTEROL (BEAKER) (test code = 159 mg/dL 631) HDL CHOLESTEROL (BEAKER) (test code 36 mg/dL = 976) LDL CHOLESTEROL CALCULATED (BEAKER) 77 mg/dL (test code = 633) Triglyceride Reference Range: Low Risk <150 Borderline 150-199 High Risk 200- 499 Very High Risk >=500Cholesterol Reference Range: Low Risk <200 Borderline 200-239 High Risk >240HDL Cholesterol Reference Range: Low Risk >=60 High Risk <40LDL Cholesterol Reference Range: Optimal <100 Near Optimal 100-129 Borderline 130-159 High 160-189 Very High >=190HEPATIC FUNCTION [id number] 06:30:00 Test Item Value Reference Range Interpretation [...] 6-55 347) CREATINE KINASE (CK), TOTAL AND [id number] 06:30:00 Test Item Value Reference Range Interpretation Comments CREATINE KINASE TOTAL (BEAKER) 21 U/L 29-200 L (test code = 380) CREATINE KINASE-MB (BEAKER) (test 0.5 ng/mL 0.0-6.6 code = 750) CREATINE KINASE-MB INDEX (BEAKER) 2.4 % (test code = 395) CK-MB Reference Range:<6.7 Normal6.7-10.0 Borderline>10.0 AbnormalC- REACTIVE [id number] 06:30:00 Test Item Value Reference Range Interpretation Comments C-REACTIVE PROTEIN (BEAKER) (test 0.19 mg/dL 0.00-0.50 code = 676) TSH/FREE T4 IF [id number] 06:17:00 Test Item Value Reference Range Interpretation Comments THYROID STIMULATING HORMONE 1.58 uIU/mL 0.35-4.94 (BEAKER) (test code = 772) TROPONIN [id number] 05:39:00 Test Item Value Reference Range Interpretation [...]
--- NOTE | 2022-12-24 20:46 | EDPHYS ---
Physician Documentation [facility] Name: Ina Gaffney Age: 67 yrs Sex: Female : 1955 Arrival Date: 12/24/2022 Time: 19:42 Bed DX4 Private MD: ED Physician Jamil Lin HPI: 12/24 20:34 This 67 yrs old Female presents to ER via Ambulatory with complaints of Eye cristhian Swelling. 20:34 The patient is experiencing pain, to the left eye. Onset: The symptoms/episode cristhian began/occurred 2 day(s) ago. Duration: the symptoms are continuous. Aggravated by nothing. Alleviated by covering eye. Associated signs and symptoms: Pertinent positives: headache. Patient wears glasses. Severity of symptoms: At their worst the symptoms were mild moderate in the emergency department the symptoms are unchanged. The patient has not experienced similar symptoms in the past. Historical: - Allergies: 19:57 No Known Allergies; mb9 - Home Meds: 19:57 atorvastatin Oral [Active]; Bupropion Oral [Active]; Omeprazole Oral [Active]; mb9 primidone Oral [Active]; - PMHx: 19:57 breast cancer; Depression; Hyperlipidemia; Hypothyroidism; mb9 - PSHx: 19:57 neck surgery; mb9 - Immunization history:: Adult Immunizations up to date. - Social history:: Smoking status: Patient reports the use of cigarette tobacco products, smokes one-half pack cigarettes per day. ROS: 20:36 Constitutional: Negative for fever, chills, and weight loss, ENT: Negative for injury, cristhian pain, and discharge, Neck: Negative for injury, pain, and swelling, Cardiovascular: Negative for chest pain, palpitations, and edema, Respiratory: Negative for shortness of breath, cough, wheezing, and pleuritic chest pain, Abdomen/GI: Negative for abdominal pain, nausea, vomiting, diarrhea, and constipation, Back: Negative for injury and pain, : Negative for injury, bleeding, discharge, and swelling, MS/Extremity: Negative for injury and deformity, Skin: Negative for injury, rash, and discoloration, Neuro: Negative for headache, weakness, numbness, tingling, and seizure, Psych: Negative for depression, anxiety, suicide ideation, homicidal ideation, and hallucinations, Allergy/Immunology: Negative for hives, rash, and allergies, Endocrine: Negative for neck swelling, polydipsia, polyuria, polyphagia, and marked weight changes, Hematologic/Lymphatic: Negative for swollen nodes, abnormal bleeding, and unusual bruising. 20:36 Eyes: Positive for pain, redness, of the left lower eyelid and left eye. Exam: 20:36 Constitutional: This is a well developed, well nourished patient who is awake, alert, cristhian and in no acute distress. ENT: Nares patent. No nasal discharge, no septal abnormalities noted. Tympanic membranes are normal and external auditory canals are clear. Oropharynx with no redness, swelling, or masses, exudates, or evidence of obstruction, uvula midline. Mucous membranes moist. Neck: Trachea midline, no thyromegaly or masses palpated, and no cervical lymphadenopathy. Supple, full range of motion without nuchal rigidity, or vertebral point tenderness. No Meningismus. Chest/axilla: Normal chest wall appearance and motion. Nontender with no deformity. No lesions are appreciated. Cardiovascular: Regular rate and rhythm with a normal S1 and S2. No gallops, murmurs, or rubs. Normal PMI, no JVD. No pulse deficits. Respiratory: Lungs have equal breath sounds bilaterally, clear to auscultation and percussion. No rales, rhonchi or wheezes noted. No increased work of breathing, no retractions or nasal flaring. Abdomen/GI: Soft, non-tender, with normal bowel sounds. No distension or tympany. No guarding or rebound. No evidence of tenderness throughout. Back: No spinal tenderness. No costovertebral tenderness. Full range of motion. Female : Normal external genitalia. Skin: Warm, dry with normal turgor. Normal color with no rashes, no lesions, and no evidence of cellulitis. MS/ Extremity: Pulses equal, no cyanosis. Neurovascular intact. Full, normal range of motion. Neuro: Awake and alert, GCS 15, oriented to person, place, time, and situation. Cranial nerves II-XII grossly intact. Motor strength 5/5 in all extremities. Sensory grossly intact. Cerebellar exam normal. Normal gait. Psych: Awake, alert, with orientation to person, place and time. Behavior, mood, and affect are within normal limits. 20:36 Head/face: Noted is erythema, swelling, that is mild, of the left cheek and left eye. 20:36 Eyes: Periorbital structures: erythema, that is mild, on the left lower eyelid, swelling, that is mild, on the left supraorbital ridge and left lower eyelid, Pupils: equal, round, and reactive to light and accomodation, Extraocular movements: intact throughout, Conjunctiva: normal, Corneas: are normal, no acute changes, no evidence of abrasion, no foreign body, Sclera: no appreciated abnormality, Anterior chamber: normal, no acute changes, Lids and lashes: appear normal, no acute changes, Visual bridges: are intact, Nystagmus: is not appreciated. Vital Signs: 19:55 BP 140 / 73; Pulse 74; Resp 18; Temp 98.2(O); Pulse Ox 100% on R/A; Weight 76.2 kg; mb9 Height 5 ft. 4 in. ; 19:55 Body Mass Index 28.84 (76.20 kg, 162.56 cm) mb9 MDM: 20:01 Patient medically screened. cristhian Administered Medications: 20:43 Drug: Trimethoprim-Sulfamethoxazole PO (160 mg-800 mg (DS) 1 tablet Route: PO; mb9 21:08 Follow up: Response: No adverse reaction mb9 20:45 Drug: valACYclovir PO 1000 mg Route: PO; mb9 21:08 Follow up: Response: No adverse reaction mb9 20:45 Drug: Tobrex Ophthalmic Ointment 0.3 % 1 application Route: Ophthalmic; Site: left eye; mb9 20:46 Drug: Hydrocodone-Acetaminophen PO (7.5 mg-325 mg) 1 tabs Route: PO; mb9 21:08 Follow up: Response: No adverse reaction mb9 Disposition Summary: 12/24/22 20:46 Discharge Ordered Location: Home cristhian Problem: new cristhian Symptoms: have improved cristhian Condition: Stable cristhian Diagnosis - Zoster without complications cristhian - Other conjunctivitis cristhian - Cellulitis and acute lymphangitis of face and neck cristhian Followup: cristhian - With: Private Physician - When: 2 - 3 days - Reason: Recheck today's complaints, Re-evaluation by your physician Followup: cristhian - With: Santo Miranda MD - When: Tomorrow - Reason: Recheck today's complaints, Continuance of care, Re-evaluation by your physician Discharge Instructions: - Discharge Summary Sheet cristhian - Shingles cristhian - Shingles, Zkea-zh-Kbuz [facility] - Preseptal Cellulitis, Adult [facility] Forms: - Medication Reconciliation Form [facility] - Thank You Letter [facility] - Antibiotic Education [facility] - Prescription Opioid Use [facility] - Patient Portal Instructions [facility] - Leadership Thank You Letter [facility] Prescriptions: - Valtrex 1 gram Oral tablet - take 1 tablet by ORAL route every 8 hours for 7 days; 21 tablet; Refills: 0, [facility] Product Selection Permitted - acetaminophen-codeine 300-30 mg Oral tablet - take 2 tablet by ORAL route every 6 hours as needed for pain; 20 tablet; [facility] Refills: 0, Product Selection Permitted - tobramycin 0.3 % Ophthalmic ointment - instill 1 application by OPHTHALMIC route every 6 hours for 7 days; 3.5 gram; [facility] Refills: 0, Product Selection Permitted - Bactrim DS 800-160 mg Oral Tablet - take 1 tablet by ORAL route every 12 hours for 10 days; 20 tablet; Refills: 0, [facility] Product Selection Permitted Signatures: Jamil Lin MD MD cha Breneman, Mary Beth RN RN mb9
--- NOTE | 2022-12-24 20:46 | ER ---
Nurse's Notes [facility] Name: Ina Gaffney Age: 67 yrs Sex: Female : 1955 Arrival Date: 12/24/2022 Time: 19:42 Bed DX4 Private MD: Diagnosis: Zoster without complications;Other conjunctivitis;Cellulitis and acute lymphangitis of face and neck Presentation: 12/24 19:55 Chief complaint: Patient states: "Yesterday, my left eye and face started getting mb9 swollen. I haven't changed anything or didn't eat bit by any insects. It hurts real bad. I don't know if it;s my allergies or what". Coronavirus screen: At this time, the client does not indicate any symptoms associated with coronavirus-19. Ebola Screen: No symptoms or risks identified at this time. Initial Sepsis Screen: Does the patient meet any 2 criteria? No. Patient's initial sepsis screen is negative. Does the patient have a suspected source of infection? No. Patient's initial sepsis screen is negative. Risk Assessment: Do you want to hurt yourself or someone else? Patient reports no desire to harm self or others. Onset of symptoms was 2022. 19:55 Method Of Arrival: Ambulatory mb9 19:55 Acuity: SHE 4 mb9 Triage Assessment: 19:59 General: Appears in no apparent distress. Behavior is calm, cooperative. Pain: mb9 Complains of pain in face Pain does not radiate. Pain: Quality of pain is described as burning, Pain began 1 day ago. EENT: Neuro: Ro Agitation-Sedation Scale (RASS): 0 - Alert and Calm Level of Consciousness is awake, alert, obeys commands, Oriented to person, place, time, situation, Appropriate for age. Cardiovascular: Patient's skin is warm and dry. Respiratory: Airway is patent Respiratory effort is even, unlabored, Respiratory pattern is regular, agonal. GI: No signs and/or symptoms were reported involving the gastrointestinal system. : No signs and/or symptoms were reported regarding the genitourinary system. Derm: Skin is pink, warm \\T\\ dry. Musculoskeletal: Swelling present in face and left eye. Historical: - Allergies: 19:57 No Known Allergies; mb9 - Home Meds: 19:57 atorvastatin Oral [Active]; Bupropion Oral [Active]; Omeprazole Oral [Active]; mb9 primidone Oral [Active]; - PMHx: 19:57 breast cancer; Depression; Hyperlipidemia; Hypothyroidism; mb9 - PSHx: 19:57 neck surgery; mb9 - Immunization history:: Adult Immunizations up to date. - Social history:: Smoking status: Patient reports the use of cigarette tobacco products, smokes one-half pack cigarettes per day. Assessment: 21:07 Reassessment: No changes from previously documented assessment. Patient and/or family mb9 updated on plan of care and expected duration. Pain level reassessed. Patient is alert, oriented x 3, equal unlabored respirations, skin warm/dry/pink. Vital Signs: 19:55 BP 140 / 73; Pulse 74; Resp 18; Temp 98.2(O); Pulse Ox 100% on R/A; Weight 76.2 kg; mb9 Height 5 ft. 4 in. ; 19:55 Body Mass Index 28.84 (76.20 kg, 162.56 cm) mb9 ED Course: 19:46 Patient arrived in ED. im 19:57 Triage completed. mb9 19:59 Arm band placed on. mb9 20:01 Jamil Lin MD is Attending Physician. [facility] 20:43 Santo Miranda MD is Referral Physician. [facility] 21:08 Call light in reach. Client placed on continuous cardiac and pulse oximetry monitoring. mb9 NIBP monitoring applied. 21:09 No provider procedures requiring assistance completed. Patient did not have IV access mb9 during this emergency room visit. Administered Medications: 20:43 Drug: Trimethoprim-Sulfamethoxazole PO (160 mg-800 mg (DS) 1 tablet Route: PO; mb9 21:08 Follow up: Response: No adverse reaction mb9 20:45 Drug: valACYclovir PO 1000 mg Route: PO; mb9 21:08 Follow up: Response: No adverse reaction mb9 20:45 Drug: Tobrex Ophthalmic Ointment 0.3 % 1 application Route: Ophthalmic; Site: left eye; mb9 20:46 Drug: Hydrocodone-Acetaminophen PO (7.5 mg-325 mg) 1 tabs Route: PO; mb9 21:08 Follow up: Response: No adverse reaction mb9 Medication: 21:09 VIS not applicable for this client. mb9 Outcome: 20:46 Discharge ordered by . cristhian 21: Discharged to home ambulatory. mb9 21: Condition: stable 21:09 Discharge instructions given to patient, Instructed on discharge instructions, follow up and referral plans. Demonstrated understanding of instructions, follow-up care, medications, Prescriptions given X 4. 21:09 Patient left the ED. mb9 Signatures: Jamil Lin MD MD cha Breneman, Nikia Danielson RN RN mb9 Gala Venegas
[2022-12-24] MEDS ORDERED: SMZ./TMP. 800/160 MG TABLET ONE (21:07)
[2022-12-24] MEDS ORDERED: TOBRAMYCIN SULF 0.3% OPTH OINT ONE (21:07)
[2022-12-24] MEDS ORDERED: HYDROCODONE/APAP 7.5/325 MG TAB ONE (21:07)
[2022-12-24] MEDS ORDERED: VALACYCLOVIR 500 MG TAB ONE (21:08)
[2022-12-24 21:17] VITALS: BP 140/73; TEMP 98.2; O2SAT 100
== END 2022-12-24 21:09 | disposition home or self-care (01) ==
LOC: ER 19:42
DX: B02.9 Zoster without complications (principal); H10.89 Other conjunctivitis; L03.211 Cellulitis of face; L03.221 Cellulitis of neck; H57.12 Ocular pain, left eye; Z72.0 Tobacco use

== ENCOUNTER → 2023-07-23 | Emergency (ER) | payer OTHER ==
[~2023-07-23] MED LIST: ACETAMINOPHEN 325 MG TABLET ONE; HYDROCODONE/APAP 5/325 MG TAB ONE
--- NOTE | 2023-07-23 16:24 | RAD REPORT ---
EXAM DESCRIPTION: RAD - Knee Left 3 View - 07/23/2023 4:17 pm CLINICAL HISTORY: KNEE PAIN COMPARISON: No comparisons FINDINGS: Moderate osteoarthritis is seen affecting the medial joint compartment. No fracture or dis location. No significant joint effusion. No acute soft tissue finding.
--- NOTE | 2023-07-23 16:34 | RAD REPORT ---
EXAM DESCRIPTION: CT - CTFB CLINICAL HISTORY: fall COMPARISON: Head Brain W/Wo Con dated 12/25/2022 TECHNIQUE: Axial 2 mm thick images of the face were obtained with sagittal and coronal reconstructio n images. All CT scans are performed using dose optimization technique as appropriate and may include automated exposure control or mA/KV adjustment according to patient size. FINDINGS: No acute facial bone fracture is seen.The mandible is intact. The globes and orbital contents are grossly unremarkable.The paranasal sinuses and mastoids are essen tially clear. IMPRESSION: Negative for facial bone fracture.
--- NOTE | 2023-07-23 16:39 | RAD REPORT ---
EXAM DESCRIPTION: CT - CTHCSPWOC - 07/23/2023 4:29 pm CLINICAL HISTORY: Trauma, head and neck injury. FALL COMPARISON: Neck Angio dated 02/14/2018 TECHNIQUE: Axial 5 mm thick images of the head were obtained. Axial 2 mm thick images of the cervical spine were obtained with sagittal and coronal reconstruction images generated and reviewed. All CT scans are performed using dose optimization technique as appropriate and may include automated exposure control or mA/KV adjustment according to patient size. FINDINGS: CT HEAD WITHOUT CONTRAST: No acute hemorrhage, hydrocephalus or extra-axial collection is identified.No areas of brain edema or midline shift. The paranasal sinuses and mastoids are clear.The calvarium is intact. CT CERVICAL SPINE WITHOUT CONTRAST: No fracture or subluxation.Hardware is present spanning an C4-7. Post surgical fusion of the vertebra l bodies noted.No prevertebral soft tissues swelling is identified. IMPRESSION: No acute intracranial or cervical spine findings.
--- NOTE | 2023-07-23 17:32 | EDPHYS ---
Physician Documentation [facility] Name: Ina Gaffney Age: 68 yrs Sex: Female : 1955 Arrival Date: 07/23/2023 Time: 15:10 Bed 8 Private MD: [facility] ED Physician Saad Manuel HPI: 07/22 15:30 This 68 yrs old Female presents to ER via Ambulatory with complaints of Fall cp Injury. 15:30 Details of fall: The patient fell from an upright position, while walking. cp 15:30 Onset: The symptoms/episode began/occurred just prior to arrival. cp 15:30 Patient is a 68-year-old female who presents to the emergency department after cp reportedly losing her balance while walking in her home. Patient reports she fell and struck her left side of her face against the floor causing loss of consciousness. Patient also reports striking her left knee. C/o pain to left side of head, blurry vision. Historical: - Allergies: 15:16 No Known Allergies; ld1 - PMHx: 15:16 Hypothyroidism; Hyperlipidemia; Depression; breast cancer; ld1 - PSHx: 15:16 neck surgery; Mastoidectomy; Shoulder surgery; ld1 - Immunization history:: Adult Immunizations up to date. - Social history:: Smoking status: Patient denies any tobacco usage or history of. Patient/guardian denies using alcohol. ROS: 15:35 Constitutional: Negative for body aches, chills, fever, poor PO intake, cp 15:35 Eyes: Positive for blurry vision, cp 15:35 ENT: Positive for ear pain, Negative for drainage from ear(s), difficulty swallowing, difficulty handling secretions, 15:35 Cardiovascular: Negative for chest pain, palpitations, 15:35 Respiratory: Negative for cough, shortness of breath, wheezing, 15:35 Neuro: Positive for headache, loss of consciousness, Negative for altered mental status, numbness, syncope, weakness, 15:35 All other systems are negative, Exam: 15:40 Constitutional: The patient appears in no acute distress, alert, awake, cp non-diaphoretic, non-toxic, well developed, well nourished, 15:40 Head/face: Noted is tenderness, that is moderate, of the left ear, left cheek, left cp taoist, left jaw and left side of forehead, 15:40 Eyes: Pupils: equal, round, and reactive to light and accomodation, Extraocular movements: intact throughout, Conjunctiva: normal, no exudate, no injection, Sclera: no appreciated abnormality, Lids and lashes: appear normal, bilaterally, 15:40 ENT: External ear(s): are unremarkable, Ear canal(s): are normal, clear, TM's: dullness, bilaterally, Nose: External nose: no obvious acute abnormality, Nasal septum: is midline, Mouth: Lips: moist, Oral mucosa: pink and intact, moist, Posterior pharynx: Airway: no evidence of obstruction, patent, 15:40 Neck: C-spine: C-collar placed in ED, vertebral tenderness, that is mild, appreciated at C5 and C6, 15:40 Chest/axilla: Inspection: normal, Palpation: is normal, no crepitus, no tenderness, 15:40 Cardiovascular: Rate: normal, Rhythm: regular, Edema: is not appreciated, JVD: is not appreciated, 15:40 Respiratory: the patient does not display signs of respiratory distress, Respirations: normal, no use of accessory muscles, no retractions, labored breathing, is not present, Breath sounds: are clear throughout, no decreased breath sounds, no stridor, no wheezing, 15:40 Abdomen/GI: Inspection: abdomen appears normal, Palpation: abdomen is soft and non-tender, in all quadrants, 15:40 Back: vertebral tenderness, is not appreciated, 15:40 Musculoskeletal/extremity: Extremities: grossly normal except: noted in the anterior aspect of left knee: tenderness, ROM: full active range of motion, in the left knee, 15:40 Neuro: Orientation: to person, place \T\ time. Mentation: is normal, Motor: moves all fours, strength is normal, Sensation: is normal, Gait: is steady, at a normal pace, without difficulty, Vital Signs: 15:17 BP 141 / 94; Pulse 81; Resp 18; Temp 97.9(O); Pulse Ox 97% on R/A; Weight 74.39 kg; ld1 Height 5 ft. 4 in. ; Pain 8/10; 16:45 BP 140 / 77; Pulse 69; Resp 16; Pulse Ox 96% on R/A; Pain 2/10; nj1 17:30 BP 133 / 81; Pulse 66; Resp 18; Pulse Ox 95% on R/A; db 15:17 Body Mass Index 28.15 (74.39 kg, 162.56 cm) ld1 15:17 Pain Scale: Adult ld1 16:45 Pain Scale: Adult nj1 MDM: 15:22 Patient medically screened. cp 17:00 Differential diagnosis: abrasion, closed head injury, contusion, fracture, multiple cp trauma. 17:31 Data reviewed: vital signs, nurses notes, radiologic studies, CT scan. cp 17:31 I considered the following discharge prescriptions or medication management in the cp emergency department Medications were administered in the Emergency Department. See MAR. Counseling: I had a detailed discussion with the patient and/or guardian regarding the historical points, exam findings, and any diagnostic results supporting the discharge/admit diagnosis, radiology results. Response to treatment: the patient's symptoms have mildly improved after treatment, and as a result, I will discharge patient. Special discussion: Based on the patient's history, exam and DX evaluation, there is no indication for emergent intervention or inpatient TX. It is understood by the patient/guardian that if the SXs persist or worsen they need to return immediately for re-evaluation. 07/22 15:23 Order name: CT Head C Spine cp 07/22 15:23 Order name: XRAY Knee LEFT 3 view cp 07/22 15:23 Order name: CT Facial Bones W/O Con cp 07/22 16:24 Order name: RAD; Complete Time: 17:17 EDMS 07/22 17:18 Interpretation: Report reviewed. cp 07/22 16:35 Order name: CT; Complete Time: 17:17 EDMS 07/22 17:18 Interpretation: Report reviewed. cp 07/22 16:40 Order name: CT; Complete Time: 17:17 EDMS 07/22 17:18 Interpretation: Report reviewed. cp Administered Medications: 15:48 Drug: Acetaminophen PO 650 mg PO once Route: PO; nj1 18:01 Follow up: Response: No adverse reaction db 15:48 Drug: [place] PO 5 mg-325 mg 1 tabs PO once Route: PO; nj1 18:01 Follow up: Response: No adverse reaction db Disposition Summary: 07/23/23 17:32 Discharge Ordered Notes: Location: Home cp Problem: new cp Symptoms: have improved cp Condition: Stable cp Diagnosis - Acute post-traumatic headache cp - Pain in left knee cp - Fall on same level from slipping, tripping and stumbling without subsequent cp striking against object Followup: cp - With: Private Physician - When: 2 - 3 days - Reason: Recheck today's complaints Discharge Instructions: - Discharge Summary Sheet cp - Elastic Bandage and RICE Therapy cp - Head Injury, Adult cp - Acute Knee Pain, Adult cp Forms: - Medication Reconciliation Form cp - Thank You Letter cp - Antibiotic Education cp - Prescription Opioid Use cp - Patient Portal Instructions cp - Leadership Thank You Letter cp Signatures: Dispatcher [employer] EDMS Jamil Calle PA PA cp Sims, Lauren, RN RN ld1 Lizzie Hernandez RN RN nj1 Genie Hameed RN db Corrections: (The following items were deleted from the chart) 07/23 16:58 07/22 15:30 Patient is a 68-year-old female who presents to the emergency department cp after reportedly losing her balance while walking in her home. Patient reports she fell and struck her left side of her face against the floor causing loss of consciousness. Patient also reports. cp
--- NOTE | 2023-07-23 17:32 | ER ---
Nurse's Notes [facility] Name: Ina Gaffney Age: 68 yrs Sex: Female : 1955 Arrival Date: 07/23/2023 Time: 15:10 Bed 8 Private MD: Elroy Weinberg Diagnosis: Acute post-traumatic headache;Pain in left knee;Fall on same level from slipping, tripping and stumbling without subsequent striking against object Presentation: 07/22 15:17 Chief complaint: Patient states: 30 minutes ago pt slipped and fell at home - hit left ld1 side of face/cheek/left ear/left knee. Pt reports blurry vision. C/O pain to left side of face. Reports LOC, denies blood thinners. Coronavirus screen: At this time, the client does not indicate any symptoms associated with coronavirus-19. Ebola Screen: No symptoms or risks identified at this time. Initial Sepsis Screen: Does the patient meet any 2 criteria? No. Patient's initial sepsis screen is negative. Does the patient have a suspected source of infection? No. Patient's initial sepsis screen is negative. Risk Assessment: Do you want to hurt yourself or someone else? Patient reports no desire to harm self or others. Onset of symptoms was July 23, 2023. 15:17 Method Of Arrival: Ambulatory ld1 15:17 Acuity: SHE 3 ld1 Triage Assessment: 15:19 General: Appears in no apparent distress. comfortable, Behavior is calm, cooperative, ld1 appropriate for age. Pain: Complains of pain in left ear, left cheek and left jaw Pain does not radiate. Pain currently is 8 out of 10 on a pain scale. Quality of pain is described as throbbing. EENT: No signs and/or symptoms were reported regarding the EENT system. Neuro: Level of Consciousness is awake, alert, obeys commands, Oriented to person, place, time, situation, Reports blurred vision. Cardiovascular: Capillary refill < 3 seconds Patient's skin is warm and dry. Respiratory: Airway is patent Respiratory effort is even, unlabored. GI: Abdomen is round non-distended. : No signs and/or symptoms were reported regarding the genitourinary system. Derm: No signs and/or symptoms reported regarding the dermatologic system. Musculoskeletal: No signs and/or symptoms reported regarding the musculoskeletal system. Historical: - Allergies: 15:16 No Known Allergies; ld1 - PMHx: 15:16 Hypothyroidism; Hyperlipidemia; Depression; breast cancer; ld1 - PSHx: 15:16 neck surgery; Mastoidectomy; Shoulder surgery; ld1 - Immunization history:: Adult Immunizations up to date. - Social history:: Smoking status: Patient denies any tobacco usage or history of. Patient/guardian denies using alcohol. Screenin:49 [facility] ED Fall Risk Assessment (Adult) Score/Fall Risk Level 0 - 2 = Low Risk nj1 Oriented to surroundings, Maintained a safe environment, Hourly rounding (assess needs \T\ fall precautionary measures) done. Abuse screen: Denies threats or abuse. Denies injuries from another. Nutritional screening: No deficits noted. Tuberculosis screening: No symptoms or risk factors identified. Assessment: 15:20 Reassessment: ERP in triage assessing patient. C collar applied to patient at this time.ld1 15:48 General: Appears in no apparent distress. uncomfortable, Behavior is calm, cooperative, nj1 appropriate for age. Pain: Complains of pain in face, left side and left knee Pain currently is 8 out of 10 on a pain scale. Neuro: Level of Consciousness is awake, alert, obeys commands, Oriented to person, place, time, situation. Cardiovascular: Patient's skin is warm and dry. Respiratory: Airway is patent Respiratory effort is even, unlabored. 16:45 Reassessment: Patient appears in no apparent distress at this time. Patient and/or nj1 family updated on plan of care and expected duration. Pain level reassessed. Patient is alert, oriented x 3, equal unlabored respirations, skin warm/dry/pink. 17:30 Reassessment: Patient appears in no apparent distress at this time. Patient and/or db family updated on plan of care and expected duration. Pain level reassessed. Patient is alert, oriented x 3, equal unlabored respirations, skin warm/dry/pink. Vital Signs: 15:17 BP 141 / 94; Pulse 81; Resp 18; Temp 97.9(O); Pulse Ox 97% on R/A; Weight 74.39 kg; ld1 Height 5 ft. 4 in. ; Pain 8/10; 16:45 BP 140 / 77; Pulse 69; Resp 16; Pulse Ox 96% on R/A; Pain 2/10; nj1 17:30 BP 133 / 81; Pulse 66; Resp 18; Pulse Ox 95% on R/A; db 15:17 Body Mass Index 28.15 (74.39 kg, 162.56 cm) ld1 15:17 Pain Scale: Adult ld1 16:45 Pain Scale: Adult nj1 ED Course: 15:11 Patient arrived in ED. rg4 15:11 Elroy Weinberg DO is Private Physician. rg4 15:11 Jamil Calle PA is PHCP. cp 15:11 Saad Manuel MD is Attending Physician. cp 15:19 Triage completed. ld1 15:19 Arm band placed on right wrist. ld1 15:34 Lizzie Hernandez, ALBERT is Primary Nurse. nj1 15:49 Patient has correct armband on for positive identification. Bed in low position. Call nj1 light in reach. Side rails up X 1. Adult w/ patient. Provided Education on: call light, fall precautions. 17:59 No provider procedures requiring assistance completed. Patient did not have IV access db during this emergency room visit. Dominik wrap to left knee. Administered Medications: 15:48 Drug: Acetaminophen PO 650 mg PO once Route: PO; nj1 18:01 Follow up: Response: No adverse reaction db 15:48 Drug: [place] PO 5 mg-325 mg 1 tabs PO once Route: PO; nj1 18:01 Follow up: Response: No adverse reaction db Medication: 17:59 VIS not applicable for this client. db Outcome: 17:32 Discharge ordered by MD. cp 17:59 Discharged to home ambulatory, db 17:59 Condition: stable 17:59 Discharge instructions given to patient, Instructed on discharge instructions, follow up and referral plans. 18:01 Patient left the ED. db Signatures: Jamil Calle PA PA cp Garcia, Rubi rg4 Naida Reyna RN RN ld1 Genie Hameed RN RN db Lizzie Hernandez RN RN nj1 Corrections: (The following items were deleted from the chart) 15:19 15:17 Chief complaint: Patient states: 30 minutes ago pt slipped and fell at home - hit ld1 left side of face/cheek/left ear. C/O pain to left side of face. Reports LOC, denies blood thinners. ld1 16:50 16:45 Pulse 69bpm; Resp 16bpm; Pulse Ox 96% RA; Pain 06/22, Adult; nj1 nj1
[2023-07-23 18:28] VITALS: BP 133/81; TEMP 97.9; O2SAT 95
== END ==
LOC: ER 15:10
DX: G44.319 Acute post-traumatic headache, not intractable (principal); M25.562 Pain in left knee; W01.0XXA Fall on same level from slipping, tripping and stumbling without subsequent striking against object, initial encounter
CPT/HCPCS: 70450; 70486; 72125; 76377

== ENCOUNTER 2024-05-28 06:28 | Day surgery (SDC) | payer OTHER ==
[2024-05-27 12:33] LABS: Absolute Eosinophils 0.1 K/uL (0-0.5); Absolute Lymphocytes (CBC) 2.7 K/uL (0.7-4.9); Absolute Monocytes 0.4 K/uL (0.1-1.3); Absolute Neutrophil 3.2 K/uL (1.8-8.0); Basophils % 0.6 % (0-1.3); Eosinophils % 1.7 % (0-4.4); Hematocrit 39.8 % (36.0-45.0); Hemoglobin 13.3 g/dL (12.0-15.0); Lymphocytes % 42.4 % (15.3-44.8); MCH 29.4 pg (27.0-35.0); MCHC 33.6 g/dL (32.0-36.0); MCV 87.7 fL (80-100); MPV 8.5 fL (7.6-11.3); Monocytes % 5.8 % (3.3-12.3); Neutrophils % 49.5 % (41.7-73.7); Platelets 230 thou/uL (152-406); RBC Red Blood Cell Count 4.54 M/uL (3.86-4.86)
[2024-05-28] MEDS ORDERED: Ringers Lactate 1,000 ML IV ONE (06:40)
[2024-05-28] MEDS ORDERED: SUGAMMADEX SODIUM 200 MG/2 ML VIAL IV ONE (07:05)
[2024-05-28] MEDS ORDERED: HYDROMORPHONE HCL 1 MG/ML INJ ONE (07:05)
[2024-05-28] MEDS ORDERED: ONDANSETRON 4 MG/2 ML VIAL ONE (07:11)
[2024-05-28] MEDS ORDERED: LIDOCAINE 2% MPF 5 ML VIAL ONE (07:11)
[2024-05-28] MEDS ORDERED: propofoL 200 MG/20 ML VIAL IV ONE (07:11)
[2024-05-28] MEDS ORDERED: FENTANYL CITR 100 MCG/2 ML ONE (07:11)
[2024-05-28] MEDS ORDERED: MIDAZOLAM HCL 2 MG/2 ML INJ ONE (07:12)
[2024-05-28] MEDS ORDERED: ROCURONIUM 50 MG/5 ML VIAL IV ONE (07:12)
[2024-05-28] MEDS ORDERED: NA CHLORIDE 0.9% 250 ML ONE (07:14)
[2024-05-28] MEDS ORDERED: OXYMETAZOLINE HCL 0.05% 15ML NAS ONE (07:14)
[2024-05-28] MEDS ORDERED: NA CHLORIDE 0.9% 500 ML ONE (07:15)
[2024-05-28 07:17] LABS: Anion Gap 7.5 mEq/L (5.0-15.0); Potassium 3.5 mEq/L (3.5-5.1)
[2024-05-28] MEDS ORDERED: dexAMETHasone 10 MG/ML VIAL ONE (07:55)
[2024-05-28] MEDS: CEFAZOLIN SODIUM 1 GM/VIAL ONE (07:55)
[2024-05-28] MEDS: LIDOCAINE HCL/EPINEPHRINE 20 ML MDV ONE (07:59)
[2024-05-28] MEDS: BACITRACIN OINTMENT 14 GM TUBE TOP ONE (08:30)
[2024-05-28] MEDS: HYDROMORPHONE HCL 1 MG/ML INJ ONE (09:12)
[2024-05-28] MEDS: ONDANSETRON 4 MG/2 ML VIAL ONE (09:20)
[2024-05-28] MEDS: PROMETHAZINE INJ 25 MG/ML AMP ONE (09:28)
[2024-05-29 02:06] VITALS: BP 125/72; TEMP 97.8; O2SAT 95
--- NOTE | 2024-06-01 11:50 | OP ---
Date of Procedure: 05/28/2024 Surgeon: EDIE CARDENAS Preoperative Diagnoses: 1.Bilateral chronic sphenoid sinusitis. 2.Bilateral hypertrophy of inferior turbinates. Postoperative Diagnoses: 1.Bilateral chronic sphenoid sinusitis. 2.Bilateral hypertrophy of inferior turbinates. Procedures: 1.Stereotactic radio image guidance. 2.Bilateral sphenoid sinus balloon sinuplasty with lavage. 3.Bilateral submucosal Coblation of inferior turbinates. Anesthesia: General endotracheal anesthesia was administered. I also infiltrated the inferior turbi leelee mucosa with approximately 5 mL of 1% lidocaine with 1:100,000 epinephrine. Estimated Blood Loss: Less than 5 mL. Specimens: None. Findings: Bilateral stenotic sphenoid sinus ostial openings with mucoid effusion involving bilateral sphenoid sinuses. Moderate bilateral inferior turbinate hypertrophy, 3/4. Complications: None. Disposition: Stable. The patient tolerated the procedure well. Indication For Procedure: The patient is a pleasant 69-year-old female, who presented to my office w ith recurrent headaches. On exam, the patient had hypertrophic inferior turbinates, but no adwoa piedad dence of effusion. CT scan of the sinuses was performed, which demonstrated effusion involving bilat eral sphenoid sinuses, which could potentially cause for her headaches. This was explained in detail . I recommended minimally invasive balloon sinuplasty with lavage and reducing the size of her infer ior turbinates. These were indications to bring the patient to the operating suite for the above-men tioned procedure. She understood, all questions were answered. Risks versus benefits and complicati ons were explained in detail and a consent form was signed, was placed in the chart. Description Of Procedure: The patient was transferred from the preoperative holding area to the oper ative suite by Department of Anesthesia, placed on the operating table supine, sedated, and intubated in normal fashion. Table was rotated 180 degrees and head rest was placed. I infiltrated the infer ior turbinate mucosa with approximately 5 mL of 1% lidocaine with 1:100,000 epinephrine. The patient was then sterilely prepped and draped. A 0-degree rigid nasal endoscope was introduced into bilateral nasal cavities after removing the Afri n-soaked nasal pledgets from the patient's nasal cavities. My attention was placed to the left sphen oid sinus ostial opening, which was moderately stenotic. The stereotactic radio image CT guidance system was calibrated to the patient and found to be working accurately. Utilizing the guidewire, I was able to navigate back to the left sphenoid sinus ostial opening. Once located, I gently inserted the balloon into the left sphenoid sinus and inflated it 3 times to 12 mmHg and deflated the balloon and removed it. I then irrigated the left sphenoid sinus w ith approximately 40 to 60 mL of sterile saline. The residual saline was suctioned with a straight s uction. Attention was then placed to the right sphenoid sinus in which the sinus was located utilbianca hardy the image guidance and through direct visualization. Once visualized, the balloon was gently inse rted into the right sphenoid sinus, which was moderately stenotic. I then inflated 3 times to 12 mmH g and deflated the balloon and removed it. I then irrigated the right sphenoid sinus with approximat dora 40 mL of sterile saline. The residual fluid was removed with a straight suction. Next, I inserted the Coblation Turbinator wand into the anterior face of the left inferior turbinate mucosa creating a submucous pocket and I advanced the wand posteriorly between the bone and mucosa an d performed left inferior turbinate Coblation on the setting of 7 for ablation and 3 of coagulation. The wand was then removed and my attention was placed to the right inferior turbinate. The Turbinat or wand was introduced by incising between the mucosa and the bone and then advancing the wand rubber extrusion machine operator iorly and submucous pocket was created. Right inferior turbinate Coblation was then performed on the setting of 7 for ablation and 3 of coagulation. There was little to no bleeding. [facility]. She tolerated the procedure well. We discharged home on antibiotic and analgesia [facility] and will follow up in one week or sooner if needed. KD/MODL Voice ID: [id number] Report ID: [id number]
== END 2024-05-28 11:46 | disposition home or self-care (01) ==
LOC: OR 06:28
PROVIDERS: ATTEND Otolaryngology Facial Plastic Surgery
PROC: 09QW4ZZ Repair Right Sphenoid Sinus, Percutaneous Endoscopic Approach (ICD-10-PCS; 2024-05-28)
PROC: 09QX4ZZ Repair Left Sphenoid Sinus, Percutaneous Endoscopic Approach (ICD-10-PCS; principal; 2024-05-28 07:30)
DX: J32.3 Chronic sphenoidal sinusitis (principal); J34.3 Hypertrophy of nasal turbinates
CPT/HCPCS: 31297; 30801; 61782; 85025; 80048; 36415 ×2; J2550; J2704; J2003; J2250; J3010; J1100; J1171 ×2; J2405 ×2; J7120; J7050; J7040; J0690